=== PATIENT | female | born 1970 | race Caucasian/White ===

== ENCOUNTER → 2017-08-07 13:33 | Outpatient (CLI) | payer MEDICAID, SELFPAY ==
--- NOTE | 2017-08-07 13:36 | US_ITS ---
US transvaginal HISTORY: ITS.REASON: history of uterine fibroid , heavy bleeding ORDERING PHYSICIAN: Obey Burt MD PATIENT AGE: 47 years FINDINGS: The uterus is 9.3 x 6 x 8 cm with a combined endometrial thickness of 12 mm. Nabothian cyst noted. There are 3 areas of heterogeneous echogenicity within the uterus consistent with fibroids one in the fundus of the uterus at 3.4 x 2.9 cm, one in the central aspect of the uterus at 2.8 x 2.4 cm, and one posterior 2.6 x 1.7 cm. Left ovary is 2.7 x 2 cm and contains a 9 mm cyst. There is a large benign-appearing right ovarian cyst which measures 6.7 x 4.4 cm. No cul-de-sac fluid. IMPRESSION: 1. Enlarged uterus with fibroid involvement. 2. Thickened endometrium at 12 mm. Endometrium is somewhat difficult to define secondary to the fibroids 3. 6.7 cm right ovarian cyst
[2017-08-07 14:45] LABS: Basophils % 0.3 % (0.1-2.0); Eosinophils # 0.2 K/mm3 (0.0-0.4); Eosinophils % 2.4 % (0.1-12.0); Hematocrit 38.5 % (37.0-47.0); Hemoglobin 12.3 g/dL (12.2-16.2); Lymphocytes # 2.4 K/mm3 (0.7-4.5); Lymphocytes % 35.5 K/mm3 (10-50); Mean Corpuscular HGB Conc 31.9 g/dL (31.8-35.4); Mean Corpuscular Hemoglobin 28.3 pg (27.0-31.2); Mean Corpuscular Volume 88.5 fl (81-99); Mean Platelet Volume 7.1 fl (7.4-10.4); Monocytes # 0.2 K/mm3 (0.1-1.0); Monocytes % 3.5 % (1.7-9.3); Neutrophils # 3.9 K/mm3 (1.8-7.8); Neutrophils % 58.2 % (37.0-80.0); Platelet Count 285 K/mm3 (142-424); Red Blood Count 4.35 M/mm3 (4.20-5.40); Red Cell Distribution Width 12.9 % (11.5-17.5); White Blood Count 6.8 K/mm3 (4.8-10.8)
== END ==
PROVIDERS: Obstetrics & Gynecology; Family Provider Nurse Practitioner; PCP Nurse Practitioner; Visit Provider Nurse Practitioner Obstetrics & Gynecology
DX: N93.8 Other specified abnormal uterine and vaginal bleeding (principal); D25.0 Submucous leiomyoma of uterus; R10.2 Pelvic and perineal pain
CPT/HCPCS: 36415; 76830; 85025

== ENCOUNTER → 2017-09-05 15:40 | Outpatient (CLI) | payer MEDICAID, SELFPAY | PROVIDERS: Family Provider Nurse Practitioner; PCP Nurse Practitioner; Visit Provider Obstetrics & Gynecology ==

== ENCOUNTER → 2017-09-09 15:55 | Outpatient (CLI) | payer MEDICAID, SELFPAY ==
[2017-09-09 16:38] LABS: Hematocrit 37.5 % (37.0-47.0); Hemoglobin 12.8 g/dL (12.2-16.2)
[2017-09-09 16:51] LABS: Urine Pregnancy, HCG Qual. Negative (Negative)
== END ==
PROVIDERS: Visit Provider Obstetrics & Gynecology
DX: Z01.818 Encounter for other preprocedural examination (principal); N92.0 Excessive and frequent menstruation with regular cycle; N85.2 Hypertrophy of uterus; N94.6 Dysmenorrhea, unspecified; D25.9 Leiomyoma of uterus, unspecified; R93.8 Abnormal findings on diagnostic imaging of other specified body structures; N83.209 Unspecified ovarian cyst, unspecified side; N93.8 Other specified abnormal uterine and vaginal bleeding; Z98.51 Tubal ligation status; Z98.891 History of uterine scar from previous surgery
CPT/HCPCS: 36415; 81025; 85014; 85018

== ENCOUNTER → 2019-03-19 15:54 | Outpatient (CLI) | payer BC, SELFPAY ==
[2019-03-19 16:33] LABS: Hemoglobin A1C 5.7 % (0.0-7.0)
[2019-03-19 16:42] LABS: Alanine Aminotransferase 20 U/L (12-78); Albumin Level 4.1 gm/dL (3.4-5.0); Albumin/Globulin Ratio 1.2 (1.1-1.8); Alkaline Phosphatase 59 U/L (46-116); Anion Gap 12.9 mEq/L (5-15); Aspartate Amino Transferase 16 U/L (15-37); Bilirubin,Total 0.4 mg/dL (0.2-1.0); Blood Urea Nitrogen 16 mg/dL (7-18); Carbon Dioxide 27 mmol/L (21.0-32.0); Chloride 101 mmol/L (98-107); Chol/HDL Ratio 4.4 (1-3.5); Cholesterol 289 mg/dL (140-200); Creatinine,Serum 0.54 mg/dL (0.55-1.02); Estimated Glomerular Filt Rate 120 ml/min (>60); Free Thyroxine Index 0.6 ug/dL (5.93-13.13); GFR (African American) 146 ML/MIN (>60); Globulin 3.4 gm/dl (1.3-3.2); Glucose 87 mg/dL (74-106); HDL Cholesterol 66 mg/dL (29-89); LDL Cholesterol 214 mg/dL (0-130); Potassium 3.9 mmoL/L (3.5-5.1); Sodium 137 mmol/L (136-145); T4 (Thyroxine) 1.9 ug/dl (4.7-13.3); Thyroid Stimulating Hormone 1.06 uIU/ml (0.358-3.740); Total Protein,Serum 7.5 gm/dL (6.4-8.2); Triglycerides 44 mg/dL (30-200); Triiodothryronine (T3) Uptake 32 % (31-39); VLDL Cholesterol 9 mg/dL (0-40)
[2019-03-22 06:39] LABS: Vitamin B12 345 pg/mL (232-1245)
[2019-03-23 06:15] LABS: Folate 14.4 ng/mL (>3.0); Vitamin D 25 Hydroxy 31.9 ng/mL (30.0-100.0)
== END ==
PROVIDERS: Visit Provider Nurse Practitioner
DX: E78.5 Hyperlipidemia, unspecified (principal); I10 Essential (primary) hypertension; R63.5 Abnormal weight gain; R53.83 Other fatigue
CPT/HCPCS: 36415; 80053; 80061; 82607; 82652; 82746; 83036; 84436; 84443; 84479

== ENCOUNTER 2019-04-13 13:00 | Outpatient (RCR) | payer OTHER, SELFPAY | END 2019-04-13 13:05 | disposition home or self-care (01) | LOC: OT 13:00 | PROVIDERS: Visit Provider Plastic Surgery Surgery of the Hand | DX: M79.641 Pain in right hand (principal) | CPT/HCPCS: 97110; 97140; 97166 ==

== ENCOUNTER → 2019-05-18 09:41 | Outpatient (POV) | payer BC, SELFPAY | PROVIDERS: Visit Provider Otolaryngology | DX: Z00.00 Encounter for general adult medical examination without abnormal findings (principal) ==

== ENCOUNTER 2020-01-28 14:00 | Outpatient (RCR) | payer OTHER, SELFPAY ==
--- NOTE | 2019-12-08 14:10 | HMH.PTOPEV ---
PT Outpatient Evaluation Rehab PT Outpatient Evaluation Start: 12/08/19 13:04 Freq: Status: Active Protocol: Document 12/08/19 13:52 CATHY (Rec: 12/08/19 14:09 PHORMEETA [id number]) Electronically Signed By Abdifatah Martinez, PT 12/08/19 13:52 Outpatient Therapy Subjective History Subjective History Pt is 49 yowf who presents with c/o pain all over my back and into my legs and its constant. x 3-4 wks after injury at work. 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 She reports she had a CT scan, but does not know the results of this study . She reports having difficulty with any activity, and even sitting or laying. She presents this date with exaggerated response to all palption and all testing performed. Chief Complaint Pain Symptom Type Ache,Throb,Sharp,Stabbing, Burning,Numbness,Tingling, Shooting Symptoms Relieved By Nothing Symptoms Aggravated By Prone,Supine,Sitting,Standing, Bending/Stooping,Physical Activity,Twisting,Walking, Lifting Prior Functional Limitations None Current Functional Limitations Reaching,Lifting,Housework, Dressing,Driving,Sleeping, Standing,Sitting,Squatting, Recreation Activity,Walking, Stairs,Bending/Stooping Symptom Description Constant and Continuous Level of pain today (0-10) 8 Pain scale - at its worst (0-10) 10 Lumbopelvic Eval Posture Thoracic Spine Posture Standing Position Neutral Lumbar Spine Posture Standing Position Neutral Assistive device Assistive Devices None / NA Gait Observation General Gait Pattern Observation No Deviations/Normal Palapation tenderness bilateral thoracic spinal tenderness Yes: 4/4 lumbar spinal tenderness Yes: 4/4 paraspinal tenderness Yes: 4/4 buttock tenderness Yes: 4/4 Lumbar/Sacral Palpation Findings Tenderness Lumbar/Sacral Palpation Overall Comment exaggerated response
--- NOTE | 2020-01-13 15:06 | HMH.RHREAS ---
Rehab Reassessment Rehab OP Re-assessment Start: 01/13/20 15:01 Freq: Status: Active Protocol: Document 01/13/20 15:02 CATHY (Rec: 01/13/20 15:06 CATHY [id number]) Electronically Signed By Abdifatah Martinez, PT 01/13/20 15:02 Rehab Re-assessment Subjective Subjective Pt reports 9/10 pain the this time after treatment session with no relief of symptoms at all per her report. Objective Objective Notes Lumbar AROM (in deg): Flex= 0- 40, Ext= 0-10, R SB= 0-10, L SB= 0-5. Assessment Progress Assessment No Progress Assessment Notes Pt has less lumbar AROM this date than she had on initial eval and continues to c/o pain acorss her entire lower back region without changes despite all attempts to relieve by therapy. Patient goals met none Goals Not Met ST,2,3,4,5 LT,2,3, 4,5,6 Revised Goals none Plan Plan Continue per initial POC. PATIENT WOULD BENEFIT FROM REFERRAL TO PAIN MANAGEMENT. Frequency of Therapy 2 x/wk Duration of therapy 8 wks Time and Billing Re-Eval Time 15 Re-Eval Billing Units 1 PHYSICIAN CERTIFICATION: I certify the specified therapy services for Radha Gabriel are required, authorized, and reviewed every 30 days.
== END 2020-01-28 15:00 | disposition home or self-care (01) ==
LOC: PT 14:00
PROVIDERS: Visit Provider Nurse Practitioner Family
DX: S39.012D Strain of muscle, fascia and tendon of lower back, subsequent encounter; S39.92XD Unspecified injury of lower back, subsequent encounter
CPT/HCPCS: 97010; 97014; 97033; 97035; 97110; 97140; 97163; 97164; G0283

== ENCOUNTER → 2020-02-17 14:17 | Outpatient (CLI) | payer OTHER, SELFPAY ==
--- NOTE | 2020-02-17 14:20 | MR_ITS ---
PROCEDURE: MR LUMBAR SPINE WO CON CLINICAL INDICATION: LOW BACK PAIN Low back pain following injury COMPARISON: No exams were available for comparison TECHNIQUE: Standard multiplanar multiecho sequences are performed without contrast. 3-D MIP and myelographic images are also rendered and reviewed FINDINGS: There is normal alignment. The spinal cord ends at the L1-L2 level. There is increased T1 and T2 signal in within the L1 vertebral body consistent with a lipid rich hemangioma or lipoma. L1-L2 and L2-L3 have an unremarkable appearance. L3-L4: Minimal concentric bulging disc along with mild facet and ligamentum hypertrophy with mild bilateral lateral recess and foraminal narrowing. L4-5: Mild bulging disc along with facet and ligamentum hypertrophy with bilateral lateral recess narrowing mild right llru-fa-rxmgwauy foraminal narrowing bilaterally. There is borderline narrowing of the canal at this level. L5-S1: Mild facet and ligamentum hypertrophic changes. No extruded herniated disc is evident. No acute fracture or malalignment. IMPRESSION: 1. L3-L4: Minimal concentric bulging disc along with mild facet and ligamentum hypertrophy with mild bilateral lateral recess and foraminal narrowing. 2. L4-5: Mild bulging disc along with facet and ligamentum hypertrophy with bilateral lateral recess narrowing mild right vahb-ef-gvldflxw foraminal narrowing bilaterally. There is borderline narrowing of the canal at this level. 3. L5-S1: Mild facet and ligamentum hypertrophic changes. 4. No extruded herniated disc or fracture apparent Dictated by: Marco Antonio Aguilar MD 02/19/2020 12:09 Marco Antonio Aguilar MD in [place] 02/19/2020 12:09
== END ==
PROVIDERS: PCP Nurse Practitioner Family; Visit Provider Nurse Practitioner Family
DX: S39.92XD Unspecified injury of lower back, subsequent encounter (principal); M54.5 Low back pain
CPT/HCPCS: 72148; 76376

== ENCOUNTER → 2020-03-20 10:31 | Outpatient (POV) | payer BC, SELFPAY ==
[2020-03-20 10:46] VITALS: BP 145/98; PULSE 96; RESP 18; TEMP 36.6; O2SAT 99; BMI 26.9
--- NOTE | 2020-03-20 12:32 | HMH.PMCON ---
Assessment and Plan (1) Degenerative disc disease Status: Chronic Qualifiers: Spinal region: lumbar Qualified Code(s): M51.36 - Other intervertebral disc degeneration, lumbar region Category: Medical (2) Lumbar radiculopathy Status: Chronic Category: Medical Code(s): M54.16 - Radiculopathy, lumbar region - Assessment and plan all Dx Assessment and Plan for all problems:: We will schedule the patient for an L4-L5 lumbar epidural steroid injection. I do believe given her symptomology that this will be beneficial with her. I answered all of her questions. I discussed the plan of treatment with her. Patient not on any anticoagulation therapy. I will follow-up with her after her injection reassess her symptoms at that time she has been instructed to call the office if she has any issues prior to next appointment. Dr. Charles has reviewed this note and agrees with this plan of care. This note was dictated using voice recognition software and may contain errors or omissions HPI - Data of Consult Consult date: 03/20/20 Requesting Physician: Mariya Kaur APRN Primary Care Provider: Leyla Vasquez APRN - Consult Narrative Reason for consult: Back pain, leg pain History of present illness: Ms. Gabriel is a 49 year old female who presents today with a complaint of low back pain. 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 She had low back pain with numbness and radiation of her pain. Patient at that time had a CT scan showing bulging disks and degeneration in her lower back. Patient since had an MRI that also shows these findings. Patient has pain in her low back radiating down bilateral lower extremities to her feet. All activity makes it worse with nothing decreases her pain. She is tried and failed medications including Tylenol, steroids, other anti-inflammatories. She rates her pain a 5 out of 10 today. She has difficulty with activities of daily living. Patient has continued physical therapy with no relief at this time. Patient is interested in injective therapy. CC: Mariya Kaur APRN [facility] History I have reviewed the patient's past medical history: Yes Medical History: Reports:: Hyperlipidemia, Hypertension Denies:: Anxiety, Cancer, Depression, Diabetes Mellitus Type 1, Diabetes Mellitus Type 2, Internal Pacemaker, MRSA, Seizures *Have you ever received a pneumonia vaccine?: Yes *Have you received a flu vaccine this season?: Yes Other Medical History: Denies: Blood Transfusion Reaction Other Surgeries: Yes: Appendectomy, BSO (RSO ), Cholecystectomy, Colonoscopy, , Dilation and Curettage, Tubal Ligation, Other. No: Pacemaker Amputation: No Fractures: No - *Social History Smoking Status: Never smoker Alcohol Intake: never Substance Use Type: denies use *Occupational Status:: other Housing: house Household Members: other *Travel in the last 8 weeks: None - Psychiatric History Pschychiatric History:: Denies:: Anxiety, Depression Family Hx:: Unable to obtain Review of Systems - Review of Systems ROS General: no recent weight change, no fever, no sleep disturbances Respiratory: no cough, no shortness of air, no recurring pulmonary infections Cardiovascular/Peripheral Vascular: No chest pain, No palpitations, no edema, no shortness of breath. Gastrointestinal: no new onset incontinence, normal bowel movements reported Genitourinary: no new onset incontinence Musculoskeletal: Back pain, leg pain Psychiatric: normal mood/ affect Neurological: [denies new onset weakness in extremities], [denies new onset balance issues] Meds Home Medications Medication Instructions Recorded Confirmed Type gemfibrozil 600 mg tablet 600 mg PO BID 30 Days #60 07/14/17 09/10/17 History minocycline 100 mg capsule 100 mg PO DAILY 30 Days #30 07/14/17 History spironolactone 25 25 mg PO DAILY 30 Days #30
== END ==
PROVIDERS: PCP Nurse Practitioner Family; Visit Provider Clinical Nurse Specialist Family Health
DX: M51.16 Intervertebral disc disorders with radiculopathy, lumbar region (principal)
CPT/HCPCS: 99202

== ENCOUNTER 2020-05-22 18:08 | Emergency (ER) | payer BC, SELFPAY ==
[2020-05-22 18:20] VITALS: BP 149/95; PULSE 93; RESP 18; TEMP 36.7; O2SAT 100; BMI 24.5
--- NOTE | 2020-05-22 18:29 | HMH.EDUTC ---
[facility] [place] Disposition Clinical Impression: Bronchitis, Viral syndrome Disposition: Home, Self-Care Condition on Discharge: Good Instructions: DI for Acute Bronchitis Additional Instructions: Drink plenty of fluids. Take tylenol for pain or fever. Return if you begin to have difficulty breathing. Follow up with your regular doctor. GO TO THE ER FOR ANY WORSENING SYMPTOMS Prescriptions: Benzonatate [Tessalon Perle 100mg Cap] 100 mg PO TIDP PRN #30 cap PRN Reason: Cough Transmission Status: Received by [facility] Azithromycin [Z-Anthony 250mg Tab*] 250 mg PO UD DOSE PK #6 tab Transmission Status: Received by [facility] Referrals: Marilee Elder APRN [Primary Care Provider] - Forms: Work/School Release Time of Disposition: 19:08 Medical Decision Making - Medical Records Medical records reviewed: No: I reviewed the patient's medical records. - Herve Inquiry Pt receiving controlled substance: No Vital Signs: 05/22/20 18:20 05/22/20 19:12 Temperature 98.1 F 98.1 F Temperature Source Oral Pulse Rate 93 H Pulse Rate [Right Brachial] 93 H Respiratory Rate 18 18 Blood Pressure 149/95 H Blood Pressure [Right Arm] 149/95 H Blood Pressure Mean [Right Arm] 113 Blood Pressure Source [Right Arm] Automatic Cuff Blood Pressure Position [Right Arm] Sitting 02 Sat by Pulse Oximetry 100 Oxygen Delivery Method Room Air - Lab Data Lab Results 05/22/20 18:39: Influenza Type A Ag Negative, Influenza Type B Ag Negative 05/22/20 18:55: Urine Color Yellow, Urine Appearance Clear, Urine pH 6.0, Ur Specific [place] 1.025, Urine Protein Negative, Urine Glucose (UA) Negative, Urine Ketones Negative, Urine Blood 3+, Urine Nitrate Negative, Urine Bilirubin Negative, Urine Urobilinogen 0.2, Ur Leukocyte Esterase Negative Orders (Tests/Meds): ORDERS Category Date Time Status Urine Culture Routine Micro 05/22/20 18:55 Received [facility] [place] HPI - General Stated complaint: fever,ears,cough,tighness in chest Time Seen by Provider: 05/22/20 18:25 - History of Present Illness Provider Complaint: She states that she had covid-19 about 3 weeks ago. She got better originally, but then over the past 1 week she has began coughing and feeling bad again. - Related Data Home Medications Medication Instructions Recorded Confirmed gemfibrozil 600 mg tablet 600 mg PO BID 30 Days #60 07/14/17 09/10/17 minocycline 100 mg capsule 100 mg PO DAILY 30 Days #30 07/14/17 spironolactone 25 25 mg PO DAILY 30 Days #30 07/14/17 09/10/17 mg-hydrochlorothiazide 25 mg tablet Phentermine HCl [Adipex-P] 37.5 mg PO DAILY 09/09/17 09/10/17 oxycodone-acetaminophen 5 mg-325 PO 3 Days #30 10/03/17 mg tablet Previous Rx's Medication Instructions Recorded medroxyprogesterone 10 mg tablet 10 mg PO BID #30 tab 09/03/17 ondansetron HCl 4 mg tablet 4 mg PO Q6H PRN #20 tab 09/12/17 Azithromycin [Z-Anthony 250mg Tab*] 250 mg PO UD DOSE PK #6 tab 05/22/20 Benzonatate [Tessalon Perle 100mg 100 mg PO TIDP PRN #30 cap 05/22/20 Cap] Allergies Allergy/AdvReac Type Severity Reaction Status Date / Time ciprofloxacin Allergy Severe Hives Verified 10/03/17 13:50 cefdinir [From OMNICEF] Allergy Mild Verified 10/03/17 13:50 phenazopyridine Allergy Mild Verified 10/03/17 13:50 [From PYRIDIUM] Sulfa (Sulfonamide Allergy Mild Verified 10/03/17 13:50 Antibiotics) [SULFA (SULFONAMIDE ANTIBIOTICS)] Penicillins [PENICILLINS] Allergy Unknown Verified 10/03/17 13:50 [facility] History - Hepatitis A Screen Attestation statement:: This patient has been screened for Hepatitis A risk factors. I have reviewed the patient's past medical history: Yes Medical History: Reports:: Hyperlipidemia, Hypertension Denies:: Anxiety, Cancer, Depression, Diabetes Mellitus Type 1, Diabetes Mellitus Type 2, Internal Pacemaker, MRSA, Seizures Other Medical History: Denies: Blood Transfusion Reaction Comment: Pt re
--- NOTE | 2020-05-22 18:39 | XR_ITS ---
PROCEDURE: XR CHEST 2V CLINICAL HISTORY: COUGH COMPARISON: No exams were available for comparison FINDINGS: The cardiomediastinal silhouette and pulmonary vascularity are within normal limits. The lungs are clear without infiltrates, suspicious nodules, or pleural effusions. No acute bony abnormalities. IMPRESSION: No acute findings. Dictated by: Marco Antonio Aguilar MD 05/22/2020 19:09 Marco Antonio Aguilar MD in [place] 05/22/2020 19:09
[2020-05-22 18:45] LABS: UTC Influenza A Antigen Negative (Negative); UTC Influenza B Antigen Negative (Negative)
[2020-05-22 19:07] LABS: Apearance,Urine Clear (Clear); Color,Urine Yellow (Yellow)
[2020-05-22 19:08] LABS: Blood, Urine 3+ (Negative); Glucose,Urine (UA) Negative (Negative); Ketones,Urine Negative (Negative); Protein,Urine Negative (Negative); Specific Gravity, Urine 1.025 (1.005-1.030)
[2020-05-22 19:09] LABS: Bilirubin,Urine Negative (Negative); Urobilinogen,Urine 0.2 EU/dl (0.2)
[2020-05-22 19:10] LABS: UTC Leukocyte Esterase,Urine Negative (Negative); UTC Nitrate,Urine Negative (Negative)
[2020-05-22 19:12] VITALS: BP 149/95; PULSE 93; RESP 18; TEMP 36.7; O2SAT 100
== END 2020-05-22 19:26 | disposition home or self-care (01) ==
PROVIDERS: Emergency Provider Nurse Practitioner Family; PCP Nurse Practitioner
DX: J20.9 Acute bronchitis, unspecified (principal); B34.9 Viral infection, unspecified; Z86.16 Personal history of COVID-19; I10 Essential (primary) hypertension; E78.5 Hyperlipidemia, unspecified; Z79.899 Other long term (current) drug therapy; Z88.0 Allergy status to penicillin; Z88.2 Allergy status to sulfonamides
CPT/HCPCS: 71046; 81003; 87086; 87804; 99202; G0463

== ENCOUNTER → 2020-10-26 11:08 | Outpatient (CLI) | payer BC, SELFPAY | PROVIDERS: Visit Provider Family Medicine | DX: R19.5 Other fecal abnormalities (principal) | CPT/HCPCS: 87045 ==

== ENCOUNTER → 2020-11-06 15:30 | Outpatient (CLI) | payer BC, SELFPAY ==
[2020-11-06 15:33] LABS: Adenovirus F 40/41, stool Not Detected (NotDetected); Astrovirus Not Detected (NotDetected); Campylobacter Not Detected (NotDetected); Clostridium Difficile A/B, PCR Not Detected (NotDetected); Cryptosporidium Not Detected (NotDetected); Cyclospora Cayetanesis Not Detected (NotDetected); Entamoeba histolytica Not Detected (NotDetected); Enteroaggregative E coli Not Detected (NotDetected); Enteropathogenic E coli Not Detected (NotDetected); Enterotoxigenic E coli Not Detected (NotDetected); Giardia lamblia Not Detected (NotDetected); Norovirus Not Detected (NotDetected); Plesimonas Shigalloides, PCR Not Detected (NotDetected); Rotavirus A Not Detected (NotDetected); Salmonella, PCR Not Detected (NotDetected); Sapovirus Not Detected (NotDetected); Shiga-like toxin E coli Not Detected (NotDetected); Shigella Enterovasive E coli Not Detected (NotDetected); Vibrio Cholerae Not Detected (NotDetected); Vibrio, PCR Not Detected (NotDetected); Yersinia Entercolitica, PCR Not Detected (NotDetected)
== END ==
PROVIDERS: Visit Provider Family Medicine
DX: A09 Infectious gastroenteritis and colitis, unspecified (principal)
CPT/HCPCS: 87507

== ENCOUNTER 2021-08-26 15:25 | Emergency (ER) | payer BC, SELFPAY ==
[2021-08-26 15:35] VITALS: BP 129/89; PULSE 103; RESP 18; TEMP 36.9; O2SAT 99; BMI 22.3
--- NOTE | 2021-08-26 15:46 | HMH.EDUTC ---
[facility] [place] Disposition Clinical Impression: Fluid level behind tympanic membrane of both ears Disposition: Home, Self-Care Condition on Discharge: Good Instructions: DI for Ear Pain-Adult Additional Instructions: follow up with pcp return or be seen in ed if no improvement or worsen Prescriptions: methylPREDNISolone [Medrol 4mg tab] 4 mg PO DIRECTED #21 tab Prescription Printed Referrals: Pio Cohen MD [Primary Care Provider] - Time of Disposition: 16:07 Medical Decision Making - Herve Inquiry Pt receiving controlled substance: No Vital Signs: 08/26/21 15:35 Temperature 98.4 F Temperature Source Oral Pulse Rate [Left Brachial] 103 H Respiratory Rate 18 Blood Pressure [Left Arm] 129/89 Blood Pressure Mean [Left Arm] 102 Blood Pressure Source [Left Arm] Automatic Cuff Blood Pressure Position [Left Arm] Sitting 02 Sat by Pulse Oximetry 99 Oxygen Delivery Method Room Air Medical Decision Narrative: advised pt to go be checked in ed and have labs she declined [facility] [place] HPI - General Chief complaint: Urgent Treatment Center Stated complaint: light headed dizzy, ear pain Time Seen by Provider: 08/26/21 15:46 Mode of Arrival: Ambulatory Source of Information: Patient Limitations: No Limitations Description of Symptoms (Recalled from Triage Doc. by RN): PATIENT STATES SHE FEEL LIKE HER EARS ARE FULL AND SHE C/O DIZZY/LIGHT-HEADED EPISODE ON FRIDAY HEENT Symptoms (Recalled from RN notes): Yes Resp Symptoms (Recalled from RN notes): No Skin Symptoms (Recalled from RN notes): No MS Symptoms (Recalled from RN notes): No Functional Status (Recalled from RN notes): WNL - History of Present Illness Provider Complaint: 51 yr old female presents for ears feeling full and dizziness since friday. pt states this happens freq. pt does not want testing or to go to ed - Related Data Home Medications Medication Instructions Recorded Confirmed gemfibrozil 600 mg tablet 600 mg PO BID 30 Days #60 07/14/17 04/19/21 spironolactone 25 25 mg PO DAILY 30 Days #30 07/14/17 04/19/21 mg-hydrochlorothiazide 25 mg tablet Previous Rx's Medication Instructions Recorded estradiol 1 mg tablet 1 mg PO DAILY #30 tab 04/19/21 medroxyprogesterone 10 mg tablet 10 mg PO DAILY 30 Days #30 tab 04/19/21 methylPREDNISolone [Medrol 4mg 4 mg PO DIRECTED #21 tab 08/26/21 tab] Allergies Allergy/AdvReac Type Severity Reaction Status Date / Time ciprofloxacin Allergy Severe Hives Verified 04/19/21 15:43 cefdinir [From OMNICEF] Allergy Mild Verified 04/19/21 15:43 phenazopyridine Allergy Mild Verified 04/19/21 15:43 [From PYRIDIUM] Sulfa (Sulfonamide Allergy Mild Verified 04/19/21 15:43 Antibiotics) [SULFA (SULFONAMIDE ANTIBIOTICS)] Penicillins [PENICILLINS] Allergy Unknown Verified 04/19/21 15:43 - Worker's Comp Is this a Worker's Comp case?: No [facility] History - Hepatitis A Screen Attestation statement:: This patient has been screened for Hepatitis A risk factors. I have reviewed the patient's past medical history: Yes Medical History: Reports:: Hyperlipidemia, Hypertension Denies:: Anxiety, Cancer, Depression, Diabetes Mellitus Type 1, Diabetes Mellitus Type 2, Internal Pacemaker, MRSA, Seizures Other Medical History: Denies: Blood Transfusion Reaction Comment: Pt relates she has irregular menses and is going to have an ablation next week. Other Surgeries: Yes: Appendectomy, BSO (RSO ), Cholecystectomy, Colonoscopy, , Dilation and Curettage, Tubal Ligation, Other. No: Pacemaker Amputation: No Fractures: No - Social History Smoking Status: Never smoker Alcohol Intake: never Substance Use Type: denies use Occupational Status: other Housing: house Household Members: other - Psychiatric History Pschychiatric History:: Denies:: Anxiety, Depression Family Hx:: Unable to obtain ROS Obtained: Yes Systems reviewed as appropriate & no additional complaints - Constitut
[2021-08-26 16:10] VITALS: BP 129/89; PULSE 103; RESP 18; TEMP 36.9; O2SAT 99
== END 2021-08-26 16:15 | disposition home or self-care (01) ==
PROVIDERS: Emergency Provider Nurse Practitioner Family; PCP Family Medicine
DX: H65.93 Unspecified nonsuppurative otitis media, bilateral (principal); R42 Dizziness and giddiness; I10 Essential (primary) hypertension; Z88.0 Allergy status to penicillin; Z88.2 Allergy status to sulfonamides
CPT/HCPCS: 99212; G0463

== ENCOUNTER 2022-01-04 13:34 | Emergency (ER) | payer OTHER, BC, SELFPAY ==
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
[2022-01-04 15:06] VITALS: BP 141/115; PULSE 103; RESP 19; TEMP 37; O2SAT 100; BMI 24.5
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
[2022-01-04 16:56] VITALS: BP 120/80; PULSE 86; RESP 19; TEMP 37
== END 2022-01-04 16:59 | disposition home or self-care (01) ==
PROVIDERS: Emergency Provider Physician Assistant; PCP Family Medicine
DX: M25.80 Other specified joint disorders, unspecified joint; M62.838 Other muscle spasm; S13.4XXA Sprain of ligaments of cervical spine, initial encounter; R93.89 Abnormal findings on diagnostic imaging of other specified body structures; V43.92XA Unspecified car occupant injured in collision with other type car in traffic accident, initial encounter; Z88.0 Allergy status to penicillin; Z88.1 Allergy status to other antibiotic agents; Z88.2 Allergy status to sulfonamides
CPT/HCPCS: 72040; 99212; G0463

== ENCOUNTER → 2022-01-31 12:49 | Outpatient (CLI) | payer OTHER, BC, SELFPAY ==
--- NOTE | 2022-01-31 13:07 | CT_ITS ---
FINAL REPORT TECHNIQUE: Thin section axial CT images were obtained through the neck after intravenous contrast administration. Coronal and sagittal reformats were also obtained. This study was performed with techniques to keep radiation doses as low as reasonably achievable (ALARA). Individualized dose reduction techniques using automated exposure control or adjustment of mA and/or kV according to the patient''s size were employed. CLINICAL HISTORY: ABNORMAL XRAY OF C SPINE COMPARISON: Cervical spine radiographs dated 01/04/2022 and 07/22/2016 FINDINGS: The nasopharynx, oropharynx, hypopharynx and larynx are unremarkable. There are small neck nodes. There is no adenopathy. There is a calcified nodule in the left thyroid lobe measuring 17 mm. This appears stable as compared to radiographs dated 07/22/2016. The visualized sinuses are clear. There is no acute osseous abnormality. IMPRESSION: No acute process. Stable, 17 mm calcified nodule in the left thyroid lobe. Reviewed, Interpreted and Dictated by Adrien Poole III, MD Transcribed by Gwen Treadwell Authenticated and [facility]
[2022-01-31 13:17] LABS: Blood Urea Nitrogen 16 mg/dl (7-17); Estimated Glomerular Filt Rate 76 ml/min (>60); GFR (African American) 92 ML/MIN (>60)
== END ==
PROVIDERS: PCP Family Medicine; Visit Provider Family Medicine
DX: R93.7 Abnormal findings on diagnostic imaging of other parts of musculoskeletal system (principal)
CPT/HCPCS: 36415; 70491; 82565; 84520; Q9967

== ENCOUNTER 2022-03-08 15:00 | Outpatient (RCR) | payer OTHER, BC, SELFPAY | END 2022-03-08 15:05 | disposition home or self-care (01) | LOC: PT 15:00 | PROVIDERS: Visit Provider Physician Assistant | DX: M54.2 Cervicalgia (principal) | CPT/HCPCS: 20561; 97010; 97014; 97110; 97163; G0283 ==

== ENCOUNTER 2022-04-26 15:00 | Outpatient (RCR) | payer BC, OTHER, SELFPAY ==
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
--- NOTE | 2022-04-11 16:21 | HMH.RHREAS ---
Rehab Reassessment Rehab OP Re-assessment Start: 04/11/22 15:32 Freq: Status: Active Protocol: Document 04/11/22 15:32 RMNISHA (Rec: 04/11/22 16:21 RMARSHALL [id number]) E-signed By Luis uYan OT Rehab Re-assessment Subjective Subjective I don't see a real big difference. Objective Objective Notes Pt continues to be seen for left shoulder deficits. Pt engages in AROM, AAROM, and strengthening exercises at left shoulder. Pt receives PROM manual stretching to left shoulder in all planes. Modalities are provided in order to decrease pain/ inflammation. Assessment Progress Assessment Slower Than Expected Assessment Notes Pt has not attended a therapy session for 34 days. Pt reports she was not able to due to other health concerns; a mass was found in her c- spine. Pt continues to complain of the same pain in left shoulder, specifically in abduction. Pt's AROM and strength remain significantly limited. She recently saw her PCP who informed her to continue with therapy. At this time, no progress has been made. Her pain today at rest is 5/10. She still complains of her worst pain reaching a 9/10 during certain movements. Current AROM Flex: 110 degrees; 3- Abd: 65 degrees; 3- ER: 50 degrees; 3- IR: 35 degrees; 3- Patient goals met Pt has not met any goals at this time Goals Not Met See below Revised Goals ST-5 LT-5 Plan Plan Therapist will continue with OT plan of care at this time. However, pt would benefit from an MRI for further imaging due to continued
== END 2022-04-26 15:05 | disposition home or self-care (01) ==
LOC: OT 15:00
PROVIDERS: Visit Provider Physician Assistant
DX: M25.512 Pain in left shoulder (principal)
CPT/HCPCS: 97010; 97014; 97110; 97140; 97164; 97166; G0283

== ENCOUNTER → 2022-05-01 15:34 | Outpatient (CLI) | payer OTHER, BC, SELFPAY ==
--- NOTE | 2022-05-01 15:39 | XR_ITS ---
FINAL REPORT CLINICAL HISTORY: shoulder pain FINDINGS: LEFT SHOULDER 3 views of the left shoulder were obtained. There is no acute fracture or dislocation. The joint spaces are intact. There is no soft tissue abnormality. IMPRESSION: No acute bony abnormality. Reviewed, Interpreted and Dictated by Celestino Maxwell MD Transcribed by Liseth Higgins Authenticated and [facility]
== END ==
PROVIDERS: PCP Family Medicine; Visit Provider Physician Assistant Surgical
DX: M25.512 Pain in left shoulder (principal)
CPT/HCPCS: 73030

== ENCOUNTER → 2022-05-09 15:45 | Outpatient (CLI) | payer BC, SELFPAY ==
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
== END ==
PROVIDERS: PCP Physician Assistant Surgical; Visit Provider Physician Assistant Surgical
DX: M75.102 Unspecified rotator cuff tear or rupture of left shoulder, not specified as traumatic (principal)
CPT/HCPCS: 73221

== ENCOUNTER → 2022-06-05 09:53 | Outpatient (CLI) | payer OTHER, BC, SELFPAY ==
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
--- NOTE | 2022-06-05 09:54 | IR_ITS ---
FINAL REPORT CLINICAL HISTORY: shoulder injury 14 seconds fluoro time FINDINGS: Arthrogram Left shoulder injection for MRI arthrogram HISTORY: Left shoulder pain. PROCEDURE: After informed consent was obtained, a time-out was performed. Utilizing local anesthesia and sterile technique, with direct fluoroscopic guidance, access to the joint was obtained . A small amount of contrast was injected to confirm needle tip location. Additional gadolinium contrast was injected. IMPRESSION: Status post injection for MRI arthrogram without immediate complication. Please see MRI report. FLUOROSCOPY TIME: 14 seconds Films reviewed , interpreted and dictated by Dr. Geronimo. Transcribed by Papi Salgado PA-C. Reviewed, Interpreted and Dictated by Bridger Geronimo MD Transcribed by MAYUR Dhillon Authenticated and . [facility]
== END ==
PROVIDERS: PCP Physician Assistant Surgical; Visit Provider Physician Assistant Surgical
DX: M75.102 Unspecified rotator cuff tear or rupture of left shoulder, not specified as traumatic (principal)
CPT/HCPCS: 73040; 73222; Q9967

== ENCOUNTER → 2022-06-28 15:01 | Outpatient (CLI) | payer OTHER, BC, SELFPAY ==
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
== END ==
PROVIDERS: PCP Family Medicine; Visit Provider Orthopaedic Surgery
DX: M54.2 Cervicalgia (principal); S49.92XA Unspecified injury of left shoulder and upper arm, initial encounter
CPT/HCPCS: 72141; 76376

== ENCOUNTER 2024-10-08 11:40 | Outpatient (CLI) | payer OTHER, SELFPAY ==
--- OUTSIDE RECORDS SUMMARY | 2024-08-13 08:54 | XMS_ITS | Encounter Summary ---
Author Organization [facility] Address [address] [place] [address] Care Team Providers Care Spool Salvager Name Role Phone Gabe Cohen MD Primary Care Provider Reason for Visit * Consultation (Routine) - Authorized Specialty Diagnoses / Procedures Referred By Tanika lao Referred To Contact Physical Therapy Diagnoses Complex regional pain syndrome I Left arm weakness Herb Stauffer MD [address] [place] [address] Phone: tel: fax: [facility] [address] [place] [address] Phone: tel: fax: Referral ID Status Reason Start Date Expiration Date Visits Requested Visits Authorized [id number] Authorized Consult and Treat 11/11/2023 12/26/2024 1 39 Encounter Details Date Type Department Care Team (Latest Contact Info) Description 08/13/2024 8:54 AM EDT - 08/13/2024 11:59 PM EDT Hospital Encounter [facility] [address] [place] [address] Isaura Rae Complex regional pain syndrome type 1 of left upper extremity (Primary Dx) Discharge Disposition: Still a Patient Social History Tobacco Use Types Packs/Day Years Used Date Smoking Tobacco: Never Smokeless Tobacco: Never Comments Unknown Sex and Gender Information Value Date Recorded Sex Assigned at Female 04/01/2024 1:10 PM EST Legal Sex Female 7:39 PM EDT Gender Identity Female 04/01/2024 1:10 PM EST Sexual Orientation Straight 04/01/2024 1: 10 PM EST documented as of this encounter Medications at Time of Discharge amitriptyline (Elavil) 25 MG tabletIndications :Complex regional pain syndrome type 1 of left upper extremity Take 1 tablet (25 mg) by mouth every night. 30 tablet 05/06/2023 gemfibrozil (Lopid) 600 MG tablet 02/12/2023 gemfibrozil (Lopid) 600 MG tablet Take 1 tablet (600 mg) by mouth. 01/03/2017 spironolactone-hy droCHLOROthiazide (Aldactazide) 25-25 MG tablet 02/12/2023 spironolactone-hy droCHLOROthiazide (Aldactazide) 25-25 MG tablet Take 1 tablet (25 mg) by mouth 1 (one) time each day. documented as of this encounter Miscellaneous Notes * Progress Notes - Isaura Rae - 08/13/2024 9:00 AM EDT Physical Therapy PT Daily Treatment Note DATE: 08/13/24 NAME: Radha Gabriel Date of : 1970 Therapist: Isaura Rae Subjective Patient reporting she feels she is adjusting to her medicine, is feeling less drowsy. Sees Doniat again in 2 weeks time. Treatment/Objective Assessment: Activity Reps/Timing Comments Smooth Pursuits in horizontal and diagonal planes. Seated edge of mat. Providing auditory stimulus while attempting to maintain fixation with both still and moving target. No complaints of eye symptoms this date but patient was easily frustrated and found it difficult to sustain attention on both tasks. Frequently would look down and to right to focus on auditory stimulus and then return to visual fixation after. Color Discrimination with eyes focusing to left or right while holding head still. 100% accuracy but slow speed and patient reporting sensation of frustration due to eyes moving more slowly than she wants when looking to left. Discriminatory Sensation challenge task using various objects of different size and texture in sitting. Needed assist to provide verbal description but improved with encouragement and practice. Noticeable difference in perception of objects between neck and right hand observed by patient. Patient tolerated well and found sensation on her neck relaxing. Tactile stimulation paired with auditory stimulus and visual imagery, tactile stimulation progressively moved to left side of neck and shoulder, as well as left thumb. Focused on directing attention away from tactile stimulus and then returning attention to stimulus and trying to locate stimulus position on neck or left thumb today. Utilizing feather and sponge for tactile stimulus to left side of face and left hand this date. Patient still very resistant to providing stimulation herself, prefers for therapist to do it. Reports feather feels very sharp, like needles. Although sponge feels rough, does not describe as painful, prefers this type of stimulation. Created tingling type sensation after stimulus removed, patient with difficulty providing location specifically but was better able to localize on hand today than previously with neck stimulus placement. High Contrast Background exposure Breath Work Training: Trialed both Anuloma Viloma in both directions, left nostril only breathing, and Ujjayi breath as well as extended exhalation through mouth with visual biofeedback of moving feather. Patient with best HRV noted during breath work, reporting some lightheadedness during training. Patient responded best to anuloma-viloma with inhale through left nostril, exhale through right. Struggle to exhale through left nostril despite clear airway with breathing pattern reversed and withsingle nostril breathing. Did well with Ujayii but struggled to exhale enough air to make a strong sound. NeuroCom Weight shifting with External Feedback: level 2 Center 3 Left Left Forward/Backward Midline Left/Right Pinwheel Center 3 Forward on Rocker Board Center 3 Forward on Foam Pinwheel on Foam Center Hold on Foam with Saccades and gaze hold at end range using post its on wall x 3 minutes with bedside table at side with pillow for attempted support under left elbow. PT providing intermittent tactile stim to back left arm, patient was unaware but did present with less left weight shift when stimulation was being provided than when it was note. Wii activities for weight shifting: Soccer ball heading Ball tilting Ski [place] Ski Jump Tight Rope Walk Bowling PT providing SBA and support with cues for spatial orientation. Virtual Reality Head Set Games: Lean Into the IAT-Auto Beach-critter find Candy[place]-critter find Robot Find with binaural sound Seated initially with games selected to increase left/right differentiation and head and trunk movement. Progressed to standing and increased game difficulty as tolerated. Patient wearing headset with far less avoidance of tactile and pressure stimulation to left sideof face and head today. Much improved left head rotation and side bending without pain this date. Noted increased difficulty with locating sounds in left ear/left side. Education Today's Treatment Needs Communication Device: No Patient Understanding of Basic Information: Understands, able to self manage Barriers to Learning: None Readiness to Learn: Accepting Did Patient/Family Demonstrate Learning: Pt/Family verbalizes understanding, Pt/Family demonstratesunderstanding Who Was Educated: Patient, Family Rehab Potential: Good Education Given: Verbal, Demonstrated [place] ADaPT protocol Physical Therapy Home Exercise Program Cardio: Perform 4-6 times a week (minimum 3 days per week) Don't skip for more than 2 days in a row Include 3-5min warm up/cool down at RPE 1/10 Supine Target HR: 101-106 Once able to maintain HR target for 20 consecutive minutes greater than or equal to 3 days per week- INCREASE HR zone by 5bpm Once you progress more than 15bpm let PT know (116-126) Start with supine wall/heel slides Strength: Preform 2 times a week Legs need to be at or above head Heartrate must be less than target HR (106) Pick 3-5 exercises to complete to start See HEP sheet given Access Code: [email or web address] URL: [email or web address] Date: 07/17/2023 Prepared by: Shayna Flores Program Notes Keep HR below target HR Exercises - Supine Bridge - 1 x daily - 2 x weekly - 2 sets - 10 reps - Clamshell - 1 x daily - 2 x weekly - 2 sets - 10 reps - Supine SLR - 1 x daily - 2 x weekly - 2 sets - 10 reps - Supine March - 1 x daily - 2 x weekly - 2 sets - 10 reps - Supine Heel Slide - 1 x daily - 2 x weekly - 2 sets - 10 reps - Prone Hip Extension - 1 x daily - 2 x weekly - 2 sets - 10 reps - Prone Knee Flexion - 1 x daily - 2 x weekly - 2 sets - 10 reps - Bent Knee Fallouts - 1 x daily - 2 x weekly - 2 sets - 10 reps - Supine Chin Tuck - 1 x daily - 2 x weekly - 2 sets - 10 reps - Swimmer - 1 x daily - 2 x weekly - 2 sets - 10 reps - Clamshell with Resistance - 1 x daily - 2 x weekly - 2 sets - 10 reps - Supine March with Resistance Band - 1 x daily - 2 x weekly - 2 sets - 10 reps - Prone Alternating Arm and Leg Lifts - 1 x daily - 2 x weekly - 2 sets - 10 reps - Prone Scapular Retraction Arms at Side - 1 x daily - 2 x weekly - 2 sets - 10 reps - Prone W Scapular Retraction - 1 x daily - 2 x weekly - 2 sets - 10 reps - Bug - 1 x daily - 2 x weekly - 2 sets - 10 reps - Supine Chest Flys - 1 x daily - 2 x weekly - 2 sets - 10 reps - Supine Hamstring Moldovan Ball Curls/Dynamic Mobilization - 1 x daily - 2 x weekly - 2 sets - 10 reps - Bridge with Heels on Moldovan Ball - 1 x daily - 2 x weekly - 2 sets - 10 reps Assessment Patient responding well to video game system for improving weight shift, body awareness, and left/right differentiation. No increase in pain during session. Patient completed Mod CTSIB assessment showing decreased use of body proprioception cues for balance and hypersensitivity to despite good processing/integration of vestibular cues. Based on response to LUE tactile stim to left tricep during weight shifting exercises, while not consciously aware of the stimulation, patient demonstrated decreased confidence shifting to left side while stimulation was present. Whether this signifies avoidance of stimulation unconsciously or a shifting to use of vestibular cues (patient also shifted to right of center on Mod CTSIB in conditions that up regulate use of vestibular system) is unknown. Patient demonstrating hypersensitivity to visual and vestibularstimulation along with tactile stimulation to left side body that severely impacts her function at household and community levels. Poor use of proprioceptive cues in all conditions including balance assessment. PT recommending continued skilled physical therapy at this time to improve her mobility,daily functional activities, and participation in work and life roles of meaning. PT Assessment Prognosis: Good Goals Short Term Goals (4 weeks) Patient will be educated on and given the workbook for CRPS. Goal Met - 8/2 2. Patient will be educated on and given the workbook for FMD. Goal Met 3. Patient will complete the Active Stand Test. Goal Met - 8/9 4. Patient will complete the Patient Specific Functional Scale. Goal Met - 8/2 5. Patient will complete the sensory grid examination of her cervical spine. Goal Met - 6 Rigger Helper Goals (12 weeks) Pt will be able to improve tolerance to Forest Concussion Bike Test by 4 stages to demonstrate improved activity tolerance Progressing Pt will demonstrate ability to perform cervical 9 grid sensory testing correctness at 8/10 Progressing Pt will be able to tolerate 20min of supine CV exercise with HR at target zone and with dizziness increasing less than 3 points. Progressing 4. Pt will report decreased dizziness and demonstrate decreased impact of dizziness on function through improved DHI score by 10 points or greater. Progressing 5. Pt will be able to complete VOMS testing in one appointment with dizziness and left side pain increasing by no more than 3 points. Progressing Plan Plan Continue With Current Plan of Care: Continue With Current Plan of Care Written by Isaura Rae on 08/13/24 at 8:58 AM documented in this encounter Plan of Treatment Upcoming Encounters Date Type Department Care Team (Late st Contact Info) Description 10/15/2024 9:00 AM EDT Appointment [facility] [address] [place] [address] Isaura Rae 10/22/2024 9:00 AM EDT Appointment [facility] [address] [place] [address] Isaura Rae 10/22/2024 9:45 AM EDT Appointment [facility] [address] [place] [address] Agueda Mccray 11/05/2024 9:00 AM EDT Appointment [facility] [address] [place] [address] Isaura Rae 11/05/2024 9:45 AM EDT Appointment [facility] [address] [place] [address] Agueda Mccray 11/12/2024 9:00 AM EDT Appointment [facility] [address] [place] [address] Isaura Rae 11/12/2024 9:45 AM EDT Appointment [facility] [address] [place] [address] Agueda Mccray A 11/19/2024 9:00 AM EDT Appointment [facility] [address] [place] [address] Isaura Rae 11/19/2024 9:45 AM EDT Appointment [facility] [address] [place] [address] Agueda Mccray A 11/26/2024 9:00 AM EDT Appointment [facility] [address] [place] [address] Isaura Rae 11/26/2024 9:45 AM EDT Appointment [facility] [address] [place] [address] Agueda Mccray A 12/03/2024 9:00 AM EDT Appointment [facility] [address] [place] [address] Isaura Rae 12/03/2024 9:45 AM EDT Appointment [facility] [address] [place] [address] Agueda Mccray A 12/10/2024 9:00 AM EDT Appointment [facility] [address] [place] [address] Isaura Rae 12/10/2024 9:45 AM EDT Appointment [facility] [address] [place] [address] Agueda Mccray A 12/17/2024 9:00 AM EDT Appointment [facility] [address] [place] [address] Isaura Rae 12/17/2024 9:45 AM EDT Appointment [facility] [address] [place] [address] Agueda Mccray A 12/24/2024 9:00 AM EDT Appointment [facility] [address] [place] [address] Isaura Rae 12/24/2024 9:45 AM EDT Appointment [facility] [address] [place] [address] Agueda Mccray A 12/31/2024 9:00 AM EDT Appointment [facility] [address] [place] [address] Isaura Rae 12/31/2024 9:45 AM EDT Appointment [facility] [address] [place] [address] Agueda Mccray A 01/07/2025 9:00 AM EDT Appointment [facility] [address] [place] [address] Isaura Rae 01/07/2025 9:45 AM EDT Appointment [facility] [address] [place] [address] Agueda Mccray 01/14/2025 9:00 AM EDT Appointment [facility] [address] [place] [address] Isaura Rae 01/14/2025 9:45 AM EDT Appointment [facility] [address] [place] [address] Agueda Mccray 01/21/2025 9:00 AM EDT Appointment [facility] [address] [place] [address] Isaura Rae 01/21/2025 9:45 AM EDT Appointment [facility] [address] [place] [address] Agueda Mccray documented as of this encounter Visit Diagnoses Diagnosis Complex regional pain syndrome type 1 of left upper extremity- Primary Complex regional pain syndrome type 1 of left upper extremity- Primary Complex regional pain syndrome type 1 of left upper extremity- Primary documented in this encounter Additional Health Concerns Assessment Noted Time A fall risk assessment has been complete d for the patient 06/04/2024 1:08 PM EST A Body Mass Index follow-up plan has been documented for the patient 06/04/2024 3:17 PM EST documented as of this encounter Care Teams Spool Salvager Relationship Specialty Start Date End Date Gabe Cohen MD [address] [place] [address] #1 [address]1 RAZ Ann [address] PCP - General 09/08/20 documented as of this encounter
--- OUTSIDE RECORDS SUMMARY | 2024-08-13 08:54 | XMS_ITS | Encounter Summary ---
Author Organization [facility] Address [address] [place] [address] Care Team Providers Care Electrician Control Equipment Name Role Phone Gabe Cohen MD Primary Care Provider [phone] Reason for Visit * Consultation (Routine) - Authorized Specialty Diagnoses / Procedures Referred By Tanika lao Referred To Contact Occupational Therapy Diagnoses Complex regional pain syndrome I Left arm weakness Herb Stauffer MD [address] [place] [address] Phone: tel: fax: [facility] [address] [place] [address] Phone: tel: fax: Referral ID Status Reason Start Date Expiration Date Visits Requested Visits Authorized [id number] Authorized Consult and Treat 11/11/2023 12/26/2024 1 44 Encounter Details Date Type Department Care Team (Latest Contact Info) Description 08/13/2024 8:54 AM EDT - 08/13/2024 11:59 PM EDT Hospital Encounter [facility] [address] [place] [address] Agueda Mccray Complex regional pain syndrome type 1 of [...] encounter Miscellaneous Notes * Progress Notes - Agueda Mccray - 08/13/2024 9:45 AM EDT Occupational Therapy OT Treatment Note DATE: 08/13/24 NAME: Radha Gabriel Date of : 1970 Therapist: Agueda Mccray General Chief Complaint: CRPS, L arm weakness Time In: 0945 Time Out: 1030 Chart Reviewed: Yes Family/Caregiver Present: No Patient's Preferred Language for Communication: Macedonian Electrician Control Equipment: No Subjective Pt reports she has been engaging in hand exercises incorporating the mirror at times. She also reports no longer having flu-like symptoms which was side effect from new medication and other symptoms has subsided some, but there are still some side effects. Pain 12/05 pain, L jaw, L arm, L shoulder, L leg Treatment/Education (45 minutes neuromuscular reeducation) To promote self-awareness and emotional regulation, which can impact their pain perception and symptom management in the context of FND and CRPS. PT: happy majority of time when playing games, but also reports instance where she felt like she was close to panic attack, also reporting mental fatigue. Then after OT: drained, calm GMI recognize fransisco - Graded motor imagery task R/L discrimination: Left 45% with reaction time of 3.26 seconds, Right 80%, with a reaction time of 2.23 seconds, with 40 images. - pt reports no change in symptoms 3. Full muscle relaxation completed with eyes open following video -reports decreased pain to 7/10 after completion. - soundscapes also used in background to drown out clinic noise. 4. GMI recognize fransisco - completed after 20 minute full muscle relaxation sequence Graded motor imagery task R/L discrimination: Left 50% with reaction time of 3.83 seconds, Right 75%, with a reaction time of 2.78 seconds, with 40 images. - pt reports no change in symptoms - pt didreturn to 8/10 Assessment Pt responding well to progressive muscle relaxation with reports of decreased pain from 8 to 7, pt did also demonstrate improved score for L discrimination however pain did return to 8/10 with task completion. Pt responding well to intervention this date, however due to significant impairments and lack of knowledge/understanding regarding medical condition, pt will benefit from further treatment. Goals Patient/Family Goals Goal Comments Goal #1 To regain use of arm, decrease pain, improve quality of life Goal #2 Goal #3 Short Term Goal Goal Status Date Met Comments Goal #1 Pt will accept education regarding home program, including desensitization strategies, uponweek 3. Goal Met Goal #2 Pt will participate in further testing such as ROM and sensation testing, as tolerated. Progressing 12/25 unable to tolerate majority of assessments at this time. 04/02 continue to be unable to tolerate d/t CRPS Goal #3 Pt will accept education and recommendations regarding adaptive techniques and adaptive equipment as needed. Progressing 04/02 pt continues to accept recommendations based on pt's physical limitations as well as severity of pain and overall decreased activity tolerance. Goal #4 Initial Goal #5 Initial Goal #6 Initial Custodial Goal Goal Status Date Met Comments Goal #1 Pt will be independent with progressive home exercise program upon discharge. Progressing Goal #2 Pt will report improved ability to navigate stressful or triggering situations, implementing coping strategies as needed with reports of no increase in symptoms, upon discharge. Progressing 02/26 pt reports improvements but continues to have significant issues Goal #3 Pt will be independent with sensory modulation program and completing consistently, upon discharge. Progressing 02/26 pt completing current and new portions that have been added to program with consistency, continue to add and adjust based on pt's needs 1/3 continue to add and adjust program based on pt's needs. Goal #4 Pt will verbalize improved ability to engage LUE in IADL tasks such as simple meal prep, with minimal symptoms changes, upon discharge. Progressing 12/ pt continues to be unable to tolerate majority of IADLs without some level of assistance 1/3 unable to engage in LUE at this time. Goal #5 Pt will verbalize decreased overall pain to less than 5/10, while engaging in preferred activity such as painting, upon discharge. Progressing 12/ pt's pain continue to impact ability to engage in preferred occupations 1/3 pain continues to be consistently in 7-8/10 pain Goal #6 Pt will be independent with lateral graded motor imagery home program, completing consistently using 40 images with a 5 second delay 5-6x a day, to prepare patient for functional use of LUE, upon discharge. Progressing 12/ continue to progress using GMI fransisco per OT instruction 1/3 Left 55%, Right 85% with 40 images, and a reaction time of approximately 3 seconds for both limbs Goal #7 The patient will implement and maintain a consistent sleep hygiene routine, including strategies such as establishing a regular sleep schedule, creating a quiet and calming sleep environment,and limiting stimulating activities before bedtime, in order to improve overall sleep quality and du ration, as measured by an increase in self-reported restful sleep and a reduction in sleep disturbances. Progressing 3/ pt continues to trial various techniques recommended by OT with fair to poor success, continue to address in therapy Goal #8 Initial ADL Goals IND SAAVEDRA Sup/Touch A Part/Mod A Sub/Max A DEP Comment Eating [] [] [] [] [] [] Oral Hygiene [] [] [] [] [] [] Toileting Hygiene [] [] [] [] [] [] ToiletTransfer [] [] [] [] [] [] UBD [x] [] [] [] [] [] LBD [x] [] [] [] [] [] Shower/Bathe self [x] [] [] [] [] [] Wash/dry hands [] [] [] [] [] [] Wash/dry face [] [] [] [] [] [] Comb/brush hair [] [] [] [] [] [] Tub/Shower transfer [] [] [] [] [] [] Plan Continue with plan of care Written by Agueda Mccray on 08/13/24 at 9:50 AM documented in this encounter Plan of Treatment Upcoming Encounters Date Type Department Care Team (Late st Contact Info) Description 10/15/2024 9:00 AM EDT Appointment [facility] [address] [place] [address] Isaura Rae 10/22/2024 9:00 AM EDT Appointment [facility] [address] [place] [address] Isaura aRe 10/22/2024 9:45 AM EDT Appointment [facility] [address] [place] [address] Agueda Mccray 11/05/2024 9:00 AM EDT Appointment [facility] [address] [place] [address] Isaura Rae 11/05/2024 9:45 AM EDT Appointment [facility] [address] [place] [address] Agueda Mccray 11/12/2024 9:00 AM EDT Appointment [facility] [address] [place] [address] Isaura Rae 11/12/2024 9:45 AM EDT Appointment [facility] [address] [place] [address] Agueda Mccray 11/19/2024 9:00 AM EDT Appointment [facility] [address] [place] [address] Isaura Rae 11/19/2024 9:45 AM EDT Appointment [facility] [address] [place] [address] Agueda Mccray 11/26/2024 9:00 AM EDT Appointment [facility] [address] [place] [address] Isaura Rae 11/26/2024 9:45 AM EDT Appointment [facility] [address] [place] [address] Agueda Mccray A 12/03/2024 9:00 AM EDT Appointment [facility] [address] [place] [address] Isaura Rae 12/03/2024 9:45 AM EDT Appointment [facility] [address] [place] [address] Agueda Mccray A 12/10/2024 9:00 AM EDT Appointment [facility] [address] [place] [address] Isaura Rae 12/10/2024 9:45 AM EDT Appointment [facility] [address] [place] [address] Agueda Mcrcay A 12/17/2024 9:00 AM EDT Appointment [facility] [address] [place] [address] Isaura Rae 12/17/2024 9:45 AM EDT Appointment [facility] [address] [place] [address] Agueda Mccray 12/24/2024 9:00 AM EDT Appointment [facility] [address] [place] [address] Isaura Rae 12/24/2024 9:45 AM EDT Appointment [facility] [address] [place] [address] Agueda Mccray A 12/31/2024 9:00 AM EDT Appointment [facility] [address] [place] [address] Isaura Rae 12/31/2024 9:45 AM EDT Appointment [facility] [address] [place] [address] Agueda Mccray 01/07/2025 9:00 AM EDT Appointment [facility] [address] [place] [address] Isaura Rae 01/07/2025 9:45 AM EDT Appointment [facility] [address] [place] [address] Agueda Mccray 01/14/2025 9:00 AM EDT Appointment [facility] [address] [place] [address] Isaura Rae 01/14/2025 9:45 AM EDT Appointment [facility] [address] [place] [address] Agueda Mccray 01/21/2025 9:00 AM EDT Appointment [facility] [address] [place] [address] Isaura Rae 01/21/2025 9:45 AM EDT Appointment [facility] [address] [place] [address] Agueda Mccray documented as of this encounter [...] documented as of this encounter Care Teams Electrician Control Equipment Relationship Specialty Start Date End Date Gabe Cohen MD [address] [place] [address] [address] [place] [address] PCP - General 09/08/20 documented as of this encounter
--- OUTSIDE RECORDS SUMMARY | 2024-08-20 08:59 | XMS_ITS | Encounter Summary ---
Author Organization [facility] Address [address] [place] [address] Care Team Providers Care Mold Washer Name Role Phone Gabe Cohen MD Primary Care Provider [phone] Reason for Visit * Consultation (Routine) - Authorized Specialty Diagnoses / Procedures Referred By Tanika lao Referred To Contact Physical Therapy Diagnoses Complex regional pain syndrome I Left arm weakness Herb Stauffer MD [address] [place] [address] Phone: tel: fax: [facility] [address] [place] [address] Phone: tel: fax: Referral ID Status Reason Start Date Expiration Date Visits Requested Visits Authorized [id number] Authorized Consult and Treat 11/11/2023 12/26/2024 1 39 Encounter Details Date Type Department Care Team (Latest Contact Info) Description 08/20/2024 8:59 AM EDT - 08/20/2024 11:59 PM EDT Hospital Encounter [facility] [address] [place] [address] Isaura Rae Complex regional pain [...] * Progress Notes - Isaura Rae - 08/20/2024 9:00 AM EDT Physical Therapy PT Daily Treatment Note DATE: 08/20/24 NAME: Radha Gabriel Date of : 1970 Therapist: Isaura Rae Subjective Missed a day and a half on my medicine, noticed that I felt foggier and my pain was worse, I got a refill and I started it back today. I think maybe it's helping more than I realized. Treatment/Objective Assessment: Activity Reps/Timing Comments Smooth Pursuits [...] shifting: Soccer ball heading Ball tilting Ski Jump Ski Slalom Completed tasks as written with emphasis on left and right weight shifting with trunk muscle activation. PT providing SBA and support with cues for spatial orientation. Virtual Reality Head Set Games: Lean Into the Music [place]-critter find [place]-critter find Robot Find with binaural sound Completed as written, progressed from sitting supported in chair, tostanding, to sitting on wobble board while playing. Patient wearing headset with far less avoidanceof tactile and pressure stimulation to left side of face and head today. Much improved left head rot ation and side bending without pain this date. Noted increased difficulty with locating sounds in left ear/left side. Education Today's Treatment Needs Communication Device: No Patient Understanding of Basic Information: Understands, able to self manage Barriers to Learning: None Readiness to Learn: Accepting Did Patient/Family Demonstrate Learning: Pt/Family verbalizes understanding, Pt/Family demonstratesunderstanding Who Was Educated: Patient, Family Rehab Potential: Good Education Given: Verbal, Demonstrated [place] ADaPT protocol Physical Therapy Home Exercise Program [...] start See HEP sheet given Access Code: [email or web address] URL: [email or web address] Date: 07/17/2023 Prepared by: Shayna Flores Program [...] sets - 10 reps - Supine Hamstring Nigerian Ball Curls/Dynamic Mobilization - 1 x daily - 2 x weekly - 2 sets - 10 reps - Bridge with Heels on Nigerian Ball - 1 x daily - 2 [...] of her cervical spine. Goal Met - 9/6 Intermediate Goals (12 weeks) Pt will be able to improve tolerance to [place] Concussion Bike Test by 4 stages to [...] of Care Written by Isaura Rae on 08/20/24 at 9:06 AM documented in this encounter Plan of Treatment Upcoming Encounters Date Type Department Care Team (Late st Contact Info) Description 10/15/2024 9:00 AM EDT Appointment [facility] [address] [place] [address] Isaura Rae 10/22/2024 9:00 AM EDT Appointment [facility] [address] [place] [address] Isaura Rae 10/22/2024 9:45 AM EDT Appointment [facility] [address] [place] [address] Agueda Mccray 11/05/2024 9:00 AM EDT Appointment [facility] [address] [place] [address] Isaura Rae 11/05/2024 9:45 AM EDT Appointment [facility] [address] [place] [address] Agueda Mccray 11/12/2024 9:00 AM EDT Appointment [facility] [address] [place] [address] Isaura Rae 11/12/2024 9:45 AM EDT Appointment [facility] [address] [place] [address] Agueda Mccray A 11/19/2024 9:00 AM EDT Appointment [facility] [address] [place] [address] Isaura Rae 11/19/2024 9:45 AM EDT Appointment [facility] [address] [place] [address] Agueda Mccray A 11/26/2024 9:00 AM EDT Appointment [facility] [address] [place] [address] Isaura Rae 11/26/2024 9:45 AM EDT Appointment [facility] [address] [place] [address] Agueda Mccray A 12/03/2024 9:00 AM EDT Appointment [facility] [address] [place] [address] Isaura Rae 12/03/2024 9:45 AM EDT Appointment [facility] [address] [place] [address] Agueda Mccray A 12/10/2024 9:00 AM EDT Appointment [facility] [address] [place] [address] Isaura Rae 12/10/2024 9:45 AM EDT Appointment [facility] [address] [place] [address] Agueda Mccray A 12/17/2024 9:00 AM EDT Appointment [facility] [address] [place] [address] Isaura Rae 12/17/2024 9:45 AM EDT Appointment [facility] [address] [place] [address] Agueda Mccray 12/24/2024 9:00 AM EDT Appointment [facility] [address] [place] [address] Isaura Rae 12/24/2024 9:45 AM EDT Appointment [facility] [address] [place] [address] Agueda Mccray A 12/31/2024 9:00 AM EDT Appointment [facility] [address] [place] [address] Isaura Rae 12/31/2024 9:45 AM EDT Appointment [facility] [address] [place] [address] Agueda Mccray 01/07/2025 9:00 AM EDT Appointment [facility] [address] [place] [address] Isaura Rae 01/07/2025 9:45 AM EDT Appointment [facility] [address] [place] [address] Agueda Mccray 01/14/2025 9:00 AM EDT Appointment [facility] [address] [place] [address] Isaura Rae 01/14/2025 9:45 AM EDT Appointment [facility] [address] [place] [address] Agueda Mccray 01/21/2025 9:00 AM EDT Appointment [facility] [address] [place] [address] Isaura Rae 01/21/2025 9:45 AM EDT Appointment [facility] [address] [place] [address] Agueda Mccray documented as of this encounter [...] documented as of this encounter Care Teams Mold Washer Relationship Specialty Start Date End Date Gabe Cohen MD [address] [place] [address] [address]1 [address]1 [place] [address] PCP - General 09/08/20 documented as of this encounter
--- OUTSIDE RECORDS SUMMARY | 2024-08-27 08:59 | XMS_ITS | Encounter Summary ---
Author Organization [facility] Address [address] [place] [address] Care Team Providers Care Motorcycle Fabricator Name Role Phone Gabe Cohen MD Primary Care Provider [phone] Reason for Visit * Consultation (Routine) - Authorized Specialty Diagnoses / Procedures Referred By Tanika lao Referred To Contact Physical Therapy Diagnoses Complex regional pain syndrome I Left arm weakness Herb Stauffer MD [address] [place] [address] Phone: tel: fax: [facility] [address] [place] [address] Phone: tel: fax: Referral ID Status Reason Start Date Expiration Date Visits Requested Visits Authorized [id number] Authorized Consult and Treat 11/11/2023 12/26/2024 1 39 Encounter Details Date Type Department Care Team (Latest Contact Info) Description 08/27/2024 8:59 AM EDT - 08/27/2024 11:59 PM EDT Hospital Encounter [facility] [address] [place] [address] Isaura Rae Complex regional pain [...] * Progress Notes - Isaura Rae - 08/27/2024 9:00 AM EDT Physical Therapy PT Daily Treatment Note DATE: 08/27/24 NAME: Radha Gabriel Date of : 1970 Therapist: Isaura Rae Subjective Patient reporting she is still adjusting to her meds but notices that mostly she is aware that is just feels everything more (both for good and bad) and has a lot of energy. Pain can get very high attimes, describes it as full body aches like when she is sick but this goes away with time and rest.Notices that she is able to do more and feels better when she is distracted. Treatment/Objective Assessment: Activity Reps/Timing Comments Smooth Pursuits [...] Head Set Games: Lean Into the Music [employer] [place]-critter find [place]-critter find Robot Find with binaural sound Completed as written while riding a bike at self selected pace on level 1 today. Completed total of 30 minutes of pedaling with intermittent breaks lasting 1-2 minutes at most. Patient wearing headset with far less avoidance of tactile and pressure stimulation to leftside of face and head today. Much improved [...] Rehab Potential: Good Education Given: Verbal, Demonstrated [place] ADaPT protocol Physical Therapy Home Exercise Program [...] start See HEP sheet given Access Code: [email or web address] URL: [email or web address] Date: 07/17/2023 Prepared by: Shayna Flores Program [...] sets - 10 reps - Supine Hamstring Turkish Ball Curls/Dynamic Mobilization - 1 x daily - 2 x weekly - 2 sets - 10 reps - Bridge with Heels on Turkish Ball - 1 x daily - 2 x weekly - 2 sets - 10 reps Assessment Patient responding well to video game system for improving weight shift, body awareness, and left/right differentiation. No increase in pain during session and noted some active movement in left arm today to point toward spot on her shirt, patient unaware she was using her left arm. Re-assessment due next session. Patient completed Mod CTSIB assessment showing [...] her cervical spine. Goal Met - 9/6 Finishing Area Operator Goals (12 weeks) Pt will be able to improve tolerance to [place] Bike Test by 4 stages to demonstrate [...] of Care Written by Isaura Rae on 08/27/24 at 9:14 AM documented in this encounter Plan of Treatment Upcoming Encounters Date Type Department Care Team (Late st Contact Info) Description 10/15/2024 9:00 AM EDT Appointment [facility] [address] [place] [address] Isaura Rae 10/22/2024 9:00 AM EDT Appointment [facility] [address] [place] [address] Isaura Rae 10/22/2024 9:45 AM EDT Appointment [facility] [address] [place] [address] Agueda Mccray 11/05/2024 9:00 AM EDT Appointment [facility] [address] [place] [address] Isaura Rae 11/05/2024 9:45 AM EDT Appointment [facility] [address] [place] [address] Agueda Mccray A 11/12/2024 9:00 AM EDT Appointment [facility] [address] [place] [address] Isaura Rae 11/12/2024 9:45 AM EDT Appointment [facility] [address] [place] [address] Agueda Mccray A 11/19/2024 9:00 AM EDT Appointment [facility] [address] [place] [address] Isaura Rae 11/19/2024 9:45 AM EDT Appointment [facility] [address] [place] [address] Agueda Mccray A 11/26/2024 9:00 AM EDT Appointment [facility] [address] [place] [address] Isaura Rae 11/26/2024 9:45 AM EDT Appointment [facility] [address] [place] [address] Agueda Mccray A 12/03/2024 9:00 AM EDT Appointment [facility] [address] [place] [address] Isaura Rae 12/03/2024 9:45 AM EDT Appointment [facility] [address] [place] [address] Agueda Mccray A 12/10/2024 9:00 AM EDT Appointment [facility] [address] [place] [address] Isaura Rae 12/10/2024 9:45 AM EDT Appointment [facility] [address] [place] [address] Agueda Mccray A 12/17/2024 9:00 AM EDT Appointment [facility] [address] [place] [address] Isaura Rae 12/17/2024 9:45 AM EDT Appointment [facility] [address] [place] [address] Agueda Mccray A 12/24/2024 9:00 AM EDT Appointment [facility] [address] [place] [address] Isaura Rae 12/24/2024 9:45 AM EDT Appointment [facility] [address] [place] [address] gAueda Mccray A 12/31/2024 9:00 AM EDT Appointment [facility] [address] [place] [address] Isaura Rae 12/31/2024 9:45 AM EDT Appointment [facility] [address] [place] [address] Agueda Mccray A 01/07/2025 9:00 AM EDT Appointment [facility] [address] [place] [address] Isaura Rae 01/07/2025 9:45 AM EDT Appointment [facility] [address] [place] [address] Agueda Mccray A 01/14/2025 9:00 AM EDT Appointment [facility] [address] [place] [address] Isaura Rae 01/14/2025 9:45 AM EDT Appointment [facility] [address] [place] [address] Agueda Mccray A 01/21/2025 9:00 AM EDT Appointment [facility] [address] [place] [address] Isaura Rae 01/21/2025 9:45 AM EDT Appointment [facility] [address] [place] [address] Agueda Mccray documented as of this encounter [...] documented as of this encounter Care Teams Motorcycle Fabricator Relationship Specialty Start Date End Date Gabe Cohen MD [address] [place] [address] [address]1 [address] [place] [address] PCP - General 09/08/20 documented as of this encounter
--- OUTSIDE RECORDS SUMMARY | 2024-08-27 08:59 | XMS_ITS | Encounter Summary ---
Author Organization [facility] Address [address] [place] [address] Care Team Providers Care Block Inspector Name Role Phone Gabe Cohen MD Primary Care Provider [phone] Reason for Visit * Consultation (Routine) - Authorized Specialty Diagnoses / Procedures Referred By Tanika lao Referred To Contact Occupational Therapy Diagnoses Complex regional pain syndrome I Left arm weakness Herb Stauffer MD [address] [place] [address] Phone: tel: fax: [facility] [address] [place] [address] Phone: tel: fax: Referral ID Status Reason Start Date Expiration Date Visits Requested Visits Authorized [id number] Authorized Consult and Treat 11/11/2023 12/26/2024 1 44 Encounter Details Date Type Department Care Team (Latest Contact Info) Description 08/27/2024 8:59 AM EDT - 08/27/2024 11:59 PM EDT Hospital Encounter [facility] [address] [place] [address] Agueda Mccray Complex regional pain [...] * Progress Notes - Agueda Mccray - 08/27/2024 9:45 AM EDT Occupational Therapy OT Treatment Note DATE: 08/27/24 NAME: Radha Gabriel Date of : 1970 Therapist: Agueda Mccray General Chief Complaint: CRPS, L arm weakness Time In: 0945 Time Out: 1030 Chart Reviewed: Yes Family/Caregiver Present: No Patient's Preferred Language for Communication: [place] Dub Room Engineer: No Subjective Pt stated she has had some bad days as of late. To start trial of Accelerated Resolution Therapy soon with her therapist. Pt reported medication continues to be monitored and slight adjustments have been made and PRN medication has been added for anxiety, but pt reports she has yet to trial. Pain 8/10 pain, L jaw, L arm, L shoulder, L leg Treatment/Education (60 minutes neuromuscular reeducation) Attempted cooling visualization but pt reported worsening of symptoms, task discontinued. Briefly discussed continued home GMI program and reported on the following: At home mirroring - If I look into the mirror sometimes will become dizzy and will take rest breaks. Coloring, and cards - will space these tasks out and Reports completing 3 days a week 2x a day- but spreads out throughout day 3. Mirror therapy was used during the treatment session to address symptoms of CRPS. The patient initially reported after PT session, increased tingling, burning, and itching in the left arm. A mirror was used while the occupational therapist scratched the right arm, followed by application of a cool pack while continuing mirror feedback. The patient reported that the tingling subsided and the left arm was feeling a little better. A gentle hand massage was then performed, after which the patient noted a decrease in burning sensation and an overall reduction in pain from 8-9/10 to 7/10. Assessment Pt responding well to mirror therapy tx this date to decrease pain/discomfort. Homework: pay more attention to R hand and be mindful of keeping her hand more relaxed to ensure she is not in flexed position. Pt responding well to intervention this date, [...] Initial Goal #5 Initial Goal #6 Initial Wire Puller Goal Goal Status Date Met Comments Goal [...] functional use of LUE, upon discharge. Progressing / continue to progress using GMI fransisco per OT instruction / Left 55%, Right 85% with 40 images, [...] of care Written by Agueda Mccray on 08/27/24 at 9:57 AM documented in this encounter Plan of Treatment Upcoming Encounters Date Type Department Care Team (Late st Contact Info) Description 10/15/2024 9:00 AM EDT Appointment [facility] [address] [place] [address] Isaura Rae 10/22/2024 9:00 AM EDT Appointment [facility] [address] [place] [address] Isaura Rae 10/22/2024 9:45 AM EDT Appointment [facility] [address] [place] [address] Agueda Mccray 11/05/2024 9:00 AM EDT Appointment [facility] [address] [place] [address] Isaura Rae 11/05/2024 9:45 AM EDT Appointment [facility] [address] [place] [address] Agueda Mccray 11/12/2024 9:00 AM EDT Appointment [facility] [address] [place] [address] Isaura Rae 11/12/2024 9:45 AM EDT Appointment [facility] [address] [place] [address] Agueda Mccray 11/19/2024 9:00 AM EDT Appointment [facility] [address] [place] [address] Isaura Rae 11/19/2024 9:45 AM EDT Appointment [facility] [address] [place] [address] Agueda Mccray 11/26/2024 9:00 AM EDT Appointment [facility] [address] [place] [address] Isaura Rae 11/26/2024 9:45 AM EDT Appointment [facility] [address] [place] [address] Agueda Mccray A 12/03/2024 9:00 AM EDT Appointment [facility] [address] [place] [address] Isaura Rae 12/03/2024 9:45 AM EDT Appointment [facility] [address] [place] [address] Agueda Mccray A 12/10/2024 9:00 AM EDT Appointment [facility] [address] [place] [address] Isaura Rae 12/10/2024 9:45 AM EDT Appointment [facility] [address] [place] [address] Agueda Mccray 12/17/2024 9:00 AM EDT Appointment [facility] [address] [place] [address] Isaura Rae 12/17/2024 9:45 AM EDT Appointment [facility] [address] [place] [address] Agueda Mccray 12/24/2024 9:00 AM EDT Appointment [facility] [address] [place] [address] Isaura Rae 12/24/2024 9:45 AM EDT Appointment [facility] [address] [place] [address] Agueda Mccray A 12/31/2024 9:00 AM EDT Appointment [facility] [address] [place] [address] Isaura Rae 12/31/2024 9:45 AM EDT Appointment [facility] [address] [place] [address] Agueda Mccray 01/07/2025 9:00 AM EDT Appointment [facility] [address] [place] [address] Isaura Rae 01/07/2025 9:45 AM EDT Appointment [facility] [address] [place] [address] Agueda Mccray 01/14/2025 9:00 AM EDT Appointment [facility] [address] [place] [address] Isaura Rae 01/14/2025 9:45 AM EDT Appointment [facility] [address] [place] [address] Agueda Mccray 01/21/2025 9:00 AM EDT Appointment [facility] [address] [place] [address] Isaura Rae 01/21/2025 9:45 AM EDT Appointment [facility] [address] [place] [address] Agueda Mccray documented as of this encounter [...] documented as of this encounter Care Teams Block Inspector Relationship Specialty Start Date End Date Gabe Cohen MD [address] [place] [address] #1 #1 RAZ Ann [id number] PCP - General 09/08/20 documented as of this encounter
--- OUTSIDE RECORDS SUMMARY | 2024-09-03 09:00 | XMS_ITS | Encounter Summary ---
Author Organization [facility] Address [address] [place] [address] Care Team Providers Care Activity Aide Name Role Phone Gabe Cohen MD Primary Care Provider [phone] Reason for Visit * Consultation (Routine) - Authorized Specialty Diagnoses / Procedures Referred By Tanika lao Referred To Contact Physical Therapy Diagnoses Complex regional pain syndrome I Left arm weakness Herb Stauffer MD [address] [place] [address] Phone: tel: fax: [facility] [address] [place] [address] Phone: tel: fax: Referral ID Status Reason Start Date Expiration Date Visits Requested Visits Authorized [id number] Authorized Consult and Treat 11/11/2023 12/26/2024 1 39 Encounter Details Date Type Department Care Team (Latest Contact Info) Description 09/03/2024 9:00 AM EDT - 09/03/2024 9:02 AM EDT Hospital Encounter [facility] [address] [place] [address] Isaura Rae Complex regional pain [...] * Progress Notes - Isaura Rae - 09/03/2024 9:00 AM EDT Physical Therapy PT Daily Treatment Note DATE: 09/03/24 NAME: Radha Gabriel Date of : 1970 Therapist: Isaura Rae Subjective Trying my new anxiety medication that is for as needed on therapy days, it makes me feel really loopy. Had some nightmares last night, my pain is up more today. Treatment/Objective Assessment: Vestibular/Ocular-Motor Screening (VOMS) Vestibular/Ocular Motor Test Not Tested Headache 0-10 Dizziness 0-10 Nausea 0-10 Fogginess 0-10 Total Comments Baseline Symptoms N/A 0 5 2 7 14 Smooth Pursuits 0 5 2 7 14 Saccades-Horizontal 0 6 2 7 15 Saccades-Vertical 0 6 2 7 15 Convergence (near point) 0 6 1 7 14 Trial 1: 27.5 cm Trial 2: 26.8 cm Trial 3: 27.2 cm VOR-Horizontal 0 7 2 7 16 VOR-Vertical 0 6 2 7 15 Visual Motion Sensitivity Test 0 6 2 7 15 Total Number of Symptom CATEGORIES ABOVE BASELINE (max possible 7): 5/7 SYMPTOM SEVERITY SCORE (max possible 280): 118/280 Activity Reps/Timing Comments Smooth Pursuits in horizontal [...] weight shifting: Soccer ball heading Ball tilting Balance Bubble Completed tasks as written with emphasis on left and right weight shifting with trunk muscle activation. PT providing SBA and support with cues for spatial orientation. Virtual Reality Head Set Games: [employer] Beach-critter find [place]andy[place]-critter find Robot Find with binaural sound Patient wearing headset with far less avoidance of tactile and pressure stimulation to left side [...] Rehab Potential: Good Education Given: Verbal, Demonstrated [place] ADaPT protocol Physical Therapy Home Exercise Program [...] start See HEP sheet given Access Code: [email or web address] URL: [email or web address] Date: 07/17/2023 Prepared by: Shayna Flores Program [...] 2 sets - 10 reps - Supine June with Resistance Band - 1 x daily [...] sets - 10 reps - Supine Hamstring Pakistani Ball Curls/Dynamic Mobilization - 1 x daily - 2 x weekly - 2 sets - 10 reps - Bridge with Heels on Pakistani Ball - 1 x daily - 2 x weekly - 2 sets - 10 reps Assessment Patient responding well to video game system for improving weight shift, body awareness, and left/right differentiation. No increase in pain during session and noted some active movement in left arm last week to point toward spot on her shirt, patient unaware she was using her left arm. Patient metVOMS goal this date showing improvement in tolerance to visual movement. Patient completed Mod CTSIB assessment showing decreased [...] the Active Stand Test. Goal Met - 12/04 4. Patient will complete the Patient Specific Functional Scale. Goal Met - 8/ 5. Patient will complete the sensory grid examination of her cervical spine. Goal Met - 9/6 Longterm Goals (12 weeks) Pt will be able to improve tolerance to Rich Tiragiu Bike Test by 4 stages to demonstrate [...] increasing by no more than 3 points. MET 09/03/2024 Plan Plan Continue With Current Plan of Care: Continue With Current Plan of Care Written by Isaura Rae on 09/03/24 at 9:16 AM documented in this encounter Plan of Treatment Upcoming Encounters Date Type Department Care Team (Late st Contact Info) Description 10/15/2024 9:00 AM EDT Appointment [facility] [address] [place] [address] Isaura Rae 10/22/2024 9:00 AM EDT Appointment [facility] [address] [place] [address] Isaura Rae 10/22/2024 9:45 AM EDT Appointment [facility] [address] [place] [address] Agueda Mccray A 11/05/2024 9:00 AM EDT Appointment [facility] [address] [place] [address] Isaura Rae 11/05/2024 9:45 AM EDT Appointment [facility] [address] [place] [address] Agueda Mccray A 11/12/2024 9:00 AM EDT Appointment [facility] [address] [place] [address] Isaura Rae 11/12/2024 9:45 AM EDT Appointment [facility] [address] [place] [address] Agueda Mccray A 11/19/2024 9:00 AM EDT Appointment [facility] [address] [place] [address] Isaura Rae 11/19/2024 9:45 AM EDT Appointment [facility] [address] [place] [address] Agueda Mccray A 11/26/2024 9:00 AM EDT Appointment [facility] [address] [place] [address] Isaura Rae 11/26/2024 9:45 AM EDT Appointment [facility] [address] [place] [address] Agueda Mccray A 12/03/2024 9:00 AM EDT Appointment [facility] [address] [place] [address] Isaura Rae 12/03/2024 9:45 AM EDT Appointment [facility] [address] [place] [address] Agueda Mccray 12/10/2024 9:00 AM EDT Appointment [facility] [address] [place] [address] Isaura Rae 12/10/2024 9:45 AM EDT Appointment [facility] [address] [place] [address] Agueda Mccray A 12/17/2024 9:00 AM EDT Appointment [facility] [address] [place] [address] Isaura Rae 12/17/2024 9:45 AM EDT Appointment [facility] [address] [place] [address] Agueda Mccray A 12/24/2024 9:00 AM EDT Appointment [facility] [address] [place] [address] Isaura Rae 12/24/2024 9:45 AM EDT Appointment [facility] [address] [place] [address] Agueda Mccray A 12/31/2024 9:00 AM EDT Appointment [facility] [address] [place] [address] Isaura Rae 12/31/2024 9:45 AM EDT Appointment [facility] [address] [place] [address] Agueda Mccray A 01/07/2025 9:00 AM EDT Appointment [facility] [address] [place] [address] Isaura Rae 01/07/2025 9:45 AM EDT Appointment [facility] [address] [place] [address] Agueda Mccray A 01/14/2025 9:00 AM EDT Appointment [facility] [address] [place] [address] Isaura Rae 01/14/2025 9:45 AM EDT Appointment [facility] [address] [place] [address] Agueda Mccray 01/21/2025 9:00 AM EDT Appointment [facility] [address] [place] [address] Isaura Rae 01/21/2025 9:45 AM EDT Appointment [facility] [address] [place] [address] Agueda Mccray documented as of this encounter [...] documented as of this encounter Care Teams Activity Aide Relationship Specialty Start Date End Date Gabe Cohen MD [address] [place] [address] #1 #1 RAZ Ann [address] PCP - General 09/08/20 documented as of this encounter
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
--- OUTSIDE RECORDS SUMMARY | 2024-09-17 08:57 | XMS_ITS | Encounter Summary ---
Author Organization [facility] Address [address] [place] [address] Care Team Providers Care Pupil Personnel Worker Name Role Phone Gabe Cohen MD Primary Care Provider [phone] Reason for Visit * Consultation (Routine) - Authorized Specialty Diagnoses / Procedures Referred By Tanika lao Referred To Contact Physical Therapy Diagnoses Complex regional pain syndrome I Left arm weakness Herb Stauffer MD [address] [place] [address] Phone: tel: fax: [facility] [address] [place] [address] Phone: tel: fax: Referral ID Status Reason Start Date Expiration Date Visits Requested Visits Authorized [id number] Authorized Consult and Treat 11/11/2023 12/26/2024 1 39 Encounter Details Date Type Department Care Team (Latest Contact Info) Description 09/17/2024 8:57 AM EDT - 09/17/2024 11:59 PM EDT Hospital Encounter [facility] [address] [place] [address] Isaura Rae Complex regional pain [...] Reality Head Set Games: Lean Into the G-volution Beach-critter find Candy[place]-critter find Robot Find with [...] single leg balance with leg swings Nail Citizen Of [place] to right hand by PT and left [...] Rehab Potential: Good Education Given: Verbal, Demonstrated [place] ADaPT protocol Physical Therapy Home Exercise Program [...] start See HEP sheet given Access Code: [email or web address] URL: [email or web address] Date: 07/17/2023 Prepared by: Shayna Flores Program [...] sets - 10 reps - Supine Hamstring [place] Islander Ball Curls/Dynamic Mobilization - 1 x daily - 2 x weekly - 2 sets - 10 reps - Bridge with Heels on Cook Islander Ball - 1 x daily - 2 x weekly - 2 sets - 10 reps Assessment Patient was able to apply nail hungarian to left thumbnail today and demonstrated improved [...] Patient Specific Functional Scale. Goal Met - 11/27 5. Patient will complete the sensory grid examination of her cervical spine. Goal Met - 6 Linseed Oil Press Tender Goals (12 weeks) Pt will be able to improve tolerance to [place] Bike Test by 4 stages to demonstrate [...] EDT Appointment [facility] [address] [place] [address] Isaura Rae 10/22/2024 9:00 AM EDT Appointment [facility] [address] [place] [address] Isaura Rae 10/22/2024 9:45 AM EDT Appointment [facility] [address] [place] [address] Agueda Mccray 11/05/2024 9:00 AM EDT Appointment [facility] [address] [place] [address] Isaura Rae 11/05/2024 9:45 AM EDT Appoint[facility] [address] [place] [address] Agueda Mccray 11/12/2024 9:00 AM EDT Appointment [facility] [address] [place] [address] Isaura Rae 11/12/2024 9:45 AM EDT Appointment [facility] [address] [place] [address] Agueda Mccray 11/19/2024 9:00 AM EDT Appointment [facility] [address] [place] [address] Isaura Rae 11/19/2024 9:45 AM EDT Appointment [facility] [address] [place] [address] Agueda Mccray 11/26/2024 9:00 AM EDT Appointment [facility] [address] [place] [address] Isaura Rae 11/26/2024 9:45 AM EDT Appointment [facility] [address] [place] [address] Agueda Mccray 12/03/2024 9:00 AM EDT Appointment [facility] [address] [place] [address] Isaura Rae 12/03/2024 9:45 AM EDT Appointment [facility] [address] [place] [address] Agueda Mccray A 12/10/2024 9:00 AM EDT Appointment [facility] [address] [place] [address] Isaura Rae 12/10/2024 9:45 AM EDT Appointment [facility] [address] [place] [address] Agueda Mccray A 12/17/2024 9:00 AM EDT Appointment [facility] [address] [place] [address] Isaura Rae 12/17/2024 9:45 AM EDT Appointment [facility] [address] [place] [address] Agueda Mccray A 12/24/2024 9:00 AM EDT Appointment [facility] [address] [place] [address] Isaura Rae 12/24/2024 9:45 AM EDT Appointment [facility] [address] [place] [address] Agueda Mccray A 12/31/2024 9:00 AM EDT Appointment [facility] [address] [place] [address] Isaura Rae 12/31/2024 9:45 AM EDT Appointment [facility] [address] [place] [address] Agueda Mccray A 01/07/2025 9:00 AM EDT Appointment [facility] [address] [place] [address] Isaura Rae 01/07/2025 9:45 AM EDT Appointment [facility] [address] [place] [address] Agueda Mccray A 01/14/2025 9:00 AM EDT Appointment [facility] [address] [place] [address] Isaura Rae 01/14/2025 9:45 AM EDT Appointment [facility] [address] [place] [address] Agueda Mccray A 01/21/2025 9:00 AM EDT Appointment [facility] [address] [place] [address] Isaura Rae 01/21/2025 9:45 AM EDT Appointment [facility] [address] [place] [address] Agueda Mccray documented as of this encounter [...] documented as of this encounter Care Teams Pupil Personnel Worker Relationship Specialty Start Date End Date Gabe Cohen MD [address] [place] [address] #1 #1 RAZ Ann [address] PCP - General 09/08/20 documented as of this encounter
--- OUTSIDE RECORDS SUMMARY | 2024-09-17 08:57 | XMS_ITS | Encounter Summary ---
Author Organization [facility] Address [address] [place] [address] Care Team Providers Care 5Th Grade Teacher Name Role Phone Gabe Cohen MD Primary Care Provider [phone] Reason for Visit * Consultation (Routine) - Authorized Specialty Diagnoses / Procedures Referred By Tanika lao Referred To Contact Occupational Therapy Diagnoses Complex regional pain syndrome I Left arm weakness Herb Stauffer MD [address] [place] [address] Phone: tel: fax: [facility] [address] [place] [address] Phone: tel: fax: Referral ID Status Reason Start Date Expiration Date Visits Requested Visits Authorized [id number] Authorized Consult and Treat 11/11/2023 12/26/2024 1 44 Encounter Details Date Type Department Care Team (Latest Contact Info) Description 09/17/2024 8:57 AM EDT - 09/17/2024 11:59 PM EDT Hospital Encounter [facility] [address] [place] [address] Agueda Mccray Complex regional pain [...] Agueda Mccray - 09/17/2024 9:45 AM EDT [facility] OCCUPATIONAL THERAPY REASSESSMENT Today's [...] Present: No Patient's Preferred Language for Communication: Moroccan Sustainability Executive Director: No Clinical Background viviana Camilo 54 y.o. 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 She was sent to [facility] where she was diagnosed with CRPS. [...] to have a psychological evaluation by the [facility]. Patient reported [...] make the pain worse include: trying to steam shovel oiler their affected arm/hand. At present, patient reported that the pain prevents them from chief of pediatric urology, cooking, picking up heavy things, and doing [...] reports: Only using easy clothes. Pt reports: [place] how to adapt IADLs IND SAAVEDRA Sup/Touch [...] [] [] [] [] [] [] [] home care physical therapist [] [] [] [] [] [] [] [...] [] [] [] [] [] [] [] Christianity services [] [] [] [] [] [] [...] Unable to test Finger Opposition [] [x] Siebel Consultant and Pinch Strength: IE To be evaluated, [...] test the following at this time: LUE combination window installer, pinch, MMT, ROM, neuro screening, FMC, GMC. These items will be evaluated as appropriate and as pt is able to tolerate. CPRS as well as need to focus on other tx continue to impact ability to test. 08/09 continues with GMI program. Unable to test the following at this time: LUE combination window installer, pinch, MMT, ROM, neuro screening, FMC, GMC. [...] Initial Goal #5 Initial Goal #6 Initial Electronic Induction Hardener Goal Goal Status Date Met Comments Goal [...] [] Planned OT Treatments: [] Aquatic Therapy- 91564 []Group Therapy- 84748 []Prevocational Training-05804 []Wheelchair Management-58090 [] Pre-Prosthetic Training []Balance Training - 05742 [x]Home Management-34713 [x]Progressive Home Program []Work Hardening [x] Pt/Family Education [x]Basic Activity of Daily Living-31622 []Iontophoresis- 76279 [x]Safety education []Work Simplification [x] Fluidotherapy-69322 [x]Cog-Function Therapeutic Intervention-93257 []Orthotic/prosthetic MGMT Training- 95638 [x]Self-home mgmt/ADL-08696 []Work/school related tasks [x] E- stim unattended G0283 []Community Work Integration-29119 [x]Joint Protection [x]Sensory Integration- 61592 [x] Splinting/Casting [x] Manual Therapy 75150 []Contrast Bath- 03181 [x]Coordination- 07274 [x]Mobility Training-35887 [x]Therapeutic Activity-88001 [x] Discharge Planning [x] Edema Management [x]Neuromuscular Reeducation-39820 [x]Therapeutic Exercises-93586 [] Job Simulation [x] Thermal Modalities-90258 []Energy Conservation Training [x]Pain management [x]Ultrasound- phonophoresis-98781 [x] Equipment Evaluation/Training [x] Paraffin [x] E-stim attended- 52485 [] Parenting/Care of others []Visual and Perceptual [...] not hesitate to contact me at the [facility] at [facility] at for any questions or concerns. documented in this encounter Plan of Treatment Upcoming Encounters Date Type Department Care Team (Late st Contact Info) Description 10/15/2024 9:00 AM EDT Appointment [facility] [address] [place] [address] Isaura Rae 10/22/2024 9:00 AM EDT Appointment [facility] [address] [place] [address] Isaura Rae 10/22/2024 9:45 AM EDT Appointment [facility] [address] [place] [address] Agueda Mccray 11/05/2024 9:00 AM EDT Appointment [facility] [address] [place] [address] Isaura Rae 11/05/2024 9:45 AM EDT Appointment [facility] [address] [place] [address] Agueda Mccray 11/12/2024 9:00 AM EDT Appointment [facility] [address] [place] [address] Isaura Rae 11/12/2024 9:45 AM EDT Appointment [facility] [address] [place] [address] Agueda Mccray A 11/19/2024 9:00 AM EDT Appointment [facility] [address] [place] [address] Isaura Rae 11/19/2024 9:45 AM EDT Appointment [facility] [address] [place] [address] Agueda Mccray A 11/26/2024 9:00 AM EDT Appointment [facility] [address] [place] [address] Isaura Rae 11/26/2024 9:45 AM EDT Appointment [facility] [address] [place] [address] Agueda Mccray A 12/03/2024 9:00 AM EDT Appointment [facility] [address] [place] [address] Isaura Rae 12/03/2024 9:45 AM EDT Appointment [facility] [address] [place] [address] Agueda Mccray A 12/10/2024 9:00 AM EDT Appointment [facility] [address] [place] [address] Isaura Rae 12/10/2024 9:45 AM EDT Appointment [facility] [address] [place] [address] Amelie Mccrayekah A 12/17/2024 9:00 AM EDT Appointment [facility] [address] [place] [address] Isaura Rae 12/17/2024 9:45 AM EDT Appointment [facility] [address] [place] [address] Agueda Mccray A 12/24/2024 9:00 AM EDT Appointment [facility] [address] [place] [address] Isaura Rae 12/24/2024 9:45 AM EDT Appointment [facility] [address] [place] [address] Agueda Mccray A 12/31/2024 9:00 AM EDT Appointment [facility] [address] [place] [address] Isaura Rae 12/31/2024 9:45 AM EDT Appointment [facility] [address] [place] [address] Agueda Mccray A 01/07/2025 9:00 AM EDT Appointment [facility] [address] [place] [address] Isaura Rae 01/07/2025 9:45 AM EDT Appointment [facility] [address] [place] [address] Agueda Mccray A 01/14/2025 9:00 AM EDT Appointment [facility] [address] [place] [address] Isaura Rae 01/14/2025 9:45 AM EDT Appointment [facility] [address] [place] [address] Amelie Mccrayekah A 01/21/2025 9:00 AM EDT Appointment [facility] [address] [place] [address] Isaura Rae 01/21/2025 9:45 AM EDT Appointment [facility] [address] [place] [address] Agueda Mccray documented as of this encounter [...] documented as of this encounter Care Teams 5Th Grade Teacher Relationship Specialty Start Date End Date Gabe Cohen MD [address] [place] [address] #1 [address] [place] [address] PCP - General 09/08/20 documented as of this encounter
--- OUTSIDE RECORDS SUMMARY | 2024-09-24 08:58 | XMS_ITS | Encounter Summary ---
Author Organization [facility] Address [address] [place] [address] Care Team Providers Care Scheduling Manager Name Role Phone Gabe Cohen MD Primary Care Provider [phone] Reason for Visit * Consultation (Routine) - Authorized Specialty Diagnoses / Procedures Referred By Tanika lao Referred To Contact Occupational Therapy Diagnoses Complex regional pain syndrome I Left arm weakness Herb Stauffer MD [address] [place] [address] Phone: tel: fax: [facility] [address] [place] [address] Phone: tel: fax: Referral ID Status Reason Start Date Expiration Date Visits Requested Visits Authorized [id number] Authorized Consult and Treat 11/11/2023 12/26/2024 1 44 Encounter Details Date Type Department Care Team (Latest Contact Info) Description 09/24/2024 8:58 AM EDT - 09/24/2024 8:59 AM EDT Hospital Encounter [facility] [address] [place] [address] Agueda Mccray Complex regional pain [...] * Progress Notes - Agueda Mccray - 09/24/2024 9:45 AM EDT Occupational Therapy OT Treatment Note DATE: 09/24/24 NAME: Radha Gabriel Date of : 1970 Therapist: Agueda Mccray General Chief Complaint: CRPS, L arm weakness Time In: 0945 Time Out: 1030 Chart Reviewed: Yes Family/Caregiver Present: No Patient's Preferred Language for Communication: Faroese Janitor Caretaker: No Subjective Pt reports in process of weaning off medication due to side effects and intends to start new med this coming Friday. Pt also stated Pain 7/10 pain, L jaw, L arm, L shoulder, L leg Treatment/Education (45 minutes neuromuscular reeducation) Graded motor imagery task R/L discrimination: Left 60% with reaction time of 2.28 seconds, Right 75%, with a reaction time of 2.45 seconds, with 40 images. - no change in symptoms Memory medium difficulty - no change in symptoms Memory on hard - drained and exhausted Graded motor imagery task R/L discrimination: Left 55% with reaction time of 3.23 seconds, Right 65%, with a reaction time of 2.78 seconds, with 40 images. - no change in symptoms Initiated a trial of personal narrative intervention focused on recalling tasks previously performed using the left upper extremity. This approach is intended to encourage the patient to recognize and reintegrate the LUE as part of her body schema, supporting functional awareness and embodiment in the context of FND/CRPS. Pt reporting the following with visual focus on LUE -holding reigns, cartwheel, holding onto a steering wheel, cooking, holding food with both hands, swimming, and fixing hair. OT encouraged pt to continue personal narrative with LUE to improve functional awareness. Throughout the session, calming sensory input was provided by dimming the lights and playing soundsof ocean waves to promote relaxation and support engagement. Assessment Pt responding well to intervention this date, [...] Initial Goal #5 Initial Goal #6 Initial Hvac Maintenance Technician Goal Goal Status Date Met Comments Goal #1 Pt will be independent with progressive home exercise program upon discharge. Progressing Goal #2 Pt will report improved ability to navigate stressful or triggering situations, implementing coping strategies as needed with reports of no increase in symptoms, upon discharge. Progressing / pt reports improvements but continues to have [...] with minimal symptoms changes, upon discharge. Progressing 12/6 pt continues to be unable to tolerate [...] progress using GMI fransisco per OT instruction 1/ Left 55%, Right 85% with 40 images, [...] of care Written by Agueda Mccray on 09/24/24 at 12:50 PM documented in this encounter Plan of Treatment Upcoming Encounters Date Type Department Care Team (Late st Contact Info) Description 10/15/2024 9:00 AM EDT Appointment [facility] [address] [place] [address] Isaura Rae 10/22/2024 9:00 AM EDT Appointment [facility] [address] [place] [address] Isaura Rae 10/22/2024 9:45 AM EDT Appointment [facility] [address] [place] [address] Agueda Mccray 11/05/2024 9:00 AM EDT Appointment [facility] [address] [place] [address] Isaura Rae 11/05/2024 9:45 AM EDT Appointment [facility] [address] [place] [address] Agueda Mccray 11/12/2024 9:00 AM EDT Appointment [facility] [address] [place] [address] Isaura Rae 11/12/2024 9:45 AM EDT Appointment [facility] [address] [place] [address] Agueda Mccray 11/19/2024 9:00 AM EDT Appointment [facility] [address] [place] [address] Isaura Rae 11/19/2024 9:45 AM EDT Appointment [facility] [address] [place] [address] Agueda Mccray 11/26/2024 9:00 AM EDT Appointment [facility] [address] [place] [address] Isaura Rae 11/26/2024 9:45 AM EDT Appointment [facility] [address] [place] [address] Amelie Mccrayekah A 12/03/2024 9:00 AM EDT Appointment [facility] [address] [place] [address] Isaura Rae 12/03/2024 9:45 AM EDT Appointment [facility] [address] [place] [address] Agueda Mccray A 12/10/2024 9:00 AM EDT Appointment [facility] [address] [place] [address] Isaura Rae 12/10/2024 9:45 AM EDT Appointment [facility] [address] [place] [address] Agueda Mccray A 12/17/2024 9:00 AM EDT Appointment [facility] [address] [place] [address] Isaura Rae 12/17/2024 9:45 AM EDT Appointment [facility] [address] [place] [address] Agueda Mccray A 12/24/2024 9:00 AM EDT Appointment [facility] [address] [place] [address] Isaura Rae 12/24/2024 9:45 AM EDT Appointment [facility] [address] [place] [address] Agueda Mccray A 12/31/2024 9:00 AM EDT Appointment [facility] [address] [place] [address] Isaura Rae 12/31/2024 9:45 AM EDT Appointment [facility] [address] [place] [address] Agueda Mccray A 01/07/2025 9:00 AM EDT Appointment [facility] [address] [place] [address] Isaura Rae 01/07/2025 9:45 AM EDT Appointment [facility] [address] [place] [address] Agueda Mccray 01/14/2025 9:00 AM EDT Appointment [facility] [address] [place] [address] Isaura Rae 01/14/2025 9:45 AM EDT Appointment [facility] [address] [place] [address] Agueda Mccray 01/21/2025 9:00 AM EDT Appointment [facility] [address] [place] [address] Isaura Rae 01/21/2025 9:45 AM EDT Appointment [facility] [address] [place] [address] Agueda Mccray documented as of this encounter [...] documented as of this encounter Care Teams Scheduling Manager Relationship Specialty Start Date End Date Gabe Cohen MD [address] [place] [address] #1 #1 [place]Z Ann [address] PCP - General 09/08/20 documented as of this encounter
--- OUTSIDE RECORDS SUMMARY | 2024-09-24 09:00 | XMS_ITS | Encounter Summary ---
Author Organization [facility] Address [address] [place] [address] Care Team Providers Care High Raw Sugar Boiler Name Role Phone Gabe Cohen MD Primary Care Provider [phone] Reason for Visit * Consultation (Routine) - Authorized Specialty Diagnoses / Procedures Referred By Tanika lao Referred To Contact Physical Therapy Diagnoses Complex regional pain syndrome I Left arm weakness Herb Stauffer MD [address] [place] [address] Phone: tel: fax: [facility] [address] [place] [address] Phone: tel: fax: Referral ID Status Reason Start Date Expiration Date Visits Requested Visits Authorized [id number] Authorized Consult and Treat 11/11/2023 12/26/2024 1 39 Encounter Details Date Type Department Care Team (Latest Contact Info) Description 09/24/2024 9:00 AM EDT - 09/24/2024 11:59 PM EDT Hospital Encounter [facility] [address] [place] [address] Isaura Rae Complex regional pain [...] Head Set Games: Lean Into the Music [employer] Beach-critter find CandyLand-critter find Robot Find with [...] start See HEP sheet given Access Code: [email or web address] URL: [email or web address] Date: 07/17/2023 Prepared by: Shayna Flores Program [...] sets - 10 reps - Supine Hamstring Grenadian Ball Curls/Dynamic Mobilization - 1 x daily - 2 x weekly - 2 sets - 10 reps - Bridge with Heels on Grenadian Ball - 1 x daily - 2 [...] her cervical spine. Goal Met - 9/6 Snf Goals (12 weeks) Pt will be able to improve tolerance to [employer] Bike Test by 4 stages to demonstrate [...] EDT Appointment [facility] [address] [place] [address] Isaura Rae 10/22/2024 9:00 AM EDT Appointment [facility] [address] [place] [address] Isaura Rae 10/22/2024 9:45 AM EDT Appointment [facility] [address] [place] [address] Agueda Mccray 11/05/2024 9:00 AM EDT Appointment [facility] [address] [place] [address] Isaura Rae 11/05/2024 9:45 AM EDT Appointment [facility] [address] [place] [address] Agueda Mccray 11/12/2024 9:00 AM EDT Appointment [facility] [address] [place] [address] Isaura Rae 11/12/2024 9:45 AM EDT Appointment [facility] [address] [place] [address] Agueda Mccray 11/19/2024 9:00 AM EDT Appointment [facility] [address] [place] [address] Isaura Rae 11/19/2024 9:45 AM EDT Appointment [facility] [address] [place] [address] Agueda Mccray A 11/26/2024 9:00 AM EDT Appointment [facility] [address] [place] [address] Isaura Rae 11/26/2024 9:45 AM EDT Appointment [facility] [address] [place] [address] Agueda Mccray A 12/03/2024 9:00 AM EDT Appointment [facility] [address] [place] [address] Isaura Rae 12/03/2024 9:45 AM EDT Appointment [facility] [address] [place] [address] Agueda Mccray A 12/10/2024 9:00 AM EDT Appointment [facility] [address] [place] [address] Isaura Rae 12/10/2024 9:45 AM EDT Appointment [facility] [address] [place] [address] Agueda Mccray A 12/17/2024 9:00 AM EDT Appointment [facility] [address] [place] [address] Isaura Rae 12/17/2024 9:45 AM EDT Appointment [facility] [address] [place] [address] Agueda Mccray A 12/24/2024 9:00 AM EDT Appointment [facility] [address] [place] [address] Isaura Rae 12/24/2024 9:45 AM EDT Appointment [facility] [address] [place] [address] Agueda Mccray A 12/31/2024 9:00 AM EDT Appointment [facility] [address] [place] [address] Isaura Rae 12/31/2024 9:45 AM EDT Appointment [facility] [address] [place] [address] Agueda Mccray A 01/07/2025 9:00 AM EDT Appointment [facility] [address] [place] [address] Isaura Rae 01/07/2025 9:45 AM EDT Appointment [facility] [address] [place] [address] Agueda Mccray A 01/14/2025 9:00 AM EDT Appointment [facility] [address] [place] [address] Isaura Rae 01/14/2025 9:45 AM EDT Appointment [facility] [address] [place] [address] Agueda Mccray 01/21/2025 9:00 AM EDT Appointment [facility] [address] [place] [address] Isaura Rae 01/21/2025 9:45 AM EDT Appointment [facility] [address] [place] [address] Agueda Mccray documented as of this encounter [...] documented as of this encounter Care Teams High Raw Sugar Boiler Relationship Specialty Start Date End Date Gabe Cohen MD [address] [place] [address] #1 #1 RAZ Ann [address] PCP - General 09/08/20 documented as of this encounter
--- OUTSIDE RECORDS SUMMARY | 2024-10-01 08:58 | XMS_ITS | Encounter Summary ---
Author Organization [facility] Address [address] [place] [address] Care Team Providers Care [employer]vp Digital [employer] Food & Cooking Name Role Phone Gabe Cohen MD Primary Care Provider [phone] Reason for Visit * Consultation (Routine) - Authorized Specialty Diagnoses / Procedures Referred By Tanika lao Referred To Contact Physical Therapy Diagnoses Complex regional pain syndrome I Left arm weakness Herb Stauffer MD [address] [place] [address] Phone: tel: fax: [facility] [address] [place] [address] Phone: tel: fax: Referral ID Status Reason Start Date Expiration Date Visits Requested Visits Authorized [id number] Authorized Consult and Treat 11/11/2023 12/26/2024 1 39 Encounter Details Date Type Department Care Team (Latest Contact Info) Description 10/01/2024 8:58 AM EDT Hospital Encounter [facility] [address] [place] [address] Isaura Rae Complex regional pain [...] Head Set Games: Lean Into the Music Qbaka Beach-critter find CandyLand-critter find Robot Find with [...] Rehab Potential: Good Education Given: Verbal, Demonstrated [facility] protocol Physical Therapy Home Exercise Program Cardio: [...] start See HEP sheet given Access Code: [email or web address] URL: [email or web address] Date: 07/17/2023 Prepared by: Shayna Flores Program [...] sets - 10 reps - Supine Hamstring Jordanian Ball Curls/Dynamic Mobilization - 1 x daily - 2 x weekly - 2 sets - 10 reps - Bridge with Heels on Jordanian Ball - 1 x daily - 2 [...] her cervical spine. Goal Met - 9/6 Assistant Professor Of Psychology Goals (12 weeks) Pt will be able to improve tolerance to [employer] Bike Test by 4 stages to demonstrate [...] EDT Appointment [facility] [address] [place] [address] Isaura Rae 10/22/2024 9:00 AM EDT Appointment [facility] [address] [place] [address] Isaura Rae 10/22/2024 9:45 AM EDT Appointment [facility] [address] [place] [address] Agueda Mccray 11/05/2024 9:00 AM EDT Appointment [facility] [address] [place] [address] Isaura Rae 11/05/2024 9:45 AM EDT Appointment [facility] [address] [place] [address] Agueda Mccray 11/12/2024 9:00 AM EDT Appointment [facility] [address] [place] [address] Isaura Rae 11/12/2024 9:45 AM EDT Appointment [facility] [address] [place] [address] Agueda Mccray 11/19/2024 9:00 AM EDT Appointment [facility] [address] [place] [address] Isaura Rae 11/19/2024 9:45 AM EDT Appointment [facility] [address] [place] [address] Agueda Mccray A 11/26/2024 9:00 AM EDT Appointment [facility] [address] [facility] [address] Isaura Rae 11/26/2024 9:45 AM EDT Appointment [facility] [address] [place] [address] Agueda Mccray 12/03/2024 9:00 AM EDT Appointment [facility] [address] [place] [address] Isaura Rae 12/03/2024 9:45 AM EDT Appointment [facility] [address] [place] [address] Agueda Mccray 12/10/2024 9:00 AM EDT Appointment [facility] [address] [place] [address] Isaura Rae 12/10/2024 9:45 AM EDT Appointment [facility] [address] [place] [address] Agueda Mccray 12/17/2024 9:00 AM EDT Appointment [facility] [address] [place] [address] Isaura Rae 12/17/2024 9:45 AM EDT Appointment [facility] [address] [place] [address] Agueda Mccray 12/24/2024 9:00 AM EDT Appointment [facility] [address] [place] [address] Isaura Rae 12/24/2024 9:45 AM EDT Appointment [facility] [address] [place] [address] Agueda Mccray 12/31/2024 9:00 AM EDT Appointment [facility] [address] [place] [address] Isaura Rae 12/31/2024 9:45 AM EDT Appointment [facility] [address] [place] [address] Agueda Mccray A 01/07/2025 9:00 AM EDT Appointment [facility] [address] [place] [address] Isaura Rae 01/07/2025 9:45 AM EDT Appointment [facility] [address] [place] [address] Agueda Mccray A 01/14/2025 9:00 AM EDT Appointment [facility] [address] [place] [address] Isaura Rae 01/14/2025 9:45 AM EDT Appointment [facility] [address] [place] [address] Agueda Mccray 01/21/2025 9:00 AM EDT Appointment [facility] [address] [place] [address] Isaura Rae 01/21/2025 9:45 AM EDT Appointment [facility] [address] [place] [address] Agueda Mccray documented as of this encounter [...] documented as of this encounter Care Teams Svp Digital Sales Food & Cooking Relationship Specialty Start Date End Date Gabe Cohen MD [address] [place] [address] #1 #1 RAZ Ann [address] PCP - General 09/08/20 documented as of this encounter
--- OUTSIDE RECORDS SUMMARY | 2024-10-01 08:59 | XMS_ITS | Encounter Summary ---
Author Organization [facility] Address [address] [place] [address] Care Team Providers Care Roll Forming Machine Set Up Mechanic Name Role Phone Gabe Cohen MD Primary Care Provider [phone] Reason for Visit * Consultation (Routine) - Authorized Specialty Diagnoses / Procedures Referred By Tanika lao Referred To Contact Occupational Therapy Diagnoses Complex regional pain syndrome I Left arm weakness Herb Stauffer MD [address] [place] [address] Phone: tel: fax: [facility] [address] [place] [address] Phone: tel: fax: Referral ID Status Reason Start Date Expiration Date Visits Requested Visits Authorized [id number] Authorized Consult and Treat 11/11/2023 12/26/2024 1 44 Encounter Details Date Type Department Care Team (Latest Contact Info) Description 10/01/2024 8:59 AM EDT - 10/01/2024 11:59 PM EDT Hospital Encounter [facility] [address] [place] [address] Agueda Mccray Complex regional pain [...] * Progress Notes - Agueda Mccray - 10/01/2024 9:45 AM EDT Occupational Therapy OT Treatment Note DATE: 10/01/24 NAME: Radha Gabriel Date of : 1970 Therapist: Agueda Mccray General Chief Complaint: CRPS, L arm weakness Time In: 0945 Time Out: 1030 Chart Reviewed: Yes Family/Caregiver Present: No Patient's Preferred Language for Communication: Greek Hot Dog Vender: No Subjective Pt reported last pristiq was Friday, and she took fluvoxamine for the first time last night. Pt reported trying to recognize LUE more as part of self based on education and discussion completed in previous tx. My brain's a little tired. My anxiety is really high today. Pain 7/10 pain, L jaw, L arm, L shoulder, L leg Treatment/Education (40 minutes neuromuscular reeducation) Graded motor imagery task R/L discrimination: Left 45% with reaction time of 3.36 seconds, Right 65%, with a reaction time of 2.95 seconds, with 40 images. - reported increased dizziness, eyes swimming Mirror therapy was used during the treatment session to address symptoms of CRPS. A gentle hand massage was then performed, along with use of relaxation techniques, pt then accepting application of nail serbian to right hand from OT, while continuing to utilize mirror to promote recognition of L hand. Pt declined to trial use of nail serbian on L hand this date, stating she did not believe she would be able to tolerate based in increased anxiety. Throughout the session, calming sensory input was provided by dimming the lights and playing music to promote relaxation and support engagement. Assessment [...] Initial Goal #5 Initial Goal #6 Initial Skilled Nursing Goal Goal Status Date Met Comments Goal [...] add and adjust based on pt's needs 1/ continue to add and adjust program based on pt's needs. Goal #4 Pt will verbalize improved ability to engage LUE in IADL tasks such as simple meal prep, with minimal symptoms changes, upon discharge. Progressing 04/02 pt continues to be unable to tolerate majority of IADLs without some level of assistance /3 unable to engage in LUE at this time. Goal #5 Pt will verbalize decreased overall pain to less than 5/10, while engaging in preferred activity such as painting, upon discharge. Progressing 04/02 pt's pain continue to impact ability to engage in preferred occupations 04/30 pain continues to be consistently in -12/05 pain Goal #6 Pt will be independent with lateral graded motor imagery home program, completing consistently using 40 images with a 5 second delay 5-6x a day, to prepare patient for functional use of LUE, upon discharge. Progressing 04/02 continue to progress using GMI fransisco per OT instruction 04/30 Left 55%, Right 85% with 40 images, [...] and a reduction in sleep disturbances. Progressing 07/02 pt continues to trial various techniques recommended [...] of care Written by Agueda Mccray on 10/01/24 at 9:51 AM documented in this encounter Plan of Treatment Upcoming Encounters Date Type Department Care Team (Late st Contact Info) Description 10/15/2024 9:00 AM EDT Appointment [facility] [address] [place] [address] Isaura Rae 10/22/2024 9:00 AM EDT Appointment [facility] [address] [place] [address] Isaura Rae 10/22/2024 9:45 AM EDT Appointment [facility] [address] [place] [address] Agueda Mccray 11/05/2024 9:00 AM EDT Appointment [facility] [address] [place] [address] Isaura Rae 11/05/2024 9:45 AM EDT Appointment [facility] [address] [place] [address] Agueda Mccray 11/12/2024 9:00 AM EDT Appointment [facility] [address] [place] [address] Isaura Rae 11/12/2024 9:45 AM EDT Appointment [facility] [address] [place] [address] Agueda Mccray A 11/19/2024 9:00 AM EDT Appointment [facility] [address] [place] [address] Isaura Rae 11/19/2024 9:45 AM EDT Appointment [facility] [address] [place] [address] Agueda Mccray A 11/26/2024 9:00 AM EDT Appointment [facility] [address] [place] [address] Isaura Rae 11/26/2024 9:45 AM EDT Appointment [facility] [address] [place] [address] Agueda Mccray A 12/03/2024 9:00 AM EDT Appointment [facility] [address] [place] [address] Isaura Rae 12/03/2024 9:45 AM EDT Appointment [facility] [address] [place] [address] Agueda Mccray A 12/10/2024 9:00 AM EDT Appointment [facility] [address] [place] [address] Isaura Rae 12/10/2024 9:45 AM EDT Appointment [facility] [address] [place] [address] Agueda Mccray A 12/17/2024 9:00 AM EDT Appointment [facility] [address] [place] [address] sIaura Rae 12/17/2024 9:45 AM EDT Appointment [facility] [address] [place] [address] Agueda Mccray 12/24/2024 9:00 AM EDT Appointment [facility] [address] [place] [address] Isaura Rae 12/24/2024 9:45 AM EDT Appointment [facility] [address] [place] [address] Agueda Mccray 12/31/2024 9:00 AM EDT Appointment [facility] [address] [place] [address] Isaura Rae 12/31/2024 9:45 AM EDT Appointment [facility] [address] [place] [address] Agueda Mccray A 01/07/2025 9:00 AM EDT Appointment [facility] [address] [place] [address] Isaura Rae 01/07/2025 9:45 AM EDT Appointment [facility] [address] [place] [address] Agueda Mccray 01/14/2025 9:00 AM EDT Appointment [facility] [address] [place] [address] Isaura Rae 01/14/2025 9:45 AM EDT Appointment [facility] [address] [place] [address] Agueda Mccray 01/21/2025 9:00 AM EDT Appointment [facility] [address] [place] [address] Isaura Rae 01/21/2025 9:45 AM EDT Appointment [facility] [address] [place] [address] Agueda Mccray documented as of this encounter [...] documented as of this encounter Care Teams Roll Forming Machine Set Up Mechanic Relationship Specialty Start Date End Date Gabe Cohen MD [address] [place] [address] #1 #1 MarcellusRAZ [address] PCP - General 09/08/20 documented as of this encounter
--- OUTSIDE RECORDS SUMMARY | 2024-10-08 23:06 | XMS_ITS | Encounter Summary ---
Author Organization [facility] Address [address] [place] [address] Care Team Providers Care Hard Tile Setter Name Role Phone Gabe Cohen MD Primary Care Provider [phone] Encounter Details Date Type Department Care Team (Late st Contact Info) Description 08/09/2024 Plan of Care Documentation [facility] [address] [place] [address] Social History Tobacco Use Types Packs/Day Years Used Date Smoking Tobacco: Never Smokeless Tobacco: Never Comments Unknown Sex and Gender Information Value Date Recorded Sex Assigned at Female 04/01/2024 1:10 PM EST Legal Sex Female 7:39 PM EDT Gender Identity Female 04/01/2024 1:10 PM EST Sexual Orientation Straight 04/01/2024 1: 10 PM EST documented as of this encounter Plan of Treatment Upcoming Encounters Date Type Department Care Team (Late st Contact Info) Description 10/15/2024 9:00 AM EDT Appointment [facility] [address] [place] [address] Isaura Rae 10/22/2024 9:00 AM EDT Appointment [facility] [address] [place] [address] Isaura Rae 10/22/2024 9:45 AM EDT Appointment [facility] [address] [place] [address] Agueda Mccray 11/05/2024 9:00 AM EDT Appointment [facility] [address] [place] [address] Isaura Rae 11/05/2024 9:45 AM EDT Appointment [facility] [address] [place] [address] Agueda Mccray A 11/12/2024 9:00 AM EDT Appointment [facility] [address] [place] [address] Isaura Rae 11/12/2024 9:45 AM EDT Appointment [facility] [address] [place] [address] Agueda Mccray A 11/19/2024 9:00 AM EDT Appointment [facility] [address] [place] [address] Isaura Rae 11/19/2024 9:45 AM EDT Appointment [facility] [address] [place] [address] Agueda Mccray A 11/26/2024 9:00 AM EDT Appointment [facility] [address] [place] [address] Isaura Rae 11/26/2024 9:45 AM EDT Appointment [facility] [address] [place] [address] Agueda Mccray A 12/03/2024 9:00 AM EDT Appointment [facility] [address] [place] [address] Isaura Rae 12/03/2024 9:45 AM EDT Appointment [facility] [address] [place] [address] Agueda Mccray A 12/10/2024 9:00 AM EDT Appointment [facility] [address] [place] [address] Isaura Rae 12/10/2024 9:45 AM EDT Appointment [facility] [address] [place] [address] Agueda Mccray A 12/17/2024 9:00 AM EDT Appointment [facility] [address] [place] [address] Isaura Rae 12/17/2024 9:45 AM EDT Appointment [facility] [address] [place] [address] Agueda Mccray A 12/24/2024 9:00 AM EDT Appointment [facility] [address] [place] [address] Isaura Rae 12/24/2024 9:45 AM EDT Appointment [facility] [address] [place] [address] Agueda Mccray A 12/31/2024 9:00 AM EDT Appointment [facility] [address] [place] [address] Isaura Rae 12/31/2024 9:45 AM EDT Appointment [facility] [address] [place] [address] Agueda Mccray A 01/07/2025 9:00 AM EDT Appointment [facility] [address] [place] [address] Isaura Rae 01/07/2025 9:45 AM EDT Appointment [facility] [address] [place] [address] Agueda Mccray A 01/14/2025 9:00 AM EDT Appointment [facility] [address] [place] [address] Isaura Rae 01/14/2025 9:45 AM EDT Appointment [facility] [address] [place] [address] Agueda Mccray A 01/21/2025 9:00 AM EDT Appointment [facility] [address] [place] [address] Isaura Rae 01/21/2025 9:45 AM EDT Appointment [facility] [address] [place] [address] Agueda Mccray documented as of this encounter Visit Diagnoses Not on filedocumented in this encounter Additional Health Concerns Assessment Noted Time A fall risk assessment has been complete d for the patient 06/04/2024 1:08 PM EST A Body Mass Index follow-up plan has been documented for the patient 06/04/2024 3:17 PM EST documented as of this encounter Care Teams Hard Tile Setter Relationship Specialty Start Date End Date Gabe Cohen MD [address] [place] [address] [address] [place] [address] PCP - General 09/08/20 documented as of this encounter
--- OUTSIDE RECORDS SUMMARY | 2024-10-08 23:06 | XMS_ITS | Encounter Summary ---
Author Organization [employer] [facility] [employer] Address [address] [place] [address] Care Team Providers Care Manager Trade Name Role Phone Mar Patterson Primary Care Provider [phone] Encounter Details Date Type Department Care Team (Late st Contact Info) Description 08/08/2020 Transcribed Document [facility] Family Medicine [facility] [place] [address] ProviderJustin MD [address] [id number] Social History Tobacco Use Types Packs/Day Years Used Date Smoking Tobacco: Never Assessed Comments Unknown Sex and Gender Information Value Date Recorded Sex Assigned at Female 06/22/2023 6:15 PM REDRYING MACHINE OPERATOR Legal Sex Female 5:55 PM CDT Gender Identity Female 06/22/2023 6:15 PM REDRYING MACHINE OPERATOR Sexual Orientation Straight 06/22/2023 6: 15 PM REDRYING MACHINE OPERATOR documented as of this encounter Miscellaneous Notes * [employer]ner Conversion Note - Historical ProviderMD - 08/08/2020 3:10 PM CDT ED Triage Entered On: 08/08/2020 15:33 EDT Performed On: 08/08/2020 15:24 EDT by AYDIN ALVAREZ RN ED Triage Across the Room Chief Complaint : Pt having covid sx since yesterday. fever, dizzy nausea and ta. Also her face and neck is very ed and burning. Was sent from [email or web address] for covid test. Triage Date/Time : 08/08/2020 15:24 EDT AYDIN ALVAREZ RN - 08/08/2020 15:24 EDT DCP GENERIC CODE Tracking Acuity : 3 - Urgent Tracking Group : [facility] ED AYDIN ALVAREZ RN - 08/08/2020 15:24 EDT Mode of Arrival : Ambulatory Transported to ED by : Private vehicle To Room Via : Ambulate Accompanied By : Unaccompanied ED Vital Signs : Document Height & Weight : Document ED Allergies : Document ED Reason for Visit : Document AYDIN ALVAREZ RN - 08/08/2020 15:24 EDT Infectious Disease History Has the patient ever been tested for COVID-19? : Yes, Patient stated results Negative Date of COVID-19 test known? : No Does patient have symptoms of COVID-19? : Yes COVID19 Screening : No Experiencing Infectious Disease Symptoms : Fever >/=38.6C/101 F /, Vomiting, Cough, New loss of taste or smell Physical contact outside [place] in the last 30 days : No Infectious Disease History : Chicken pox/Shingles, Influenza Tuberculosis Symptoms : None AYDIN ALVAREZ RN - 08/08/2020 15:24 EDT Vital Signs ED Temperature Source : Oral Temperature Mode : Fahrenheit Temperature, Fahrenheit : 97.9 Deg F Clinical Temperature, C : 36.6 Deg C Oxygen Therapy Mode : Room air Peripheral Pulse Rate : 95 bpm Respiratory Rate : 18 Breaths/Min Systolic Blood Pressure : 126 mmHg Diastolic Blood Pressure : 96 mmHg (HI) Oxygen Saturation : 100 % AYDIN ALVAREZ RN - 08/08/2020 15:24 EDT Allergy (As Of: 08/08/2020 15:33:07 EDT) Allergies (Active) Omnicef Estimated Onset Date: Unspecified ; Created By: CORBIN MARKS RN; Reaction Status: Active ; Category: Drug ; Substance: Omnicef ; Type: Allergy ; Updated By: CORBIN MARKS RN; Reviewed Date: 08/08/2020 15:26 EDT penicillin Estimated Onset Date: Unspecified ; Created By: CORBIN MARKS RN; Reaction Status: Active ; Category: Drug ; Substance: penicillin ; Type: Allergy ; Updated By: CORBIN MARKS RN; Reviewed Date: 08/08/2020 15:26 EDT Pyridium Estimated Onset Date: Unspecified ; Created By: CORBIN MARKS RN; Reaction Status: Active ; Category: Drug ; Substance: Pyridium ; Type: Allergy ; Updated By: CORBIN MARKS RN; Reviewed Date: 08/08/2020 15:26 EDT Diagnosis Control ED (As Of: 08/08/2020 15:33:07 EDT) Problems(Active) Abdominal pain (SNOMED CT :34163787 ) Name of Problem: Abdominal pain ; Recorder: CORBIN MARKS RN; Confirmation: Confirmed ; Classification: Medical ; Code: [id number] ; Contributor System: [employer]Nice[employer] ; Last Updated: 09/24/2016 9:30 EDT ; Life Cycle Date: 09/24/2016 ; Life Cycle Status: Active ; Vocabulary: SNOMED CT Back pain (SNOMED CT :019972609 ) Name of Problem: Back pain ; Recorder: CORBIN MARKS RN; Confirmation: Confirmed ; Classification: Medical ; Code: 254674428 ; Contributor System: [employer]Nice[employer] ; Last Updated: 09/24/2016 9:30 EDT ; Life Cycle Date: 09/24/2016 ; Life Cycle Status: Active ; Vocabulary: SNOMED CT Blood in stool (SNOMED CT :3439989226 ) Name of Problem: Blood in stool ; Recorder: CORBIN MARKS RN; Confirmation: Confirmed ; Classification: Medical ; Code: 0157013320 ; Contributor System: PowerChart ; Last Updated: 09/24/2016 9:30 EDT ; Life Cycle Date: 09/24/2016 ; Life Cycle Status: Active ; Vocabulary: SNOMED CT Change in bowel habits (SNOMED CT :232823963 ) Name of Problem: Change in bowel habits ; Recorder: CORBIN MARKS RN; Confirmation: Confirmed ; Classification: Medical ; Code: 157207143 ; Contributor System: PowerChart ; Last Updated: 09/24/2016 9:29 EDT ; Life Cycle Date: 09/24/2016 ; Life Cycle Status: Active ; Vocabulary: SNOMED CT Constipation (SNOMED CT :573454950 ) Name of Problem: Constipation ; Recorder: CORBIN MARKS RN; Confirmation: Confirmed ; Classification: Medical ; Code: 415198914 ; Contributor System: PowerChart ; Last Updated: 09/24/2016 9:30 EDT ; Life Cycle Date: 09/24/2016 ; Life Cycle Status: Active ; Vocabulary: SNOMED CT Crohns disease (SNOMED CT :2274764598 ) Name of Problem: Crohns disease ; Recorder: CORBIN MARKS RN; Confirmation: Confirmed ; Classification: Medical ; Code: 5527532890 ; Contributor System: PowerChart ; Last Updated: 09/24/2016 9:29 EDT ; Life Cycle Date: 09/24/2016 ; Life Cycle Status: Active ; Vocabulary: SNOMED CT Diarrhea (SNOMED CT :435664756 ) Name of Problem: Diarrhea ; Recorder: CORBIN MARKS RN; Confirmation: Confirmed ; Classification: Medical ; Code: 179296421 ; Contributor System: PowerChart ; Last Updated: 09/24/2016 9:30 EDT ; Life Cycle Date: 09/24/2016 ; Life Cycle Status: Active ; Vocabulary: SNOMED CT Hyperlipidemia (SNOMED CT :54965109 ) Name of Problem: Hyperlipidemia ; Recorder: CORBIN MARKS RN; Confirmation: Confirmed ; Classification: Medical ; Code: 83874767 ; Contributor System: PowerChart ; Last Updated: 09/24/2016 9:29 EDT ; Life Cycle Date: 09/24/2016 ; Life Cycle Status: Active ; Vocabulary: SNOMED CT Hypertension (SNOMED CT :7680625671 ) Name of Problem: Hypertension ; Recorder: CORBIN MARKS RN; Confirmation: Confirmed ; Classification: Medical ; Code: 8591871480 ; Contributor System: PowerChart ; Last Updated: 09/24/2016 9:29 EDT ; Life Cycle Date: 09/24/2016 ; Life Cycle Status: Active ; Vocabulary: SNOMED CT Loss of appetite (SNOMED CT :711356185 ) Name of Problem: Loss of appetite ; Recorder: CORBIN MARKS RN; Confirmation: Confirmed ; Classification: Medical ; Code: 668421707 ; Contributor System: PowerChart ; Last Updated: 09/24/2016 9:29 EDT ; Life Cycle Date: 09/24/2016 ; Life Cycle Status: Active ; Vocabulary: SNOMED CT Nausea (SNOMED CT :1986817483 ) Name of Problem: Nausea ; Recorder: CORBIN MARKS RN; Confirmation: Confirmed ; Classification: Medical ; Code: 7333107986 ; Contributor System: PowerChart ; Last Updated: 09/24/2016 9:30 EDT ; Life Cycle Date: 09/24/2016 ; Life Cycle Status: Active ; Vocabulary: SNOMED CT Rectal bleeding (SNOMED CT :315779515 ) Name of Problem: Rectal bleeding ; Recorder: CORBIN MARKS RN; Confirmation: Confirmed ; Classification: Medical ; Code: 662413021 ; Contributor System: [employer] ; Last Updated: 09/24/2016 9:30 EDT ; Life Cycle Date: 09/24/2016 ; Life Cycle Status: Active ; Vocabulary: SNOMED CT Diagnoses(Active) Medical screening exam Date: 08/08/2020 ; Diagnosis Type: Reason For Visit ; Confirmation: Complaint of ; Clinical Dx: Medical screening exam ; Classification: Medical ; Clinical Service: Emergency medicine ; Code: PNED ; Probability: 0 ; Diagnosis Code: [id number] ED Height and Weight Height Source : Stated Height Entry Format : [place] Height, Feet : 5 ft(Converted to: 152 cm, 60 Inch) Height, Inches : 2 Inch(Converted to: 0 ft 2 Inch, 5.08 cm) Clinical Height : 157.48 cm Weight Source, ED : Critical estimated dosing weight Weight Entry Format : [place] Weight, Pounds : 150 lb Clinical Dosing Weight : 68.18 kg Body Surface Area (BSA) : 1.69 m2 Body Mass Index : 27.5 kg/m2 (HI) [place] Body Weight (IBW) : 49.73 kg AYDIN ALVAREZ RN - 08/08/2020 15:24 EDT Electronically signed by Claudio Zimmerman Conversion Clinical Services Specialist Cerner at 08/12/2022 12:13 PM CDT documented in this encounter Plan of Treatment Not on file documented as of this encounter Visit Diagnoses Not on filedocumented in this encounter Care Teams Manager Trade Relationship Specialty Start Date End Date Mar Patterson [address] [place] [address] PCP - General 02/26/22 documented as of this encounter
--- OUTSIDE RECORDS SUMMARY | 2024-10-08 23:06 | XMS_ITS | Encounter Summary ---
Author Organization [employer] Address [address] [place] [address] Care Team Providers Care Sports Team Marketing Intern Name Role Phone Radha Pattersondy Primary Care Provider [phone] Encounter Details Date Type Department Care Team (Late st Contact Info) Description 08/08/2020 Transcribed Document [facility] [place] [facility] [place] [address] ProviderJustin MD [address] [place], [place] [address] Social History Tobacco Use Types Packs/Day Years Used Date Smoking Tobacco: Never Assessed Comments Unknown Sex and Gender Information Value Date Recorded Sex Assigned at Female 06/22/2023 6:15 PM ASPHALT DAUBER Legal Sex Female 5:55 PM CDT Gender Identity Female 06/22/2023 6:15 PM ASPHALT DAUBER Sexual Orientation Straight 06/22/2023 6: 15 PM ASPHALT DAUBER documented as of this encounter Miscellaneous Notes * Cerner Conversion Note - Historical ProviderMD - 08/08/2020 4:08 PM CDT ED Event Note Entered On: 08/08/2020 16:08 EDT Performed On: 08/08/2020 16:08 EDT by Kenyatta Miles Flex Team laborer marine terminal Event Note ED Event Date/Time : 08/08/2020 16:08 EDT ED Description of Event : pt was registered in error, pt is employee COVID test Kenyatta Miles Flex Team Rn - 08/08/2020 16:08 EDT Electronically signed by Elsie [facility] Conversion Checking Department Supervisor Cerner at 08/12/2022 12:12 PM CDT documented in this encounter Plan of Treatment Not on file documented as of this encounter Visit Diagnoses Not on filedocumented in this encounter Care Teams Sports Team Marketing Intern Relationship Specialty Start Date End Date Mar Patterson [address] [place] [address] PCP - General 02/26/22 documented as of this encounter
--- OUTSIDE RECORDS SUMMARY | 2024-10-08 23:06 | XMS_ITS | Encounter Summary ---
Author Organization [facility] Address [address] [place] [address] Care Team Providers Care Tube Building Machine Operator Name Role Phone Gabe Cohen MD Primary Care Provider [phone] Encounter Details Date Type Department Care Team (Latest Contact Info) Description 09/03/2024 Travel Social History Tobacco Use Types Packs/Day Years [...] EDT Appointment [facility] [address] [place] [address] Isaura Rae 10/22/2024 9:00 AM EDT Appointment [facility] [address] [place] [address] Isaura Rae 10/22/2024 9:45 AM EDT Appointment [facility] [address] [place] [address] Agueda Mccray 11/05/2024 9:00 AM EDT Appointment [facility] [address] [place] [address] Isaura Rae 11/05/2024 9:45 AM EDT Appointment [facility] [address] [place] [address] Agueda Mccray A 11/12/2024 9:00 AM EDT Appointment [facility] [address] [place] [address] Isaura Rae 11/12/2024 9:45 AM EDT Appointment [facility] [address] [place] [address] Agueda Mccray A 11/19/2024 9:00 AM EDT Appointment [facility] [address] [place] [address] Isaura Rae 11/19/2024 9:45 AM EDT Appointment [facility] [address] [place] [address] Agueda Mccray A 11/26/2024 9:00 AM EDT Appointment [facility] [address] [place] [address] Isaura Rae 11/26/2024 9:45 AM EDT Appointment [facility] [address] [place] [address] Agueda Mccray A 12/03/2024 9:00 AM EDT Appointment [facility] [address] [place] [address] Isaura Rae 12/03/2024 9:45 AM EDT Appointment [facility] [address] [place] [address] Agueda Mccray A 12/10/2024 9:00 AM EDT Appointment [facility] [address] [place] [address] Isaura Rae 12/10/2024 9:45 AM EDT Appointment [facility] [address] [place] [address] Agueda Mccray A 12/17/2024 9:00 AM EDT Appointment [facility] [address] [facility] [place] [address] Isaura Rae 12/17/2024 9:45 AM EDT Appointment [facility] [address] [place] [address] Agueda Mccray 12/24/2024 9:00 AM EDT Appointment [facility] [address] [place] [address] Isaura Rae 12/24/2024 9:45 AM EDT Appointment [facility] [address] [place] [address] Agueda Mccray 12/31/2024 9:00 AM EDT Appointment [facility] [address] [place] [address] Isaura Rae 12/31/2024 9:45 AM EDT Appointment [facility] [address] [place] [address] Agueda Mccray 01/07/2025 9:00 AM EDT Appointment [facility] [address] [place] [address] Isaura Rae 01/07/2025 9:45 AM EDT Appointment [facility] [address] [place] [address] Agueda Mccray 01/14/2025 9:00 AM EDT Appointment [facility] [address] [place] [address] Isaura Rae 01/14/2025 9:45 AM EDT Appointment [facility] [address] [place] [address] Agueda Mccray 01/21/2025 9:00 AM EDT Appointment [facility] [address] [place] [address] Isaura Rae 01/21/2025 9:45 AM EDT Appointment [facility] [address] [place] [address] Agueda Mccray documented as of this encounter Visit Diagnoses Not on filedocumented in this encounter Additional Health Concerns Assessment Noted Time A fall risk assessment has been complete d for the patient 06/04/2024 1:08 PM EST A Body Mass Index follow-up plan has been documented for the patient 06/04/2024 3:17 PM EST documented as of this encounter Care Teams Tube Building Machine Operator Relationship Specialty Start Date End Date Gabe Cohen MD [address] [place] [address] [address] [place] [address] PCP - General 09/08/20 documented as of this encounter
--- OUTSIDE RECORDS SUMMARY | 2024-10-08 23:06 | XMS_ITS | Encounter Summary ---
Author Organization [facility] Address [address] [place] [address] Care Team Providers Care Operation Specialist Name Role Phone Gabe Cohen MD Primary Care Provider [phone] Encounter Details Date Type Department Care Team (Late st Contact Info) Description 09/03/2024 Plan of Care Documentation [facility] [address] [place] [address] Social History Tobacco Use Types Packs/Day Years [...] EDT Appointment [facility] [address] [place] [address] Isaura Rae 10/22/2024 9:00 AM EDT Appointment [facility] [address] [place] [address] Isaura Rae 10/22/2024 9:45 AM EDT Appointment [facility] [address] [place] [address] Agueda Mccray 11/05/2024 9:00 AM EDT Appointment [facility] [address] [place] [address] Isaura Rae 11/05/2024 9:45 AM EDT Appointment [facility] [address] [place] [address] Agueda Mccray A 11/12/2024 9:00 AM EDT Appointment [facility] [address] [place] [address] Isaura Rae 11/12/2024 9:45 AM EDT Appointment [facility] [address] [place] [address] Agueda Mccray A 11/19/2024 9:00 AM EDT Appointment [facility] [address] [place] [address] Isaura Rae 11/19/2024 9:45 AM EDT Appointment [facility] [address] [place] [address] Agueda Mccray A 11/26/2024 9:00 AM EDT Appointment [facility] [address] [place] [address] Isaura Rae 11/26/2024 9:45 AM EDT Appointment [facility] [address] [place] [address] Agueda Mccray A 12/03/2024 9:00 AM EDT Appointment [facility] [address] [place] [address] Isaura Rae 12/03/2024 9:45 AM EDT Appointment [facility] [address] [place] [address] Agueda Mccray A 12/10/2024 9:00 AM EDT Appointment [facility] [address] [place] [address] Isaura Rae 12/10/2024 9:45 AM EDT Appointment [facility] [address] [place] [address] Agueda Mccray A 12/17/2024 9:00 AM EDT Appointment [facility] [address] [place] [address] Isaura Rae 12/17/2024 9:45 AM EDT Appointment [facility] [address] [place] [address] Agueda Mccray A 12/24/2024 9:00 AM EDT Appointment [facility] [address] [place] [address] Isaura Rae 12/24/2024 9:45 AM EDT Appointment [facility] [address] [place] [address] Agueda Mccray A 12/31/2024 9:00 AM EDT Appointment [facility] [address] [place] [address] Isaura Rae 12/31/2024 9:45 AM EDT Appointment [facility] [address] [place] [address] Agueda Mccray A 01/07/2025 9:00 AM EDT Appointment [facility] [address] [place] [address] Isaura Rae 01/07/2025 9:45 AM EDT Appointment [facility] [address] [place] [address] Agueda Mccray A 01/14/2025 9:00 AM EDT Appointment [facility] [address] [place] [address] Isaura Rae 01/14/2025 9:45 AM EDT Appointment [facility] [address] [place] [address] Agueda Mccray A 01/21/2025 9:00 AM EDT Appointment [facility] [address] [place] [address] Isaura Rae 01/21/2025 9:45 AM EDT Appointment [facility] [address] [place] [address] Agueda Mccray documented as of this encounter Visit Diagnoses Not on filedocumented in this encounter Additional Health Concerns Assessment Noted Time A fall risk assessment has been complete d for the patient 06/04/2024 1:08 PM EST A Body Mass Index follow-up plan has been documented for the patient 06/04/2024 3:17 PM EST documented as of this encounter Care Teams Operation Specialist Relationship Specialty Start Date End Date Gabe Cohen MD [address] [place] [address] [address]1 [address] [place] [address] PCP - General 09/08/20 documented as of this encounter
--- OUTSIDE RECORDS SUMMARY | 2024-10-08 23:06 | XMS_ITS | Clinical Summary ---
Author Organization [facility] Address [address] [place] [address] Care Team Providers Care Chairman And Chief Executive Officer Name Role Phone Gabe Cohen MD Primary Care Provider [phone] Allergies Active Allergy Reactions Criticality Noted Date Comments Cefdinir Unknown - Patient st ates they do not know rxn details Low 12/26/2016 Ciprofloxacin Hives High 01/04/2022 Doxycycline Hives,Itching Medium 03/13/2022 Penicillins Unknown - Patient st ates they do not know rxn details,Vomiting Low 12/26/2016 Phenazopyridine Unknown - Patient st ates they do not know rxn details Low 12/26/2016 Sulfa Drugs Unknown - Patient st ates they do not know rxn details,Other - please document in the comment field Low 12/26/2016 Medications gemfibrozil (Lopid) 600 MG tablet 02/12/2023 Active spironolactone-h ydroCHLOROthiazi de (Aldactazide) 25-25 MG tablet 02/12/2023 Act nimco gemfibrozil (Lopid) 600 MG tablet Take 1 tablet (600 mg) by mouth. 01/03/2017 Active spironolactone-h ydroCHLOROthiazi de (Aldactazide) 25-25 MG tablet Take 1 tablet (25 mg) by mouth 1 (one) time each day. Active amitriptyline (Elavil) 25 MG tabletIndication s:Complex regional pain syndrome type 1 of left upper extremity Take 1 tablet (25 mg) by mouth every night. 30 tablet 05/06/2023 Active Active Problems Problem Noted Date Diagnosed Date Complex regional pain syndrome of left upper ext remity 11/28/2023 Encounters Date Type Department Care Team Description 10/01/2024 8:59 AM EDT - 10/01/2024 11:59 PM EDT Hospital Encounter [facility] [address] [place] [address] Agueda Mccray Complex regional pain syndrome type 1 of left upper extremity (Primary Dx) Discharge Disposition: Still a Patient 10/01/2024 8:58 AM EDT Hospital Encounter [facility] [address] [place] [address] Isaura Rae Complex regional pain syndrome type 1 of left upper extremity (Primary Dx) Discharge Disposition: Still a Patient 10/01/2024 Travel 09/24/2024 9:00 AM EDT - 09/24/2024 11:59 PM EDT Hospital Encounter [facility] [address] [place] [address] Isaura Rae Complex regional pain syndrome type 1 of left upper extremity (Primary Dx) Discharge Disposition: Still a Patient 09/24/2024 8:58 AM EDT - 09/24/2024 8:59 AM EDT Hospital Encounter [facility] [address] [place] [address] Agueda Mccray A Complex regional pain syndrome type 1 of left upper extremity (Primary Dx) Discharge Disposition: Still a Patient 09/24/2024 Travel 09/24/2024 Plan of Care Documentation [facility] [address] [place] [address] 09/17/2024 8:57 AM EDT - 09/17/2024 11:59 PM EDT Hospital Encounter [facility] [address] [place] [address] Agueda Mccray A Complex regional pain syndrome type 1 of left upper extremity (Primary Dx) Discharge Disposition: Still a Patient 09/17/2024 8:57 AM EDT - 09/17/2024 11:59 PM EDT Hospital Encounter [facility] [address] [place] [address] Isaura Rae Complex regional pain syndrome type 1 of left upper extremity (Primary Dx) Discharge Disposition: Still a Patient 09/17/2024 Travel 09/03/2024 9:03 AM EDT - 09/03/2024 11:59 PM EDT Hospital Encounter [facility] [address] [place] [address] [place] Complex regional pain syndrome type 1 of left upper extremity (Primary Dx) Discharge Disposition: Still a Patient 09/03/2024 9:00 AM EDT - 09/03/2024 9:02 AM EDT Hospital Encounter [facility] [address] [place] [address] Isaura Rae Complex regional pain syndrome type 1 of left upper extremity (Primary Dx) Discharge Disposition: Still a Patient 09/03/2024 Travel 09/03/2024 Plan of Care Documentation [facility] [address] [place] [address] 08/27/2024 8:59 AM EDT - 08/27/2024 11:59 PM EDT Hospital Encounter [facility] [address] [place] [address] Agueda Mccray A Complex regional pain syndrome type 1 of left upper extremity (Primary Dx) Discharge Disposition: Still a Patient 08/27/2024 8:59 AM EDT - 08/27/2024 11:59 PM EDT Hospital Encounter [facility] [address] [place] [address] Isaura Rae Complex regional pain syndrome type 1 of left upper extremity (Primary Dx) Discharge Disposition: Still a Patient 08/27/2024 Travel 08/23/2024 Telephone [facility] [address] [place] [address] Luis Murray MD HCN - Patient Message 08/20/2024 8:59 AM EDT - 08/20/2024 11:59 PM EDT Hospital Encounter [facility] [address] [place] [address] Isaura Rae Complex regional pain syndrome type 1 of left upper extremity (Primary Dx) Discharge Disposition: Still a Patient 08/20/2024 Travel 08/13/2024 8:54 AM EDT - 08/13/2024 11:59 PM EDT Hospital Encounter [facility] [address] [place] [address] Agueda Mccray Complex regional pain syndrome type 1 of left upper extremity (Primary Dx) Discharge Disposition: Still a Patient 08/13/2024 8:54 AM EDT - 08/13/2024 11:59 PM EDT Hospital Encounter [facility] [address] [place] [address] Isaura Rae Complex regional pain syndrome type 1 of left upper extremity (Primary Dx) Discharge Disposition: Still a Patient 08/13/2024 Travel 08/09/2024 Plan of Care Documentation [facility] [address] [place] [address] 08/06/2024 9:45 AM EDT - 08/06/2024 11:59 PM EDT Hospital Encounter [facility] [address] [place] [address] Agueda Mccray A Complex regional pain syndrome type 1 of left upper extremity (Primary Dx) Discharge Disposition: Still a Patient 08/06/2024 8:57 AM EDT - 08/06/2024 9:44 AM EDT Hospital Encounter [facility] [address] [place] [address] Isaura Rae Complex regional pain syndrome type 1 of left upper extremity (Primary Dx) Discharge Disposition: Still a Patient 08/06/2024 Travel 08/06/2024 Plan of Care Documentation [facility] [address] [place] [address] 07/23/2024 9:00 AM EDT - 07/23/2024 11:59 PM EDT Hospital Encounter [facility] [address] [place] [address] Agueda Mccray A Complex regional pain syndrome type 1 of left upper extremity (Primary Dx) Discharge Disposition: Still a Patient 07/23/2024 8:59 AM EDT Hospital Encounter [facility] [address] [place] [address] Isaura Rae Complex regional pain syndrome type 1 of left upper extremity (Primary Dx) Discharge Disposition: Still a Patient 07/23/2024 Travel 07/21/2024 Telephone [facility] [address] [place] [address] Luis Murray MD HCN Clinical Concern/Question 07/16/2024 8:59 AM EDT - 07/16/2024 11:59 PM EDT Hospital Encounter [facility] [address] [place] [address] Agueda Mccray A Complex regional pain syndrome type 1 of left upper extremity (Primary Dx) Discharge Disposition: Still a Patient 07/16/2024 8:59 AM EDT - 07/16/2024 11:59 PM EDT Hospital Encounter [facility] [address] [place] [address] Isaura Rae Complex regional pain syndrome type 1 of left upper extremity (Primary Dx) Discharge Disposition: Still a Patient 07/16/2024 Travel 07/14/2024 Telephone [facility] [address] [place] [address] Luis Murray MD HCN - Patient Message 07/09/2024 9:01 AM EDT - 07/09/2024 11:59 PM EDT Hospital Encounter [facility] [address] [place] [address] Agueda Mccray A Complex regional pain syndrome type 1 of left upper extremity (Primary Dx) Discharge Disposition: Still a Patient 07/09/2024 9:00 AM EDT Hospital Encounter [facility] [address] [place] [address] Isaura Rae Complex regional pain syndrome type 1 of left upper extremity (Primary Dx) Discharge Disposition: Still a Patient 07/09/2024 Travel 07/08/2024 Travel from Last 3 Months Immunizations Immunization Administration Dates Next Due Tdap 12/26/2016 Family History Medical History Relation Name Comments Other cancer Father Relation Name Status Comments Father Social History Tobacco Use Types Packs/Day Years Used Date Smoking Tobacco: Never Smokeless Tobacco: Never Tobacco Cessation:Counseling Given: Not Answered Comments Unknown Sex and Gender Information Value Date Recorded Sex Assigned at Female 04/01/2024 1:10 PM EST Legal Sex Female 7:39 PM EDT Gender Identity Female 04/01/2024 1:10 PM EST Sexual Orientation Straight 04/01/2024 1: 10 PM EST Last Filed Vital Signs Vital Sign Reading Time Taken Comments Blood Pressure 171/99 06/04/2024 1:08 PM EST Pulse 99 06/04/2024 1:08 PM EST Temperature 36.6 C (97.8 F) 06/04/2024 1:08 PM EST Respiratory Rate 18 06/04/2024 1:08 PM EST Oxygen Saturation 99% 06/04/2024 1:08 PM EST Inhaled Oxygen Concentration - - Weight 59 kg (130 lb) 06/04/2024 1:08 PM EST Height 154.9 cm (5' 1 ) 06/04/2024 1:08 PM EST Body Mass Index 24.56 06/04/2024 1:08 PM EST Plan of Treatment Upcoming Encounters Date Type Department Care Team (Late st Contact Info) Description 10/15/2024 9:00 AM EDT Appointment [facility] [address] [place] [address] Isaura Rae 10/22/2024 9:00 AM EDT Appointment [facility] [address] [place] [address] Isaura Rae 10/22/2024 9:45 AM EDT Appointment [facility] [address] [place] [address] Agueda Mccray 11/05/2024 9:00 AM EDT Appointment [facility] [address] [place] [address] Isaura Rae 11/05/2024 9:45 AM EDT Appointment [facility] [address] [place] [address] Agueda Mccray A 11/12/2024 9:00 AM EDT Appointment [facility] [address] [place] [address] Isaura Rae 11/12/2024 9:45 AM EDT Appointment [facility] [address] [place] [address] Agueda Mccray A 11/19/2024 9:00 AM EDT Appointment [facility] [address] [place] [address] Isaura Rae 11/19/2024 9:45 AM EDT Appointment [facility] [address] [place] [address] Agueda Mccray A 11/26/2024 9:00 AM EDT Appointment [facility] [address] [place] [address] Isaura Rae 11/26/2024 9:45 AM EDT Appointment [facility] [address] [place] [address] Agueda Mccray A 12/03/2024 9:00 AM EDT Appointment [facility] [address] [place] [address] Isaura Rae 12/03/2024 9:45 AM EDT Appointment [facility] [address] [place] [address] Agueda Mccray A 12/10/2024 9:00 AM EDT Appointment [facility] [address] [place] [address] Isaura Rae 12/10/2024 9:45 AM EDT Appointment [facility] [address] [place] [address] Agueda Mccray A 12/17/2024 9:00 AM EDT Appointment [facility] [address] [place] [address] Isaura Rae 12/17/2024 9:45 AM EDT Appointment [facility] [address] [place] [address] Agueda Mccray 12/24/2024 9:00 AM EDT Appointment [facility] [address] [place] [address] Isaura Rae 12/24/2024 9:45 AM EDT Appointment [facility] [address] [place] [address] Agueda Mccray 12/31/2024 9:00 AM EDT Appointment [facility] [address] [place] [address] Isaura Rae 12/31/2024 9:45 AM EDT Appointment [facility] [address] [place] [address] Agueda Mccray 01/07/2025 9:00 AM EDT Appointment [facility] [address] [place] [address] Isaura Rae 01/07/2025 9:45 AM EDT Appointment [facility] [address] [place] [address] Agueda Mccray 01/14/2025 9:00 AM EDT Appointment [facility] [address] [place] [address] Isaura Rae 01/14/2025 9:45 AM EDT Appointment [facility] [address] [place] [address] Agueda Mccray 01/21/2025 9:00 AM EDT Appointment [facility] [address] [place] [address] Isaura Rae 01/21/2025 9:45 AM EDT Appointment [facility] [address] [place] [address] Agueda Mccray Health Maintenance Due Date Last Done Comments [facility]-Depression Screening 1970 [facility]-HIV Screening 1970 [facility]-Hepatitis C Screening 1970 [facility]-/Child/Adol SDOH Screenings 1970 [facility]- SDOH Screenings 1988 [facility]-Adult SDOH Screenings 1988 [facility]-Hepatitis B Vaccines (1 of 3 - 19+ 3-dose series) 1989 [facility]-Pap Smear 1991 [facility]-Cervical Cancer Screening 2000 [facility]-HPV/Cotest 2000 CT Colonography 2015 Colonoscopy 2015 FIT-DNA 2015 FIT 2015 FOBT 2015 Sigmoidoscopy 2015 [facility]-Colorectal Cancer Screening 2015 [facility]-Breast Cancer Screening 2020 [facility]-Pneumococcal Vaccine: 50 + Years (1 of 1 - PCV) 2020 [facility]-Zoster Vaccines (1 of 2) 2020 [id number] Vaccine (3 - 2023- season) 2023 01/26/2021, 12/29/2020 [facility]-Influenza Vaccine (Seaso n Ended) 2024 03/26/2022, 02/09/2020, 03/03/2009 [facility]-DTaP,Tdap,and Td Vaccine s (2 - Td or Tdap) 12/26/2026 12/26/2016 [facility]-Hepatitis A Vaccines Aged Out 05/04/2018 No longer eligible based on patient's age to complete this topic HPV Vaccines Aged Out No longer eligi ble based on patient's age to complete this topic [facility]-HIB Vaccines Aged Out No longer e ligible based on patient's age to complete this topic [facility]-IPV Vaccines Aged Out No longer e ligible based on patient's age to complete this topic [facility]-Rotavirus Vaccines Aged Out No lo nger eligible based on patient's age to complete this topic Insurance [employer] Care Teams Chairman And Chief Executive Officer Relationship Specialty Start Date End Date Gabe Cohen MD [address] [place] [address] #1 [address]1 [place] [id number] PCP - General 09/08/20
--- OUTSIDE RECORDS SUMMARY | 2024-10-08 23:06 | XMS_ITS | Encounter Summary ---
Author Organization [facility] Address [address] [place] [address] Care Team Providers Care Industrial Gas Servicer Supervisor Name Role Phone Gabe Cohen MD Primary Care Provider Encounter Details Date Type Department Care Team (Late st Contact Info) Description 09/24/2024 Plan of Care Documentation [facility] [address] [place] [address] Social History Tobacco Use Types Packs/Day Years [...] EDT Appointment [facility] [address] [place] [address] Isaura Rae 10/22/2024 9:00 AM EDT Appointment [facility] [address] [place] [address] Isaura Rae 10/22/2024 9:45 AM EDT Appointment [facility] [address] [place] [address] Agueda Mccray 11/05/2024 9:00 AM EDT Appointment [facility] [address] [place] [address] Isaura Rae 11/05/2024 9:45 AM EDT Appointment [facility] [address] [place] [address] Agueda Mccray A 11/12/2024 9:00 AM EDT Appointment [facility] [address] [place] [address] Isaura Rae 11/12/2024 9:45 AM EDT Appointment [facility] [address] [place] [address] Agueda Mccray A 11/19/2024 9:00 AM EDT Appointment [facility] [address] [place] [address] Isaura Rae 11/19/2024 9:45 AM EDT Appointment [facility] [address] [place] [address] Agueda Mccray A 11/26/2024 9:00 AM EDT Appointment [facility] [address] [place] [address] Isaura Rae 11/26/2024 9:45 AM EDT Appointment [facility] [address] [place] [address] Agueda Mccray A 12/03/2024 9:00 AM EDT Appointment [facility] [address] [place] [address] Isaura Rae 12/03/2024 9:45 AM EDT Appointment [facility] [address] [place] [address] Agueda Mccray A 12/10/2024 9:00 AM EDT Appointment [facility] [address] [place] [address] Isaura Rae 12/10/2024 9:45 AM EDT Appointment [facility] [address] [place] [address] Agueda Mccray A 12/17/2024 9:00 AM EDT Appointment [facility] [address] [place] [address] Isaura Rae 12/17/2024 9:45 AM EDT Appointment [facility] [address] [place] [address] Agueda Mccray A 12/24/2024 9:00 AM EDT Appointment [facility] [address] [place] [address] Isaura Rae 12/24/2024 9:45 AM EDT Appointment [facility] [address] [place] [address] Agueda Mccray A 12/31/2024 9:00 AM EDT Appointment [facility] [address] [place] [address] Isaura Rae 12/31/2024 9:45 AM EDT Appointment [facility] [address] [place] [address] Agueda Mccray A 01/07/2025 9:00 AM EDT Appointment [facility] [address] [place] [address] Isaura Rae 01/07/2025 9:45 AM EDT Appointment [facility] [address] [place] [address] Agueda Mccray A 01/14/2025 9:00 AM EDT Appointment [facility] [address] [place] [address] Isaura Rae 01/14/2025 9:45 AM EDT Appointment [facility] [address] [place] [address] Agueda Mccray A 01/21/2025 9:00 AM EDT Appointment [facility] [address] [place] [address] Isaura Rae 01/21/2025 9:45 AM EDT Appointment [facility] [address] [place] [address] Agueda Mccray documented as of this encounter Visit Diagnoses Not on filedocumented in this encounter Additional Health Concerns Assessment Noted Time A fall risk assessment has been complete d for the patient 06/04/2024 1:08 PM EST A Body Mass Index follow-up plan has been documented for the patient 06/04/2024 3:17 PM EST documented as of this encounter Care Teams Industrial Gas Servicer Supervisor Relationship Specialty Start Date End Date Gabe Cohen MD [address] [place] [address] [address]1 [address]1 [place] [id number] PCP - General 09/08/20 documented as of this encounter
--- OUTSIDE RECORDS SUMMARY | 2024-10-08 23:06 | XMS_ITS | Encounter Summary ---
Author Organization [facility] Address [address] [place] [address] Care Team Providers Care Workers Compensation Analyst Name Role Phone Gabe Cohen MD Primary Care Provider [phone] Encounter Details Date Type Department Care Team (Latest Contact Info) Description 09/17/2024 Travel Social History Tobacco Use Types Packs/Day [...] EDT Appointment [facility] [address] [place] [address] Isaura Rae 10/22/2024 9:00 AM EDT Appointment [facility] [address] [place] [address] Isaura Rae 10/22/2024 9:45 AM EDT Appointment [facility] [address] [place] [address] Agueda Mccray 11/05/2024 9:00 AM EDT Appointment [facility] [address] [place] [address] Isaura Rae 11/05/2024 9:45 AM EDT Appointment [facility] [address] [place] [address] Agueda Mccray A 11/12/2024 9:00 AM EDT Appointment [facility] [address] [place] [address] Isaura Rae 11/12/2024 9:45 AM EDT Appointment [facility] [address] [place] [address] Agueda Mccray A 11/19/2024 9:00 AM EDT Appointment [facility] [address] [place] [address] Isaura Rae 11/19/2024 9:45 AM EDT Appointment [facility] [address] [place] [address] Agueda Mccray A 11/26/2024 9:00 AM EDT Appointment [facility] [address] [place] [address] Isaura Rae 11/26/2024 9:45 AM EDT Appointment [facility] [address] [place] [address] Agueda Mccray A 12/03/2024 9:00 AM EDT Appointment [facility] [address] [place] [address] Isaura Rae 12/03/2024 9:45 AM EDT Appointment [facility] [address] [place] [address] Agueda Mccray A 12/10/2024 9:00 AM EDT Appointment [facility] [address] [place] [address] Isaura Rae 12/10/2024 9:45 AM EDT Appointment [facility] [address] [place] [address] Agueda Mccray A 12/17/2024 9:00 AM EDT Appointment [facility] [address] [facility] [place] [address] Isaura Rae 12/17/2024 9:45 AM EDT Appointment [facility] [address] [place] [address] Agueda Mccray 12/24/2024 9:00 AM EDT Appointment [facility] [address] [place] [address] Isaura Rae 12/24/2024 9:45 AM EDT Appointment [facility] [address] [place] [address] Agueda Mccray 12/31/2024 9:00 AM EDT Appointment [facility] [address] [place] [address] Isaura Rae 12/31/2024 9:45 AM EDT Appointment [facility] [address] [place] [address] Agueda Mccray 01/07/2025 9:00 AM EDT Appointment [facility] [address] [place] [address] Isaura Rae 01/07/2025 9:45 AM EDT Appointment [facility] [address] [place] [address] Agueda Mccray 01/14/2025 9:00 AM EDT Appointment [facility] [address] [place] [address] Isaura Rae 01/14/2025 9:45 AM EDT Appointment [facility] [address] [place] [address] Agueda Mccray 01/21/2025 9:00 AM EDT Appointment [facility] [address] [place] [address] Isaura Rae 01/21/2025 9:45 AM EDT Appointment [facility] [address] [place] [address] Agueda Mccray documented as of this encounter Visit Diagnoses Not on filedocumented in this encounter Additional Health Concerns Assessment Noted Time A fall risk assessment has been complete d for the patient 06/04/2024 1:08 PM EST A Body Mass Index follow-up plan has been documented for the patient 06/04/2024 3:17 PM EST documented as of this encounter Care Teams Workers Compensation Analyst Relationship Specialty Start Date End Date Gabe Cohen MD [address] [place] [address] [address] [place] [address] PCP - General 09/08/20 documented as of this encounter
--- OUTSIDE RECORDS SUMMARY | 2024-10-08 23:06 | XMS_ITS | Encounter Summary ---
Author Organization [facility] Address [address] [place] [address] Care Team Providers Care Purchasing Engineer Name Role Phone Gabe Cohen MD Primary Care Provider [phone] Encounter Details Date Type Department Care Team (Latest Contact Info) Description 09/24/2024 Travel Social History Tobacco Use Types Packs/Day [...] EDT Appointment [facility] [address] [place] [address] Isaura Rae 10/22/2024 9:00 AM EDT Appointment [facility] [address] [place] [address] Isaura Rae 10/22/2024 9:45 AM EDT Appointment [facility] [address] [place] [address] Agueda Mccray 11/05/2024 9:00 AM EDT Appointment [facility] [address] [place] [address] Isaura Rae 11/05/2024 9:45 AM EDT Appointment [facility] [address] [place] [address] Agueda Mccray A 11/12/2024 9:00 AM EDT Appointment [facility] [address] [place] [address] Isaura Rae 11/12/2024 9:45 AM EDT Appointment [facility] [address] [place] [address] Agueda Mccray A 11/19/2024 9:00 AM EDT Appointment [facility] [address] [place] [address] Isaura Rae 11/19/2024 9:45 AM EDT Appointment [facility] [address] [place] [address] Agueda Mccray A 11/26/2024 9:00 AM EDT Appointment [facility] [address] [place] [address] Isaura Rae 11/26/2024 9:45 AM EDT Appointment [facility] [address] [place] [address] Agueda Mccray A 12/03/2024 9:00 AM EDT Appointment [facility] [address] [place] [address] Isaura Rae 12/03/2024 9:45 AM EDT Appointment [facility] [address] [place] [address] Agueda Mccray A 12/10/2024 9:00 AM EDT Appointment [facility] [address] [place] [address] Isaura Rae 12/10/2024 9:45 AM EDT Appointment [facility] [address] [place] [address] Agueda Mccray A 12/17/2024 9:00 AM EDT Appointment [facility] [address] [place] [address] Isaura Rae 12/17/2024 9:45 AM EDT Appointment [facility] [address] [place] [address] Agueda Mccray 12/24/2024 9:00 AM EDT Appointment [facility] [address] [place] [address] Isaura Rae 12/24/2024 9:45 AM EDT Appointment [facility] [address] [place] [address] Agueda Mccray 12/31/2024 9:00 AM EDT Appointment [facility] [address] [place] [address] Isaura Rae 12/31/2024 9:45 AM EDT Appointment [facility] [address] [place] [address] Agueda Mccray 01/07/2025 9:00 AM EDT Appointment [facility] [address] [place] [address] Isaura Rae 01/07/2025 9:45 AM EDT Appointment [facility] [address] [place] [address] Agueda Mccray 01/14/2025 9:00 AM EDT Appointment [facility] [address] [place] [address] Isaura Rae 01/14/2025 9:45 AM EDT Appointment [facility] [address] [place] [address] Agueda Mccray 01/21/2025 9:00 AM EDT Appointment [facility] [address] [place] [address] Isaura Rae 01/21/2025 9:45 AM EDT Appointment [facility] [address] [place] [address] Agueda Mccray documented as of this encounter Visit Diagnoses Not on filedocumented in this encounter Additional Health Concerns Assessment Noted Time A fall risk assessment has been complete d for the patient 06/04/2024 1:08 PM EST A Body Mass Index follow-up plan has been documented for the patient 06/04/2024 3:17 PM EST documented as of this encounter Care Teams Purchasing Engineer Relationship Specialty Start Date End Date Gabe Cohen MD [address] [place] [address] [address] [place] [address] PCP - General 09/08/20 documented as of this encounter
--- OUTSIDE RECORDS SUMMARY | 2024-10-08 23:06 | XMS_ITS | Encounter Summary ---
Author Organization [facility] Address [address] [place] [address] Care Team Providers Care Grinder Hardboard Name Role Phone Gabe Cohen MD Primary Care Provider Reason for Visit * Reason Onset Date Comments HCN - Patient Message 08/23/2024 Encounter Details Date Type Department Care Team (Late st Contact Info) Description 08/23/2024 Telephone [facility] Interventional Pain Medicine [address] [facility] [place] [address] Luis Murray MD [address] [facility] [address] [place] [address] HCN - Patient Message Social History Tobacco Use Types Packs/Day Years Used Date Smoking Tobacco: Never Smokeless Tobacco: Never Comments Unknown Sex and Gender Information Value Date Recorded Sex Assigned at Female 04/01/2024 1:10 PM EST Legal Sex Female 7:39 PM EDT Gender Identity Female 04/01/2024 1:10 PM EST Sexual Orientation Straight 04/01/2024 1: 10 PM EST documented as of this encounter Miscellaneous Notes * Telephone Encounter - Ofelia Vaughan - 08/25/2024 1:29 PM EDT I have sent patient a message in My Own [facility] * Telephone Encounter - Maurice Ryan - 08/23/2024 3:53 PM EDT Clinical Concern/Question Reason for Call: Dr. Murray pt is requesting a call back from Ofelia to confirm receipt and status of insurance documentation. Pt referred to [facility] form . Best contact number: [phone] (home) Optimal time of day to reach caller: OTHER: after 9:00 am Additional comments/information from caller: None Note: Please do not reply to this message. Follow-up communication and further actions as a result of this message need to be communicated with the patient directly, if the patient is not active onMyChart. If the patient is active on MyChart, they will receive notification of the communication/outcome via MyChart. documented in this encounter Plan of Treatment Upcoming Encounters Date Type Department Care Team (Late st Contact Info) Description 10/15/2024 9:00 AM EDT Appointment [facility] [address] [place] [address] Isaura Rae 10/22/2024 9:00 AM EDT Appointment [facility] [address] [place] [address] Isaura Rae 10/22/2024 9:45 AM EDT Appointment [facility] [address] [place] [address] Agueda Mccray 11/05/2024 9:00 AM EDT Appointment [facility] [address] [place] [address] Isaura Rae 11/05/2024 9:45 AM EDT Appointment [facility] [address] [place] [address] Agueda Mccray A 11/12/2024 9:00 AM EDT Appointment [facility] [address] [place] [address] Isaura Rae 11/12/2024 9:45 AM EDT Appointment [facility] [address] [place] [address] Agueda Mccray A 11/19/2024 9:00 AM EDT Appointment [facility] [address] [place] [address] Isaura Rae 11/19/2024 9:45 AM EDT Appointment [facility] [address] [place] [address] Agueda Mccray A 11/26/2024 9:00 AM EDT Appointment [facility] [address] [place] [address] Isaura Rae 11/26/2024 9:45 AM EDT Appointment [facility] [address] [place] [address] Agueda Mccray 12/03/2024 9:00 AM EDT Appointment [facility] [address] [place] [address] Isaura Rae 12/03/2024 9:45 AM EDT Appointment [facility] [address] [place] [address] Agueda Mccray A 12/10/2024 9:00 AM EDT Appointment [facility] [address] [place] [address] Isaura Rae 12/10/2024 9:45 AM EDT Appointment [facility] [address] [place] [address] Agueda Mccray A 12/17/2024 9:00 AM EDT Appointment [facility] [address] [place] [address] Isaura Rae 12/17/2024 9:45 AM EDT Appointment [facility] [address] [place] [address] Agueda Mccray A 12/24/2024 9:00 AM EDT Appointment [facility] [address] [place] [address] Isaura Rae 12/24/2024 9:45 AM EDT Appointment [facility] [address] [place] [address] Agueda Mccray A 12/31/2024 9:00 AM EDT Appointment [facility] [address] [place] [address] Isaura Rae 12/31/2024 9:45 AM EDT Appointment [facility] [address] [place] [address] Agueda Mccray A 01/07/2025 9:00 AM EDT Appointment [facility] [address] [place] [address] Isaura Rae 01/07/2025 9:45 AM EDT Appointment [facility] [address] [place] [address] Agueda Mccray 01/14/2025 9:00 AM EDT Appointment [facility] [address] [place] [address] Isaura Rae 01/14/2025 9:45 AM EDT Appointment [facility] [address] [place] [address] Agueda Mccray 01/21/2025 9:00 AM EDT Appointment [facility] [address] [place] [address] Isaura Rae 01/21/2025 9:45 AM EDT Appointment [facility] [address] [place] [address] Agueda Mccray documented as of this encounter Visit Diagnoses Not on filedocumented in this encounter Additional Health Concerns Assessment Noted Time A fall risk assessment has been complete d for the patient 06/04/2024 1:08 PM EST A Body Mass Index follow-up plan has been documented for the patient 06/04/2024 3:17 PM EST documented as of this encounter Care Teams Grinder Hardboard Relationship Specialty Start Date End Date Gabe Cohen MD [address] [place] [address] [address] [place] [address] PCP - General 09/08/20 documented as of this encounter
--- OUTSIDE RECORDS SUMMARY | 2024-10-08 23:06 | XMS_ITS | Encounter Summary ---
Author Organization [facility] [place] [facility] Address [address] [place] [address] Care Team Providers Care Laserist Name Role Phone Gabe Cohen MD Primary Care Provider [phone] Encounter Details Date Type Department Care Team (Latest Contact Info) Description 08/27/2024 Travel Social History Tobacco Use Types Packs/Day [...] EDT Appointment [facility] [address] [place] [address] Isaura Rae 10/22/2024 9:00 AM EDT Appointment [facility] [address] [place] [address] Isaura Rae 10/22/2024 9:45 AM EDT Appointment [facility] [address] [place] [address] Agueda Mccray 11/05/2024 9:00 AM EDT Appointment [facility] [address] [place] [address] Isaura Rae 11/05/2024 9:45 AM EDT Appointment [facility] [address] [place] [address] Agueda Mccray A 11/12/2024 9:00 AM EDT Appointment [facility] [address] [place] [address] Isaura Rae 11/12/2024 9:45 AM EDT Appointment [facility] [address] [place] [address] Agueda Mccray A 11/19/2024 9:00 AM EDT Appointment [facility] [address] [place] [address] Isaura Rae 11/19/2024 9:45 AM EDT Appointment [facility] [address] [place] [address] Agueda Mccray A 11/26/2024 9:00 AM EDT Appointment [facility] [address] [place] [address] Isaura Rae 11/26/2024 9:45 AM EDT Appointment [facility] [address] [place] [address] Agueda Mccray A 12/03/2024 9:00 AM EDT Appointment [facility] [address] [place] [address] Isaura Rae 12/03/2024 9:45 AM EDT Appointment [facility] [address] [place] [address] Agueda Mccray A 12/10/2024 9:00 AM EDT Appointment [facility] [address] [place] [address] Isaura Rae 12/10/2024 9:45 AM EDT Appointment [facility] [address] [place] [address] Agueda Mccray A 12/17/2024 9:00 AM EDT Appointment [facility] [address] [facility] [place] [address] Isaura Rae 12/17/2024 9:45 AM EDT Appointment [facility] [address] [place] [address] Agueda Mccray 12/24/2024 9:00 AM EDT Appointment [facility] [address] [place] [address] Isaura Rae 12/24/2024 9:45 AM EDT Appointment [facility] [address] [place] [address] Agueda Mccray 12/31/2024 9:00 AM EDT Appointment [facility] [address] [place] [address] Isaura Rae 12/31/2024 9:45 AM EDT Appointment [facility] [address] [place] [address] Agueda Mccray 01/07/2025 9:00 AM EDT Appointment [facility] [address] [place] [address] Isaura Rae 01/07/2025 9:45 AM EDT Appointment [facility] [address] [place] [address] Agueda Mccray 01/14/2025 9:00 AM EDT Appointment [facility] [address] [place] [address] Isaura Rae 01/14/2025 9:45 AM EDT Appointment [facility] [address] [place] [address] Agueda Mccray 01/21/2025 9:00 AM EDT Appointment [facility] [address] [place] [address] Isaura Rae 01/21/2025 9:45 AM EDT Appointment [facility] [address] [place] [address] Agueda Mccray documented as of this encounter Visit Diagnoses Not on filedocumented in this encounter Additional Health Concerns Assessment Noted Time A fall risk assessment has been complete d for the patient 06/04/2024 1:08 PM EST A Body Mass Index follow-up plan has been documented for the patient 06/04/2024 3:17 PM EST documented as of this encounter Care Teams Laserist Relationship Specialty Start Date End Date Gabe Cohen MD [address] [place] [address] [address] [place] [address] PCP - General 09/08/20 documented as of this encounter
--- OUTSIDE RECORDS SUMMARY | 2024-10-08 23:06 | XMS_ITS | Encounter Summary ---
Author Organization [facility] Address [address] [place] [address] Care Team Providers Care Outpatient Pharmacy Manager Name Role Phone Mar Patterson Primary Care Provider [phone] Encounter Details Date Type Department Care Team (Late st Contact Info) Description 08/08/2020 Transcribed Document [facility] Family Medicine Replaced by [facility] [place] [address] ProviderJustin MD [address] [place] [place], [place] [address] Social History Tobacco Use Types Packs/Day Years Used Date Smoking Tobacco: Never Assessed Comments Unknown Sex and Gender Information Value Date Recorded Sex Assigned at Female 06/22/2023 6:15 PM GRINDER OPERATOR TOOL Legal Sex Female 5:55 PM CDT Gender Identity Female 06/22/2023 6:15 PM GRINDER OPERATOR TOOL Sexual Orientation Straight 06/22/2023 6: 15 PM GRINDER OPERATOR TOOL documented as of this encounter Miscellaneous Notes * Cerner Conversion Note - Historical ProviderMD - 08/08/2020 4:08 PM CDT ED Discharge Entered On: 08/08/2020 16:09 EDT Performed On: 08/08/2020 16:08 EDT by Kenyatta Miles Flex Team Cellar Pumper Process Patient Disposition : Other: Kenyatta Miles Flex Team Rn - 08/08/2020 16:08 EDT ED Discharge Discharge To : Other: registered in error Kenyatta Miles Flex Team Rn - 08/08/2020 16:08 EDT documented in this encounter Plan of Treatment Not on file documented as of this encounter Visit Diagnoses Not on filedocumented in this encounter Care Teams Outpatient Pharmacy Manager Relationship Specialty Start Date End Date Mar Patterson [address] [place] [address] PCP - General 02/26/22 documented as of this encounter
--- OUTSIDE RECORDS SUMMARY | 2024-10-08 23:06 | XMS_ITS | Encounter Summary ---
Author Organization [facility] Address [address] [place] [address] Care Team Providers Care Waiter/Waitress Name Role Phone Gabe Cohen MD Primary Care Provider [phone] Reason for Visit * Reason Comments Med Refill Encounter Details Date Type Department Care Team (Late st Contact Info) Description 06/10/2023 Refill [facility] Interventional Pain Medicine [address] [place] [address] Isaura May, DO [address] [place] [address] Complex regional pain syndrome type 1 of left upper extremity Social History Tobacco Use Types Packs/Day Years [...] EDT Appointment [facility] [address] [place] [address] Isaura Rae 10/22/2024 9:00 AM EDT Appointment [facility] [address] [place] [address] Isaura Rae 10/22/2024 9:45 AM EDT [facility] [address] [place] [address] Shazia, Agueda A 11/05/2024 9:00 AM EDT Appointment [facility] [address] [place] [address] Isaura Rae 11/05/2024 9:45 AM EDT Appointment [facility] [address] [place] [address] Agueda Mccray A 11/12/2024 9:00 AM EDT Appointment [facility] [address] [place] [address] Isaura Rae 11/12/2024 9:45 AM EDT Appointment [facility] [address] [place] [address] Agueda Mccray A 11/19/2024 9:00 AM EDT Appointment [facility] [address] [place] [address] Isaura Rae 11/19/2024 9:45 AM EDT Appointment [facility] [address] [place] [address] Agueda Mccray A 11/26/2024 9:00 AM EDT Appointment [facility] [address] [place] [address] Isaura Rae 11/26/2024 9:45 AM EDT Appointment [facility] [address] [place] [address] Shazia, Agueda A 12/03/2024 9:00 AM EDT Appointment [facility] [address] [place] [address] Isaura Rae 12/03/2024 9:45 AM EDT Appointment [facility] [address] [place] [address] Amelie Mccrayekah A 12/10/2024 9:00 AM EDT Appointment [facility] [address] [place] [address] Isaura Rae 12/10/2024 9:45 AM EDT Appointment [facility] [address] [place] [address] Agueda Mccray A 12/17/2024 9:00 AM EDT Appointment [facility] [address] [place] [address] Isaura Rae 12/17/2024 9:45 AM EDT Appointment [facility] [address] [place] [address] Agueda Mccray A 12/24/2024 9:00 AM EDT Appointment [facility] [address] [place] [address] Isaura Rae 12/24/2024 9:45 AM EDT Appointment [facility] [address] [place] [address] Agueda Mccray A 12/31/2024 9:00 AM EDT Appointment [facility] [address] [place] [address] Isaura Rae 12/31/2024 9:45 AM EDT Appointment [facility] [address] [place] [address] Agueda Mccray A 01/07/2025 9:00 AM EDT Appointment [facility] [address] [place] [address] Isaura Rae 01/07/2025 9:45 AM EDT Appointment [facility] [address] [place] [address] Agueda Mccray A 01/14/2025 9:00 AM EDT Appointment [facility] [address] [place] [address] Isaura Rae 01/14/2025 9:45 AM EDT Appointment [facility] [address] [place] [address] Agueda Mccray 01/21/2025 9:00 AM EDT Appointment [facility] [address] [place] [address] Isaura Rae 01/21/2025 9:45 AM EDT Appointment [facility] [address] [place] [address] Agueda Mccray documented as of this encounter Visit Diagnoses Diagnosis Complex regional pain syndrome type 1 of left upper extremity Complex regional pain syndrome type 1 of left upper extremity- Primary Complex regional pain syndrome type 1 of left upper extremity- Primary documented in this encounter Additional Health Concerns Assessment Noted Time A fall risk assessment has been complete d for the patient 05/06/2023 1:12 PM EST A Body Mass Index follow-up plan has been documented for the patient 05/06/2023 3:08 PM EST documented as of this encounter Care Teams Waiter/Waitress Relationship Specialty Start Date End Date Gabe Cohen MD [address] [place] [address] [address] [place] [address] PCP - General 09/08/20 documented as of this encounter
--- OUTSIDE RECORDS SUMMARY | 2024-10-08 23:06 | XMS_ITS | Encounter Summary ---
Author Organization [facility] Address [address] [place] [address] Care Team Providers Care Senior Software Qa Engineer Name Role Phone Gabe Cohen MD Primary Care Provider [phone] Encounter Details Date Type Department Care Team (Latest Contact Info) Description 10/01/2024 Travel Social History Tobacco Use Types Packs/Day [...] EDT Appointment [facility] [address] [place] [address] Isaura Rae 10/22/2024 9:00 AM EDT Appointment [facility] [address] [place] [address] Isaura Rae 10/22/2024 9:45 AM EDT Appointment [facility] [address] [place] [address] Agueda Mccray 11/05/2024 9:00 AM EDT Appointment [facility] [address] [place] [address] Isaura Rae 11/05/2024 9:45 AM EDT Appointment [facility] [address] [place] [address] Agueda Mccray A 11/12/2024 9:00 AM EDT Appointment [facility] [address] [place] [address] Isaura Rae 11/12/2024 9:45 AM EDT Appointment [facility] [address] [place] [address] Agueda Mccray A 11/19/2024 9:00 AM EDT Appointment [facility] [address] [place] [address] Isaura Rae 11/19/2024 9:45 AM EDT Appointment [facility] [address] [place] [address] Agueda Mccray A 11/26/2024 9:00 AM EDT Appointment [facility] [address] [place] [address] Isaura Rae 11/26/2024 9:45 AM EDT Appointment [facility] [address] [place] [address] Agueda Mccray A 12/03/2024 9:00 AM EDT Appointment [facility] [address] [place] [address] Isaura Rae 12/03/2024 9:45 AM EDT Appointment [facility] [address] [place] [address] Agueda Mccray A 12/10/2024 9:00 AM EDT Appointment [facility] [address] [place] [address] Isaura Rae 12/10/2024 9:45 AM EDT Appointment [facility] [address] [place] [address] Agueda Mccray A 12/17/2024 9:00 AM EDT Appointment [facility] [address] [place] [address] Isaura Rae 12/17/2024 9:45 AM EDT Appointment [facility] [address] [place] [address] Agueda Mccray 12/24/2024 9:00 AM EDT Appointment [facility] [address] [place] [address] Isaura Rae 12/24/2024 9:45 AM EDT Appointment [facility] [address] [place] [address] Agueda Mccray 12/31/2024 9:00 AM EDT Appointment [facility] [address] [place] [address] Isaura Rae 12/31/2024 9:45 AM EDT Appointment [facility] [address] [place] [address] Agueda Mccray 01/07/2025 9:00 AM EDT Appointment [facility] [address] [place] [address] Isaura Rae 01/07/2025 9:45 AM EDT Appointment [facility] [address] [place] [address] Agueda Mccray 01/14/2025 9:00 AM EDT Appointment [facility] [address] [place] [address] Isaura Rae 01/14/2025 9:45 AM EDT Appointment [facility] [address] [place] [address] Agueda Mccray 01/21/2025 9:00 AM EDT Appointment [facility] [address] [place] [address] Isaura Rae 01/21/2025 9:45 AM EDT Appointment [facility] [address] [place] [address] Agueda Mccray documented as of this encounter Visit Diagnoses Not on filedocumented in this encounter Additional Health Concerns Assessment Noted Time A fall risk assessment has been complete d for the patient 06/04/2024 1:08 PM EST A Body Mass Index follow-up plan has been documented for the patient 06/04/2024 3:17 PM EST documented as of this encounter Care Teams Senior Software Qa Engineer Relationship Specialty Start Date End Date Gabe Cohen MD [address] [place] [address] [address] [place] [address] PCP - General 09/08/20 documented as of this encounter
--- OUTSIDE RECORDS SUMMARY | 2024-10-08 23:07 | XMS_ITS | Encounter Summary ---
Author Organization [facility] Address [address] [place] [address] Care Team Providers Care Intertype Operator Name Role Phone Gabe Cohen MD Primary Care Provider [phone] Encounter Details Date Type Department Care Team (Latest Contact Info) Description 08/20/2024 Travel Social History Tobacco Use Types Packs/Day [...] EDT Appointment [facility] [address] [place] [address] Isaura Rae 10/22/2024 9:00 AM EDT Appointment [facility] [address] [place] [address] Isaura Rae 10/22/2024 9:45 AM EDT Appointment [facility] [address] [place] [address] Agueda Mccray 11/05/2024 9:00 AM EDT Appointment [facility] [address] [place] [address] Isaura Rae 11/05/2024 9:45 AM EDT Appointment [facility] [address] [place] [address] Agueda Mccray A 11/12/2024 9:00 AM EDT Appointment [facility] [address] [place] [address] Isaura Rae 11/12/2024 9:45 AM EDT Appointment [facility] [address] [place] [address] Agueda Mccray A 11/19/2024 9:00 AM EDT Appointment [facility] [address] [place] [address] Isaura Rae 11/19/2024 9:45 AM EDT Appointment [facility] [address] [place] [address] Agueda Mccray A 11/26/2024 9:00 AM EDT Appointment [facility] [address] [place] [address] Isaura Rae 11/26/2024 9:45 AM EDT Appointment [facility] [address] [place] [address] Agueda Mccray A 12/03/2024 9:00 AM EDT Appointment [facility] [address] [place] [address] Isaura Rae 12/03/2024 9:45 AM EDT Appointment [facility] [address] [place] [address] Agueda Mccray A 12/10/2024 9:00 AM EDT Appointment [facility] [address] [place] [address] Isaura Rae 12/10/2024 9:45 AM EDT Appointment [facility] [address] [place] [address] Agueda Mccray A 12/17/2024 9:00 AM EDT Appointment [facility] [address] [place] [address] Isaura Rae 12/17/2024 9:45 AM EDT Appointment [facility] [address] [place] [address] Agueda Mccray 12/24/2024 9:00 AM EDT Appointment [facility] [address] [place] [address] Isaura Rae 12/24/2024 9:45 AM EDT Appointment [facility] [address] [place] [address] Agueda Mccray 12/31/2024 9:00 AM EDT Appointment [facility] [address] [place] [address] Isaura Rae 12/31/2024 9:45 AM EDT Appointment [facility] [address] [place] [address] Agueda Mccray 01/07/2025 9:00 AM EDT Appointment [facility] [address] [place] [address] Isaura Rae 01/07/2025 9:45 AM EDT Appointment [facility] [address] [place] [address] Agueda Mccray 01/14/2025 9:00 AM EDT Appointment [facility] [address] [place] [address] Isaura Rae 01/14/2025 9:45 AM EDT Appointment [facility] [address] [place] [address] Agueda Mccray 01/21/2025 9:00 AM EDT Appointment [facility] [address] [place] [address] Isaura Rae 01/21/2025 9:45 AM EDT Appointment [facility] [address] [place] [address] Agueda Mccray documented as of this encounter Visit Diagnoses Not on filedocumented in this encounter Additional Health Concerns Assessment Noted Time A fall risk assessment has been complete d for the patient 06/04/2024 1:08 PM EST A Body Mass Index follow-up plan has been documented for the patient 06/04/2024 3:17 PM EST documented as of this encounter Care Teams Intertype Operator Relationship Specialty Start Date End Date Gabe Cohen MD [address] [place] [address] [address] [place] [address] PCP - General 09/08/20 documented as of this encounter
--- OUTSIDE RECORDS SUMMARY | 2024-10-08 23:07 | XMS_ITS | Encounter Summary ---
Author Organization [facility] Address [address] [place] [address] Care Team Providers Care Air Sealing Technician Name Role Phone Gabe Cohen MD Primary Care Provider [phone] Encounter Details Date Type Department Care Team (Latest Contact Info) Description 08/13/2024 Travel Social History Tobacco Use Types Packs/Day [...] EDT Appointment [facility] [address] [place] [address] Isaura Rae 10/22/2024 9:00 AM EDT Appointment [facility] [address] [place] [address] Isaura Rae 10/22/2024 9:45 AM EDT Appointment [facility] [address] [place] [address] Agueda Mccray 11/05/2024 9:00 AM EDT Appointment [facility] [address] [place] [address] Isaura Rae 11/05/2024 9:45 AM EDT Appointment [facility] [address] [place] [address] Agueda Mccray A 11/12/2024 9:00 AM EDT Appointment [facility] [address] [place] [address] Isaura Rae 11/12/2024 9:45 AM EDT Appointment [facility] [address] [place] [address] Agueda Mccray A 11/19/2024 9:00 AM EDT Appointment [facility] [address] [place] [address] Isaura Rae 11/19/2024 9:45 AM EDT Appointment [facility] [address] [place] [address] Agueda Mccray A 11/26/2024 9:00 AM EDT Appointment [facility] [address] [place] [address] Isaura Rae 11/26/2024 9:45 AM EDT Appointment [facility] [address] [place] [address] Agueda Mccray A 12/03/2024 9:00 AM EDT Appointment [facility] [address] [place] [address] Isaura Rae 12/03/2024 9:45 AM EDT Appointment [facility] [address] [place] [address] Agueda Mccray A 12/10/2024 9:00 AM EDT Appointment [facility] [address] [place] [address] Isaura Rae 12/10/2024 9:45 AM EDT Appointment [facility] [address] [place] [address] Agueda Mccray A 12/17/2024 9:00 AM EDT Appointment [facility] [address] [place] [address] Isaura Rae 12/17/2024 9:45 AM EDT Appointment [facility] [address] [place] [address] Agueda Mccray 12/24/2024 9:00 AM EDT Appointment [facility] [address] [place] [address] Isaura Rae 12/24/2024 9:45 AM EDT Appointment [facility] [address] [place] [address] Agueda Mccray 12/31/2024 9:00 AM EDT Appointment [facility] [address] [place] [address] Isaura Rae 12/31/2024 9:45 AM EDT Appointment [facility] [address] [place] [address] Agueda Mccray 01/07/2025 9:00 AM EDT Appointment [facility] [address] [place] [address] Isaura Rae 01/07/2025 9:45 AM EDT Appointment [facility] [address] [place] [address] Agueda Mccray 01/14/2025 9:00 AM EDT Appointment [facility] [address] [place] [address] Isaura Rae 01/14/2025 9:45 AM EDT Appointment [facility] [address] [place] [address] Agueda Mccray 01/21/2025 9:00 AM EDT Appointment [facility] [address] [place] [address] Isaura Rae 01/21/2025 9:45 AM EDT Appointment [facility] [address] [place] [address] Agueda Mccray documented as of this encounter Visit Diagnoses Not on filedocumented in this encounter Additional Health Concerns Assessment Noted Time A fall risk assessment has been complete d for the patient 06/04/2024 1:08 PM EST A Body Mass Index follow-up plan has been documented for the patient 06/04/2024 3:17 PM EST documented as of this encounter Care Teams Air Sealing Technician Relationship Specialty Start Date End Date Gabe Cohen MD [address] [place] [address] [address] [place] [address] PCP - General 09/08/20 documented as of this encounter
--- OUTSIDE RECORDS SUMMARY | 2024-10-08 23:07 | XMS_ITS | Clinical Summary ---
Author Organization [facility] Address [address] [place] [address] Care Team Providers Care Polisher Numeral Name Role Phone Leonardo Mar Primary Care Provider [phone] Allergies Active Allergy Reactions Criticality Noted Date Comments Doxycycline 03/13/2022 Cefdinir 03/13/2022 Penicillin 02/26/2022 Sulfa (Sulfonamide Antibiotics) 04/2021 Medications spironolactone-h ydroCHLOROthiazi de (ALDACTAZIDE) 25-25 mg per tablet Take 1 tablet by mouth daily. Active gemfibroziL (LOPID) 600 MG tablet Take 600 mg by mouth 2 (two) times daily before meals. Active Active Problems No known active problems Family History Medical History Relation Name Comments Diabetes Father Hypertension Father Lung cancer Maternal Grandfather Lung cancer Maternal Grandmother Arthritis Mother Relation Name Status Comments Father Maternal Grandfather Maternal Grandmother Mother Social History Tobacco Use Types Packs/Day Years Used Date Smoking Tobacco: Never Smokeless Tobacco: Never Tobacco Cessation:Counseling Given: Not Answered Alcohol Use Standard Drinks/Week Comments Not Currently 0 (1 standard drink = 0.6 oz pur e alcohol) Interpersonal Safety Answer Date Record ed Family or friends hurt you Not on file 05/09 Family or friends insult you Not on file 03/2024 Family or friends threaten you Not on file 0 05/09/2023 Family or friends scream or curse at you Not on file 05/09/2023 Housing Stability Answer Date Recorded Living situation today Not on file Living situation problems Not on file 2023 Food Insecurity Answer Date Recorded Food run out past 12 months Not on file 04/28 Food did not last past 12 months Not on file 05/09/2023 Employment Answer Date Recorded Help finding and keeping a job Not on file 0 05/09/2023 Family and Community Support Answer Daniele e Recorded Help with Day to Day Activities Not on file 05/09/2023 Feeling Lonely or Isolated Not on file 05/09 Educational Attainment Answer Date [place] rded Speak language other than [place] at home Not on file 05/09/2023 Want help with school or training Not on file 05/09/2023 Depression Answer Date Recorded PHQ-2 Risk Not on file 05/09/2023 Disabilities Answer Date Recorded Difficulty concentrating Not on file 024 Difficulty doing errands alone Not on file 0 05/09/2023 Substance Use Answer Date Recorded Used prescription meds for non-medical reasons N ot on file 05/09/2023 Used illegal drugs past 12 months Not on file 05/09/2023 Comments Unknown Sex and Gender Information Value Date Recorded Sex Assigned at Female 06/22/2023 6:15 PM TRANSPORTATION LEAD Legal Sex Female 5:55 PM CDT Gender Identity Female 06/22/2023 6:15 PM TRANSPORTATION LEAD Sexual Orientation Straight 06/22/2023 6: 15 PM TRANSPORTATION LEAD Last Filed Vital Signs Vital Sign Reading Time Taken Comments Blood Pressure 141/93 07/02/2023 11:45 AM EST Pulse 105 07/02/2023 11:45 AM EST Temperature - - Respiratory Rate - - Oxygen Saturation - - Inhaled Oxygen Concentration - - Weight 58.1 kg (128 lb) 07/23/2023 2:58 PM EDT Height 157.5 cm (5' 2 ) 07/23/2023 2:58 PM EDT Body Mass Index 23.41 07/23/2023 2:58 PM EDT Plan of Treatment Health Maintenance Due Date Last Done Comments CT Colonography 1970 Colonoscopy 1970 Colorectal Cancer Screening 1970 FOBT/FIT 1970 Fit-DNA (Cologuard) 1970 Sigmoidoscopy 1970 Depression Screening (12+) 1982 HIV Screening 1985 Hepatitis C Screening 1988 Pap Smear 1991 Breast Cancer Screening 2010 Lipid Panel 2015 Pneumococcal 50+ years (1 of 1 - PCV) 2020 Shingles Vaccine (Zoster) (1 of 2) 2020 COVID-19 VACCINE (3 - 2023- season) 12/28/202304/2020, 12/29/2020 Tobacco Cessation Counseling and Screening (12+) 07/22/2024 07/23/2023 Influenza Vaccine (Season Ended) 2024 DTAP/TDAP/TD VACCINES (2 - Td or Tdap) 12/26/[address] [facility] [facility] Advance Directives For more information, please contact: [phone] Documents on File Type Date Recorded Patient River Driver Expl anation Advance Directives and Livin g Will 03/29/2022 9:44 AM Care Teams Polisher Numeral Relationship Specialty Start Date End Date Mar Patterson [facility] [place] [address] PCP - General 02/26/22
--- OUTSIDE RECORDS SUMMARY | 2024-10-08 23:07 | XMS_ITS | Referral Summary ---
Author Organization [facility] Address [address] [place] [address] Care Team Providers Care Marketing Strategy Lead Name Role Phone Leonardo Mar Primary Care Provider [phone] Allergies Active Allergy Reactions Criticality Noted Date Comments Doxycycline 03/13/2022 Cefdinir 03/13/2022 Penicillin 02/26/2022 Sulfa (Sulfonamide Antibiotics) 04/2021 Medications spironolactone-h ydroCHLOROthiazi de (ALDACTAZIDE) 25-25 mg per tablet Take 1 tablet by mouth daily. Active gemfibroziL (LOPID) 600 MG tablet Take 600 mg by mouth 2 (two) times daily before meals. Active Active Problems No known active problems Social History Tobacco Use Types Packs/Day Years [...] Date [place] rded Speak language other than Hungarian at home Not on file 05/09/2023 Want [...] Sex Assigned at Female 06/22/2023 6:15 PM SENIOR SYSTEM OPERATOR Legal Sex Female 5:55 PM CDT Gender Identity Female 06/22/2023 6:15 PM SENIOR SYSTEM OPERATOR Sexual Orientation Straight 06/22/2023 6: 15 PM SENIOR SYSTEM OPERATOR Last Filed Vital Signs Vital Sign Reading [...] 07/23/2023 2:58 PM EDT Plan of Treatment Not on file Insurance [facility] Advance Directives For more information, please contact: [phone] Documents on File Type Date Recorded 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
== END 2024-10-08 23:59 | disposition home or self-care (01) ==
LOC: LAB.DROPOF 23:04
PROVIDERS: PCP Nurse Practitioner Family; Visit Provider Nurse Practitioner Family
DX: R30.0 Dysuria (principal)
CPT/HCPCS: 87086

== ENCOUNTER 2024-11-03 10:31 | Outpatient (CLI) | payer OTHER, SELFPAY ==
--- OUTSIDE RECORDS SUMMARY | 2024-09-03 09:03 | XMS_ITS | Encounter Summary ---
Author Organization [facility] Address [address] [place] [address] Care Team Providers Care Poultry Husbandman Name Role Phone Gabe Cohen MD Primary Care Provider [phone] Reason for Visit * Consultation (Routine) - Authorized Specialty Diagnoses / Procedures Referred By Tanika lao Referred To Contact Occupational Therapy Diagnoses Complex regional pain syndrome I Left arm weakness Herb Stauffer MD [address] [place] [address] Phone: tel: fax: [facility] [address] [place] [address] Phone: tel: fax: Referral ID Status Reason Start Date Expiration Date Visits Requested Visits Authorized [id number] Authorized Consult and Treat 11/11/2023 12/26/2024 1 44 Encounter Details Date Type Department Care Team (Latest Contact Info) Description 09/03/2024 9:03 AM EDT - 09/03/2024 11:59 PM EDT Hospital Encounter [facility] [address] [place] [address] Agueda Mccray Complex regional pain [...] Present: No Patient's Preferred Language for Communication: Italian Field Hockey And Lacrosse Coach: No Subjective Tremor in L thumb this [...] Initial Goal #5 Initial Goal #6 Initial Online Communications Manager Goal Goal Status Date Met Comments Goal [...] Care Team (Late st Contact Info) Description 11/05/2024 9:00 AM EDT Appointment [facility] [address] [place] [address] Isaura Rae 11/05/2024 9:45 AM EDT Appointment [facility] [address] [place] [address] Agueda Mccray 11/12/2024 9:00 AM EDT Appointment [facility] [address] [place] [address] Isaura Rae 11/12/2024 9:45 AM EDT Appointment [facility] [address] [place] [address] Agueda Mccray 11/19/2024 9:00 AM EDT Appointment [facility] [address] [place] [address] Isaura Rae 11/19/2024 9:45 AM EDT Appointment [facility] [address] [place] [address] Agueda Mccray 11/26/2024 9:00 AM EDT Appointment [facility] [address] [place] [address] Isaura Rae 11/26/2024 9:45 AM EDT Appointment [facility] [address] [place] [address] Agueda Mccray 12/03/2024 9:00 AM EDT Appointment [facility] [address] [place] [address] Isaura Rae 12/03/2024 9:45 AM EDT Appointment [facility] [address] [place] [address] Agueda Mccray A 12/10/2024 9:45 AM EDT Appointment [facility] [address] [place] [address] Agueda Mccray A 12/17/2024 9:00 AM EDT Appointment [facility] [address] [place] [address] Isaura Rae 12/17/2024 9:45 AM EDT Appointment [facility] [address] [place] [address] Agueda Mccray A 12/24/2024 9:00 AM EDT Appointment [facility] [address] [place] [address] Isaura Rae 12/24/2024 9:45 AM EDT Appointment [facility] [address] [place] [address] Agueda Mccray A 12/31/2024 9:00 AM EDT Appointment [facility] [address] [place] [address] Isaura Rae 12/31/2024 9:45 AM EDT Appointment [facility] [address] [place] [address] Agueda Mccray A 01/07/2025 9:00 AM EDT Appointment [facility] [address] [place] [address] Isaura Rae 01/07/2025 9:45 AM EDT Appointment [facility] [address] [place] [address] Agueda Mccray A 01/14/2025 9:00 AM EDT Appointment [facility] [address] [place] [address] Isaura Rae 01/14/2025 9:45 AM EDT Appointment [facility] [address] [place] [address] Agueda Mccray 01/21/2025 9:00 AM EDT Appointment [facility] [address] [place] [address] Isaura Rae 01/21/2025 9:45 AM EDT Appointment [facility] [address] [place] [address] Agueda Mccray documented as of this encounter [...] documented as of this encounter Care Teams Poultry Husbandman Relationship Specialty Start Date End Date Gabe Cohen MD [address] [place] [address] #1 #1 RAZ Ann [id number] PCP - General 09/08/20 documented as of this encounter
--- OUTSIDE RECORDS SUMMARY | 2024-09-17 08:57 | XMS_ITS | Encounter Summary ---
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 [address] [place] [address] Agueda Mccray A 12/31/2024 9:00 AM EDT Appointment [facility] [address] [place] [address] Isaura Rae 12/31/2024 9:45 AM EDT Appointment [facility] [address] [place] [address] Agueda Mccray A 01/07/2025 9:00 AM EDT Appointment [facility] [address] [place] [address] Isaura Rae 01/07/2025 9:45 AM EDT Appointment [facility] [address] [place] [address] Agueda Mccray A 01/14/2025 9:00 AM EDT Appointment [facility] [address] [place] [address] Isaura Rae 01/14/2025 9:45 AM EDT Appointment [facility] [address] [place] [address] Agueda Mccray A 01/21/2025 9:00 AM EDT Appointment [facility] [address] [place] [address] Isaura Rae 01/21/2025 9:45 AM EDT Appointment [facility] [address] [place] [address] Agueda Mccray A documented as of this encounter Visit Diagnoses [...] documented as of this encounter Care Teams Abrasive Mixer Relationship Specialty Start Date End Date Gabe Cohen MD [address] [place] [address] #1 #1 [place] Ann [address] PCP - General 09/08/20 documented as of this encounter
--- OUTSIDE RECORDS SUMMARY | 2024-09-17 08:57 | XMS_ITS | Encounter Summary ---
Author Organization [facility] Address [address] [place] [address] Care Team Providers Care Boat Mechanic Name Role Phone Gabe Cohen MD Primary Care Provider [phone] Reason for Visit * Consultation (Routine) - Authorized Specialty Diagnoses / Procedures Referred By Tanika lao Referred To Contact Physical Therapy Diagnoses Complex regional pain syndrome I Left arm weakness Herb Stauffer MD [address] [place] [address] Phone: tel: fax: [facility] [address] [place] [address] Phone: tel: fax: Referral ID Status Reason Start Date Expiration Date Visits Requested Visits Authorized [id number] Authorized Consult and Treat 11/11/2023 12/26/2024 1 39 Encounter Details Date Type Department Care Team (Latest Contact Info) Description 09/17/2024 8:57 AM EDT - 09/17/2024 11:59 PM EDT Hospital Encounter [facility] [address] [place] [address] Isaura Rae Complex regional pain [...] * Progress Notes - Isaura Rae - 09/17/2024 9:00 AM EDT Physical Therapy PT Daily Treatment Note DATE: 09/17/24 NAME: Radha Gabriel Date of : 1970 Therapist: Isaura Rae Subjective Patient reporting she is recovering from viral illness and poison sumac exposure, but overall is recovered and ready to get to work. Asks to ride the bike and work on some balance activities today. Treatment/Objective Assessment: Activity Reps/Timing Comments Smooth Pursuits [...] Soccer ball heading Ball tilting Balance Bubble PT providing SBA and support with cues for spatial orientation. Virtual Reality Head Set Games: Lean Into the [place]-critter find Candy[place]-critter find Robot Find with binaural sound Patient wearing headset with far less avoidance of tactile and pressure stimulation to left side of face and head today. Much improved left head rotation and side bending without pain this date. Noted increased difficulty with locating sounds in left ear/left side. Balance Beam 10 reps with walking and single leg balance with leg swings Nail Kosovan to right hand by PT and left thumbnail by patient. Completed as written this . Recumbent Bike 10 minutes, BLE, self paced, level 1 No complaint of hip pain or increased LUE pain today. Education Today's Treatment Needs Communication Device: No [...] start See HEP sheet given Access Code: [email or web address] URL: [email or web address] Date: 07/17/2023 Prepared by: Shayna Flores Program [...] sets - 10 reps - Supine Hamstring Burmese Ball Curls/Dynamic Mobilization - 1 x daily - 2 x weekly - 2 sets - 10 reps - Bridge with Heels on Burmese Ball - 1 x daily - 2 x weekly - 2 sets - 10 reps Assessment Patient was able to apply nail citizen of [place] to left thumbnail today and demonstrated improved tolerance to balance and LE bike this date. Patient completed Mod CTSIB assessment showing decreased [...] her cervical spine. Goal Met - 6 Mcc Goals (12 weeks) Pt will be able to improve tolerance to App[place] Wizpert Bike Test by 4 stages to demonstrate [...] of Care Written by Isaura Rae on 09/17/24 at 9:19 AM documented in this encounter Plan of Treatment Upcoming Encounters Date Type Department Care Team (Late st Contact Info) Description 11/05/2024 9:00 AM EDT Appointment [facility] [address] [place] [address] Isaura Rae 11/05/2024 9:45 AM EDT Appointment [facility] [address] [place] [address] Agueda Mccray 11/12/2024 9:00 AM EDT [facility] [address] [place] [address] Isaura Rae 11/12/2024 9:45 AM EDT [facility] [address] [place] [address] Agueda Mccray 11/19/2024 9:00 AM EDT Appointment [facility] [address] [place] [address] Isaura Rae 11/19/2024 9:45 AM EDT Appointment [facility] [address] [place] [address] Agueda Mccray A 11/26/2024 9:00 AM EDT Appointment [facility] [address] [place] [address] Isaura Rae 11/26/2024 9:45 AM EDT Appointment [facility] [address] [place] [address] Agueda Mccray A 12/03/2024 9:00 AM EDT Appointment [facility] [address] [place] [address] Isaura Rae 12/03/2024 9:45 AM EDT Appointment [facility] [address] [place] [address] Agueda Mccray A 12/10/2024 9:45 AM EDT Appointment [facility] [address] [place] [address] Agueda Mccray 12/17/2024 9:00 AM EDT Appointment [facility] [address] [place] [address] Isaura Rae 12/17/2024 9:45 AM EDT Appointment [facility] [address] [place] [address] Agueda Mccray A 12/24/2024 9:00 AM EDT Appointment [facility] [address] [place] [address] Isaura Rae 12/24/2024 9:45 AM EDT Appointment [facility] [address] [place] [address] Agueda Mccray A 12/31/2024 9:00 AM EDT Appointment [facility] [address] [place] [address] Isaura Rae 12/31/2024 9:45 AM EDT Appointment [facility] [address] [place] [address] Agueda Mccray A 01/07/2025 9:00 AM EDT Appointment [facility] [address] [place] [address] Isaura Rae 01/07/2025 9:45 AM EDT Appointment [facility] [address] [place] [address] Agueda Mccray A 01/14/2025 9:00 AM EDT Appointment [facility] [address] [place] [address] Isaura Rae 01/14/2025 9:45 AM EDT Appointment [facility] [address] [place] [address] Agueda Mccray A 01/21/2025 9:00 AM EDT Appointment [facility] [address] [place] [address] Isaura Rae 01/21/2025 9:45 AM EDT Appointment [facility] [address] [place] [address] Agueda Mccray documented as of this encounter [...] documented as of this encounter Care Teams Boat Mechanic Relationship Specialty Start Date End Date Gabe Cohen MD [address] [place] [address] #1 #1 RAZ Ann [address] PCP - General 09/08/20 documented as of this encounter
--- OUTSIDE RECORDS SUMMARY | 2024-09-24 08:58 | XMS_ITS | Encounter Summary ---
Author Organization [facility] Address [address] [place] [address] Care Team Providers Care Ornamental Iron Worker Helper Name Role Phone Gabe Cohen MD Primary Care Provider [phone] Reason for Visit * Consultation (Routine) - Authorized Specialty Diagnoses / Procedures Referred By Tanika lao Referred To Contact Occupational Therapy Diagnoses Complex regional pain syndrome I Left arm weakness Herb Stauffer MD [address] [place] [address] Phone: tel: fax: [facility] [address] [place] [address] Phone: tel: fax: Referral ID Status Reason Start Date Expiration Date Visits Requested Visits Authorized [id number] Authorized Consult and Treat 11/11/2023 12/26/2024 1 44 Encounter Details Date Type Department Care Team (Latest Contact Info) Description 09/24/2024 8:58 AM EDT - 09/24/2024 8:59 AM EDT Hospital Encounter [facility] [address] [place] [address] Agueda Mccray Complex regional pain [...] Present: No Patient's Preferred Language for Communication: Chinese Senior Report Developer: No Subjective Pt reports in process of [...] Initial Goal #5 Initial Goal #6 Initial Retirement Goal Goal Status Date Met Comments Goal [...] EDT Appointment [facility] [address] [place] [address] Isaura Rae 11/05/2024 9:45 AM EDT Appointment [facility] [address] [place] [address] Agueda Mccray 11/12/2024 9:00 AM EDT Appointment [facility] [address] [place] [address] Isaura Rae 11/12/2024 9:45 AM EDT Appointment [facility] [address] [place] [address] Agueda Mccray 11/19/2024 9:00 AM EDT Appointment [facility] [address] [place] [address] Isaura Rae 11/19/2024 9:45 AM EDT Appointment [facility] [address] [place] [address] Agueda Mccray 11/26/2024 9:00 AM EDT Appointment [facility] [address] [place] [address] Isaura Rae 11/26/2024 9:45 AM EDT Appointment [facility] [address] [place] [address] Agueda Mccray 12/03/2024 9:00 AM EDT Appointment [facility] [address] [place] [address] Isaura Rae 12/03/2024 9:45 AM EDT Appointment [facility] [address] [place] [address] Agueda Mccray 12/10/2024 9:45 AM EDT Appointment [facility] [address] [place] [address] Agueda Mccray A 12/17/2024 9:00 AM EDT Appointment [facility] [address] [place] [address] Isaura Rae 12/17/2024 9:45 AM EDT Appointment [facility] [address] [place] [address] Agueda Mccray A 12/24/2024 9:00 AM EDT Appointment [facility] [address] [place] [address] Isaura Rae 12/24/2024 9:45 AM EDT Appointment [facility] [address] [place] [address] Agueda Mccray A 12/31/2024 9:00 AM EDT Appointment [facility] [address] [place] [address] Isaura Rae 12/31/2024 9:45 AM EDT Appointment [facility] [address] [place] [address] Agueda Mccray A 01/07/2025 9:00 AM EDT Appointment [facility] [address] [place] [address] Isaura Rae 01/07/2025 9:45 AM EDT Appointment [facility] [address] [place] [address] Agueda Mccray A 01/14/2025 9:00 AM EDT Appointment [facility] [address] [place] [address] Isaura Rae 01/14/2025 9:45 AM EDT Appointment [facility] [address] [place] [address] Agueda Mccray A 01/21/2025 9:00 AM EDT Appointment [facility] [address] [place] [address] Isarua Rae 01/21/2025 9:45 AM EDT Appointment [facility] [address] [place] [address] Agueda Mccray documented as of this encounter [...] documented as of this encounter Care Teams Ornamental Iron Worker Helper Relationship Specialty Start Date End Date Gabe Cohen MD [address] [place] [address] #1 #1 [place] [address] PCP - General 09/08/20 documented as of this encounter
--- OUTSIDE RECORDS SUMMARY | 2024-09-24 09:00 | XMS_ITS | Encounter Summary ---
Author Organization [facility] Address [address] [place] [address] Care Team Providers Care Correctional Cook Name Role Phone Gabe Cohen MD Primary Care Provider [phone] Reason for Visit * Consultation (Routine) - Authorized Specialty Diagnoses / Procedures Referred By Tanika lao Referred To Contact Physical Therapy Diagnoses Complex regional pain syndrome I Left arm weakness Herb Stauffer MD [address] [place] [address] Phone: tel: fax: [facility] [address] [place] [address] Phone: tel: fax: Referral ID Status Reason Start Date Expiration Date Visits Requested Visits Authorized [id number] Authorized Consult and Treat 11/11/2023 12/26/2024 1 39 Encounter Details Date Type Department Care Team (Latest Contact Info) Description 09/24/2024 9:00 AM EDT - 09/24/2024 11:59 PM EDT Hospital Encounter [facility] [address] [place] [address] Isaura Rae Complex regional pain [...] * Progress Notes - Isaura Rae - 09/24/2024 9:00 AM EDT Physical Therapy PT Daily Treatment Note DATE: 09/24/24 NAME: Radha Gabriel Date of : 1970 Therapist: Isaura Rae Subjective Patient is changing medications by her report due to GI issues. She is weaning off her previous medthis week, starts new med next week. Stopped the Buspar as well. Treatment/Objective Assessment: Activity Reps/Timing Comments Smooth Pursuits [...] Head Set Games: Lean Into the Music [employer] ASA Beach-critter find CandyLand-critter find Robot Find with binaural sound Patient wearing headset with far less avoidance of tactile and pressure stimulation to left side of face and head today. Much improved left head rotation and side bending without pain this date. Noted increased difficulty with locating sounds in left ear/left side. Balance Beam BITS Activities: Tracing shapes on screen Visual scanning letters only, plain screen on firm surface then repeat on foam pad. 1. Completed 3 rounds 2. 89.66% and 78.79% Recumbent Bike 10 minutes, level 3 No complaint of hip pain or increased [...] start See HEP sheet given Access Code: [email or web address] URL: [email or web address] Date: 07/17/2023 Prepared by: Shayna Flores Program [...] sets - 10 reps - Supine Hamstring Northern Irish Ball Curls/Dynamic Mobilization - 1 x daily - 2 x weekly - 2 sets - 10 reps - Bridge with Heels on Northern Irish Ball - 1 x daily - 2 x weekly - 2 sets - 10 reps Assessment Patient with much higher levels of pain and anxiety due to weaning off pristiq, modified treatment to avoid over stimulation this date. PT recommending continued skilled physical therapy at this timeto improve her mobility, daily functional activities, and participation in work and life roles of meaning. PT Assessment Prognosis: Good Goals Short Term Goals (4 weeks) Patient will be educated on and given the workbook for CRPS. Goal Met - 8/2 2. Patient will be educated on and given the workbook for FMD. Goal Met 3. Patient will complete the Active Stand Test. Goal Met - 89 4. Patient will complete the Patient Specific Functional Scale. Goal Met - 8/2 5. Patient will complete the sensory grid examination of her cervical spine. Goal Met - 9/6 Integration Lead Goals (12 weeks) Pt will be able to improve tolerance to MIGSIF Bike Test by 4 stages to demonstrate [...] of Care Written by Isaura Rae on 09/24/24 at 9:03 AM documented in this encounter Plan of Treatment Upcoming Encounters Date Type Department Care Team (Late st Contact Info) Description 11/05/2024 9:00 AM EDT Appointment [facility] [address] [place] [address] Isaura Rae 11/05/2024 9:45 AM EDT Appointment [facility] [address] [place] [address] Agueda Mccray 11/12/2024 9:00 AM EDT Appointment [facility] [address] [place] [address] Isaura Rae 11/12/2024 9:45 AM EDT Appointment [facility] [address] [place] [address] Agueda Mccray 11/19/2024 9:00 AM EDT Appointment [facility] [address] [place] [address] Isaura Rae 11/19/2024 9:45 AM EDT Appointment [facility] [address] [place] [address] Agueda Mccray 11/26/2024 9:00 AM EDT Appointment [facility] [address] [place] [address] Isaura Rae 11/26/2024 9:45 AM EDT Appointment [facility] [address] [place] [address] Agueda Mccray 12/03/2024 9:00 AM EDT Appointment [facility] [address] [place] [address] Isaura Rae 12/03/2024 9:45 AM EDT Appointment [facility] [address] [place] [address] Agueda Mccray A 12/10/2024 9:45 AM EDT Appointment [facility] [address] [place] [address] Agueda Mccray A 12/17/2024 9:00 AM EDT Appointment [facility] [address] [place] [address] Isaura Rae 12/17/2024 9:45 AM EDT Appointment [facility] [address] [place] [address] Agueda Mccray A 12/24/2024 9:00 AM EDT Appointment [facility] [address] [place] [address] Isaura Rae 12/24/2024 9:45 AM EDT Appointment [facility] [address] [place] [address] Agueda Mccray A 12/31/2024 9:00 AM EDT Appointment [facility] [address] [place] [address] Isaura Rae 12/31/2024 9:45 AM EDT Appointment [facility] [address] [place] [address] Agueda Mccray A 01/07/2025 9:00 AM EDT Appointment [facility] [address] [place] [address] Isaura Rae 01/07/2025 9:45 AM EDT Appointment [facility] [address] [place] [address] Agueda Mccray A 01/14/2025 9:00 AM EDT Appointment [facility] [address] [place] [address] Isaura Rae 01/14/2025 9:45 AM EDT Appointment [facility] [address] [place] [address] Agueda Mccray 01/21/2025 9:00 AM EDT Appointment [facility] [address] [place] [address] Isaura Rae 01/21/2025 9:45 AM EDT Appointment [facility] [address] [place] [address] Agueda Mccray documented as of this encounter [...] documented as of this encounter Care Teams Correctional Cook Relationship Specialty Start Date End Date Gabe Cohen MD [address] [place] [address] #1 #1 RAZ Ann [address] PCP - General 09/08/20 documented as of this encounter
--- OUTSIDE RECORDS SUMMARY | 2024-10-01 08:58 | XMS_ITS | Encounter Summary ---
Author Organization [facility] Address [address] [place] [address] Care Team Providers Care Service Delivery Manager Name Role Phone Gabe Cohen MD Primary Care Provider [phone] Reason for Visit * Consultation (Routine) - Authorized Specialty Diagnoses / Procedures Referred By Tanika lao Referred To Contact Physical Therapy Diagnoses Complex regional pain syndrome I Left arm weakness Herb Stauffer MD [address] [place] [address] Phone: tel: fax: [facility] [address] [place] [address] Phone: tel: fax: Referral ID Status Reason Start Date Expiration Date Visits Requested Visits Authorized [id number] Authorized Consult and Treat 11/11/2023 12/26/2024 1 39 Encounter Details Date Type Department Care Team (Latest Contact Info) Description 10/01/2024 8:58 AM EDT Hospital Encounter [facility] [address] [place] [address] Isaura Rae Complex regional pain [...] * Progress Notes - Isaura Rae - 10/01/2024 9:00 AM EDT Physical Therapy PT Daily Treatment Note DATE: 10/01/24 NAME: Radha Gabriel Date of : 1970 Therapist: Isaura Rae Subjective Still adjusting to medicine switch but feeling less anxious and dizzy than last week. Treatment/Objective Assessment: Activity Reps/Timing Comments Smooth Pursuits [...] Head Set Games: Lean Into the Music MolecularMD Beach-critter find CandyLand-critter find Robot Find with binaural sound Patient wearing headset with far less avoidance of tactile and pressure stimulation to left side of face and head today. Much improved left head rotation and side bending without pain this date. Noted increased difficulty with locating sounds in left ear/left side. Balance Beam BITS Activities: Tracing shapes on screen Visual scanning #/letters 35 items, plain screen on firm surface then repeat on foam pad. Repeat with checkerboard background and 12 items. Completed as written. Recumbent Bike 8 minutes, level 2 No complaint of hip pain or increased LUE pain today. Education Today's Treatment Needs Communication Device: No Patient Understanding of Basic Information: Understands, able to self manage Barriers to Learning: None Readiness to Learn: Accepting Did Patient/Family Demonstrate Learning: Pt/Family verbalizes understanding, Pt/Family demonstratesunderstanding Who Was Educated: Patient, Family Rehab Potential: Good Education Given: Verbal, Demonstrated [place] [facility] protocol Physical Therapy Home Exercise Program Cardio: [...] start See HEP sheet given Access Code: [email or web address] URL: [email or web address] Date: 07/17/2023 Prepared by: Shayna Flores Program [...] sets - 10 reps - Supine Hamstring Namibian Ball Curls/Dynamic Mobilization - 1 x daily - 2 x weekly - 2 sets - 10 reps - Bridge with Heels on Namibian Ball - 1 x daily - 2 [...] her cervical spine. Goal Met - 9/6 Penitentiary Goals (12 weeks) Pt will be able to improve tolerance to [employer] Learning Bike Test by 4 stages to demonstrate [...] of Care Written by Isaura Rae on 10/01/24 at 9:00 AM documented in this encounter Plan of Treatment Upcoming Encounters Date Type Department Care Team (Late st Contact Info) Description 11/05/2024 9:00 AM EDT Appointment [facility] [address] [place] [address] Isaura Rae 11/05/2024 9:45 AM EDT Appointment [facility] [address] [place] [address] Agueda Mccray 11/12/2024 9:00 AM EDT Appointment [facility] [address] [place] [address] Isaura Rae 11/12/2024 9:45 AM EDT Appointment [facility] [address] [place] [address] Agueda Mccray 11/19/2024 9:00 AM EDT Appointment [facility] [address] [place] [address] Isaura Rae 11/19/2024 9:45 AM EDT Appointment [facility] [address] [place] [address] Agueda Mccray 11/26/2024 9:00 AM EDT Appointment [facility] [address] [place] [address] Isaura Rae 11/26/2024 9:45 AM EDT Appointment [facility] [address] [place] [address] Agueda Mccray 12/03/2024 9:00 AM EDT Appointment [facility] [address] [place] [address] Isaura Rae 12/03/2024 9:45 AM EDT Appointment [facility] [address] [facility] [address] Agueda Mccray A 12/10/2024 9:45 AM EDT Appointment [facility] [address] [place] [address] Agueda Mccray A 12/17/2024 9:00 AM EDT Appointment [facility] [address] [place] [address] Isaura Rae 12/17/2024 9:45 AM EDT Appointment [facility] [address] [place] [address] Agueda Mccray A 12/24/2024 9:00 AM EDT Appointment [facility] [address] [place] [address] Isaura Rae 12/24/2024 9:45 AM EDT Appointment [facility] [address] [place] [address] Agueda Mccray A 12/31/2024 9:00 AM EDT Appointment [facility] [address] [place] [address] Isaura Rae 12/31/2024 9:45 AM EDT Appointment [facility] [address] [place] [address] Agueda Mccray A 01/07/2025 9:00 AM EDT Appointment [facility] [address] [place] [address] Isaura Rae 01/07/2025 9:45 AM EDT Appointment [facility] [address] [place] [address] Agueda Mccray A 01/14/2025 9:00 AM EDT Appointment [facility] [address] [place] [address] Isaura Rae 01/14/2025 9:45 AM EDT Appointment [facility] [address] [place] [address] Agueda Mccray 01/21/2025 9:00 AM EDT Appointment [facility] [address] [place] [address] Isaura Rae 01/21/2025 9:45 AM EDT Appointment [facility] [address] [place] [address] Agueda Mccray documented as of this encounter [...] documented as of this encounter Care Teams Service Delivery Manager Relationship Specialty Start Date End Date Gabe Cohen MD [address] [place] [address] #1 #1 RAZ Ann [address] PCP - General 09/08/20 documented as of this encounter
--- OUTSIDE RECORDS SUMMARY | 2024-10-01 08:59 | XMS_ITS | Encounter Summary ---
Author Organization [facility] Address [address] [place] [address] Care Team Providers Care Lighting Technician Name Role Phone Gabe Cohen MD Primary Care Provider [phone] Reason for Visit * Consultation (Routine) - Authorized Specialty Diagnoses / Procedures Referred By Tanika lao Referred To Contact Occupational Therapy Diagnoses Complex regional pain syndrome I Left arm weakness Herb Stauffer MD [address] [place] [address] Phone: tel: fax: [facility] [address] [place] [address] Phone: tel: fax: Referral ID Status Reason Start Date Expiration Date Visits Requested Visits Authorized [id number] Authorized Consult and Treat 11/11/2023 12/26/2024 1 44 Encounter Details Date Type Department Care Team (Latest Contact Info) Description 10/01/2024 8:59 AM EDT - 10/01/2024 11:59 PM EDT Hospital Encounter [facility] [address] [place] [address] Agueda Mccray Complex regional pain [...] Present: No Patient's Preferred Language for Communication: Bengali Salon Manager: No Subjective Pt reported last pristiq was [...] techniques, pt then accepting application of nail north korean to right hand from OT, while continuing to utilize mirror to promote recognition of L hand. Pt declined to trial use of nail north korean on L hand this date, stating she [...] Initial Goal #5 Initial Goal #6 Initial Line Closer Goal Goal Status Date Met Comments Goal [...] Info) Description 11/05/2024 9:00 AM EDT Appointment [facility] [address] [place] [address] Isaura Rae 11/05/2024 9:45 AM EDT Appointment [facility] [address] [place] [address] Agueda Mccray A 11/12/2024 9:00 AM EDT Appointment [facility] [address] [place] [address] Isaura Rae 11/12/2024 9:45 AM EDT Appointment [facility] [address] [place] [address] Agueda Mccray A 11/19/2024 9:00 AM EDT Appointment [facility] [address] [place] [address] Isaura Rae 11/19/2024 9:45 AM EDT Appointment [facility] [address] [place] [address] Agueda Mccray A 11/26/2024 9:00 AM EDT Appointment [facility] [address] [place] [address] Isaura Rae 11/26/2024 9:45 AM EDT Appointment [facility] [address] [place] [address] Agueda cMcray A 12/03/2024 9:00 AM EDT Appointment [facility] [address] [place] [address] Isaura Rae 12/03/2024 9:45 AM EDT Appointment [facility] [address] [place] [address] Agueda Mccray A 12/10/2024 9:45 AM EDT Appointment [facility] [address] [place] [address] Amelie Mccrayekah A 12/17/2024 9:00 AM EDT Appointment [facility] [address] [place] [address] Isaura Rae 12/17/2024 9:45 AM EDT Appointment [facility] [address] [place] [address] Agueda Mccray A 12/24/2024 9:00 AM EDT Appointment [facility] [address] [place] [address] Isaura Rae 12/24/2024 9:45 AM EDT Appointment [facility] [address] [place] [address] Agueda Mccray A 12/31/2024 9:00 AM EDT Appointment [facility] [address] [place] [address] Isaura Rae 12/31/2024 9:45 AM EDT Appointment [facility] [address] [place] [address] Agueda Mccray 01/07/2025 9:00 AM EDT Appointment [facility] [address] [place] [address] Isauar Rae 01/07/2025 9:45 AM EDT Appointment [facility] [address] [place] [address] Agueda Mccray 01/14/2025 9:00 AM EDT Appointment [facility] [address] [place] [address] Isaura Rae 01/14/2025 9:45 AM EDT Appointment [facility] [address] [place] [address] Agueda Mccray 01/21/2025 9:00 AM EDT Appointment [facility] [address] [place] [address] Isaura Rae 01/21/2025 9:45 AM EDT Appointment [facility] [address] [place] [address] Agueda Mccray documented as of this encounter [...] documented as of this encounter Care Teams Lighting Technician Relationship Specialty Start Date End Date Gabe Cohen MD [address] [place] [address] #1 #1 RAZ Ann [address] PCP - General 09/08/20 documented as of this encounter
--- OUTSIDE RECORDS SUMMARY | 2024-10-15 08:57 | XMS_ITS | Encounter Summary ---
Author Organization [facility] Address [address] [place] [address] Care Team Providers Care Mud Analysis Well Logging Operator Name Role Phone Gabe Cohen MD Primary Care Provider [phone] Reason for Visit * Consultation (Routine) - Authorized Specialty Diagnoses / Procedures Referred By Tanika lao Referred To Contact Physical Therapy Diagnoses Complex regional pain syndrome I Left arm weakness Herb Stauffer MD [address] [place] [address] Phone: tel: fax: [facility] [address] [place] [address] Phone: tel: fax: Referral ID Status Reason Start Date Expiration Date Visits Requested Visits Authorized [id number] Authorized Consult and Treat 11/11/2023 12/26/2024 1 39 Encounter Details Date Type Department Care Team (Latest Contact Info) Description 10/15/2024 8:57 AM EDT - 10/15/2024 11:59 PM EDT Hospital Encounter [facility] [address] [place] [address] Isaura Rae Complex regional pain [...] * Progress Notes - Isaura Rae - 10/15/2024 9:00 AM EDT Physical Therapy PT Daily Treatment Note DATE: 10/15/24 NAME: Radha Gabriel Date of : 1970 Therapist: Isaura Rae Subjective Patient has been told to stop taking her new medication due to continued abdominal pain and bloating. Went to urgent treatment, using Bety lax to treat for now. Will follow up with PCP, getting referral for OB-ACTIVITY COORDINATOR due to potential for Fibroids. Treatment/Objective Assessment: Activity Reps/Timing Comments Smooth Pursuits [...] ball heading Ball tilting Balance Bubble Completed as written this date. PT providing SBA and support with cues for spatial orientation. Virtual Reality Head Set Games: Lean Into the Music [employer] Beach-critter find CandyLand-critter find Robot Find with [...] Repeat with checkerboard background and 12 items. Recumbent Bike 8 minutes, level 2 No [...] start See HEP sheet given Access Code: [email or web address] URL: [email or web address] Date: 07/17/2023 Prepared by: Shayna Flores Program [...] sets - 10 reps - Supine Hamstring Puerto Rican Ball Curls/Dynamic Mobilization - 1 x daily - 2 x weekly - 2 sets - 10 reps - Bridge with Heels on Puerto Rican Ball - 1 x daily - 2 [...] her cervical spine. Goal Met - 9/6 Suppository Molding Machine Operator Goals (12 weeks) Pt will be able to improve tolerance to [place] Actus Digital Bike Test by 4 stages to demonstrate [...] of Care Written by Isaura Rae on 10/15/24 at 9:53 AM documented in this encounter Plan of Treatment Upcoming Encounters Date Type Department Care Team (Late st Contact Info) Description 11/05/2024 9:00 AM EDT Appointment [facility] [address] [place] [address] Isaura Rae 11/05/2024 9:45 AM EDT Appointment [facility] [address] [place] [address] Agueda Mccray 11/12/2024 9:00 AM EDT Appointment [facility] [address] [place] [address] Isaura Rae 11/12/2024 9:45 AM EDT Appointment [facility] [address] [place] [address] Agueda Mccray 11/19/2024 9:00 AM EDT Appointment [facility] [address] [place] [address] Isaura Rae 11/19/2024 9:45 AM EDT Appointment [facility] [address] [place] [address] Agueda Mccray 11/26/2024 9:00 AM EDT Appointment [facility] [address] [place] [address] Isaura Rae 11/26/2024 9:45 AM EDT Appointment [facility] [address] [place] [address] Agueda Mccray 12/03/2024 9:00 AM EDT Appointment [facility] [address] [place] [address] Isaura Rae 12/03/2024 9:45 AM EDT Appointment [facility] [address] [place] [address] Agueda Mccray 12/10/2024 9:45 AM EDT Appointment [facility] [address] [place] [address] Agueda Mccray A 12/17/2024 9:00 AM EDT Appointment [facility] [address] [place] [address] Isaura Rae 12/17/2024 9:45 AM EDT Appointment [facility] [address] [place] [address] Agueda Mccray A 12/24/2024 9:00 AM EDT Appointment [facility] [address] [place] [address] Isaura Rae 12/24/2024 9:45 AM EDT Appointment [facility] [address] [place] [address] Agueda Mccray A 12/31/2024 9:00 AM EDT Appointment [facility] [address] [place] [address] Isaura Rae 12/31/2024 9:45 AM EDT Appointment [facility] [address] [place] [address] Agueda Mccray A 01/07/2025 9:00 AM EDT Appointment [facility] [address] [place] [address] Isaura Rae 01/07/2025 9:45 AM EDT Appointment [facility] [address] [place] [address] Agueda Mccray A 01/14/2025 9:00 AM EDT Appointment [facility] [address] [place] [address] Isaura Rae 01/14/2025 9:45 AM EDT Appointment [facility] [address] [place] [address] Agueda Mccray 01/21/2025 9:00 AM EDT Appointment [facility] [address] [place] [address] Isaura Rae 01/21/2025 9:45 AM EDT Appointment [facility] [address] [place] [address] Agueda Mccray documented as of this encounter [...] documented as of this encounter Care Teams Mud Analysis Well Logging Operator Relationship Specialty Start Date End Date Gabe Cohen MD [address] [place] [address] [address] [place] [address] PCP - General 09/08/20 documented as of this encounter
--- OUTSIDE RECORDS SUMMARY | 2024-10-22 08:57 | XMS_ITS | Encounter Summary ---
Author Organization [facility] Address [address] [place] [address] Care Team Providers Care Recorder Helper Gravity Prospecting Name Role Phone Gabe Cohen MD Primary Care Provider [phone] Reason for Visit * Consultation (Routine) - Authorized Specialty Diagnoses / Procedures Referred By Tanika lao Referred To Contact Physical Therapy Diagnoses Complex regional pain syndrome I Left arm weakness Herb Stauffer MD [address] [place] [address] Phone: tel: fax: [facility] [address] [place] [address] Phone: tel: fax: Referral ID Status Reason Start Date Expiration Date Visits Requested Visits Authorized [id number] Authorized Consult and Treat 11/11/2023 12/26/2024 1 39 Encounter Details Date Type Department Care Team (Latest Contact Info) Description 10/22/2024 8:57 AM EDT - 10/22/2024 11:59 PM EDT Hospital Encounter [facility] [address] [place] [address] Isaura Rae Complex regional pain [...] * Progress Notes - Isaura Rae - 10/22/2024 9:00 AM EDT Physical Therapy PT Daily Treatment Note and Plan of Care Re-Assessment DATE: 10/22/24 NAME: Radha Gabriel Date of : 1970 Therapist: Isaura Rae Subjective Patient reporting that air conditioning is out and that she is very fatigued today because of this.Hard to sleep in a hot house. Treatment/Objective Assessment: Cervical 9 Grid Accuracy: 7/10, worse accuracy in lower left quadrant mostly but does localize to left side. Dizziness Handicap Inventory: 47 points (high moderate level of disability) Activity Reps/Timing Comments Smooth Pursuits in horizontal [...] her neck relaxing. Tactile stimulation paired with oculomotor tracking stimulus and visual imagery, tactile stimulation progressively moved to left side of neck and shoulder and left elbow. 25 minutes total with rest breaks for processing Focussed on split attention between oculomotor and tactile tasks. Patient demonstrating improved localization but still has strong withdrawal response. Noting improved ability to describe tactile experience despite discomfort. Able to verbalize a a sense of disassociation with left arm. High Contrast Background exposure Breath Work Training: [...] Head Set Games: Lean Into the Music [employer] Beach-critter find [place]andy[place]-critter find Robot Find with [...] checkerboard background and 12 items. Recumbent Bike No complaint of hip pain or increased LUE pain today. Education Today's Treatment Needs Communication Device: No Patient Understanding of Basic Information: Understands, able to self manage Barriers to Learning: None Readiness to Learn: Accepting Did Patient/Family Demonstrate Learning: Pt/Family verbalizes understanding, Pt/Family demonstratesunderstanding Who Was Educated: Patient, Family Rehab Potential: Good Education Given: Verbal, Demonstrated [place] ADaPT protocol Physical Therapy Home Exercise Program [...] start See HEP sheet given Access Code: [email or web address] URL: [email or web address] Date: 07/17/2023 Prepared by: Shayna Flores Program [...] sets - 10 reps - Supine Hamstring Slovenian Ball Curls/Dynamic Mobilization - 1 x daily - 2 x weekly - 2 sets - 10 reps - Bridge with Heels on Slovenian Ball - 1 x daily - 2 x weekly - 2 sets - 10 reps Assessment Patient demonstrating improved localization and description of tactile stimulus but still has strong withdrawal and emotional response. Dizziness improving via DHI subjective report. Recommending continued skilled physical therapy to improve mobility and activity levels. PT Assessment Prognosis: Good Goals Short Term [...] her cervical spine. Goal Met - 9/6 Business Development Representative Goals (12 weeks) Pt will be able to improve tolerance to [place] Advanced Patient Care Bike Test by 4 stages to demonstrate [...] DHI score by 10 points or greater. MET 10/22/2024 5. Pt will be able to complete VOMS testing in one appointment with dizziness and left side pain increasing by no more than 3 points. MET 09/03/2024 Plan Plan Continue With Current Plan of Care: Continue With Current Plan of Care Written by Isaura Rae on 10/22/24 at 9:44 AM documented in this encounter Plan of Treatment Upcoming Encounters Date Type Department Care Team (Late st Contact Info) Description 11/05/2024 9:00 AM EDT Appointment [facility] [address] [place] [address] Isaura Rae 11/05/2024 9:45 AM EDT Appointment [facility] [address] [place] [address] Agueda Mccray 11/12/2024 9:00 AM EDT Appointment [facility] [address] [place] [address] Isaura Rae 11/12/2024 9:45 AM EDT Appointment [facility] [address] [place] [address] Agueda Mccray A 11/19/2024 9:00 AM EDT Appointment [facility] [address] [place] [address] Isaura Rae 11/19/2024 9:45 AM EDT Appointment [facility] [address] [place] [address] Agueda Mccray A 11/26/2024 9:00 AM EDT Appointment [facility] [address] [place] [address] Isaura Rae 11/26/2024 9:45 AM EDT Appointment [facility] [address] [place] [address] Agueda Mccray A 12/03/2024 9:00 AM EDT Appointment [facility] [address] [place] [address] Isaura Rae 12/03/2024 9:45 AM EDT Appointment [facility] [address] [place] [address] Agueda Mccray A 12/10/2024 9:45 AM EDT Appointment [facility] [address] [place] [address] Agueda Mccray A 12/17/2024 9:00 AM EDT Appointment [facility] [address] [place] [address] Isaura Rae 12/17/2024 9:45 AM EDT Appointment [facility] [address] [place] [address] Agueda Mccray A 12/24/2024 9:00 AM EDT Appointment [facility] [address] [place] [address] Isaura Rae 12/24/2024 9:45 AM EDT Appointment [facility] [address] [place] [address] Agueda Mccray A 12/31/2024 9:00 AM EDT Appointment [facility] [address] [place] [address] Isaura Rae 12/31/2024 9:45 AM EDT Appointment [facility] [address] [place] [address] Agueda Mccray 01/07/2025 9:00 AM EDT Appointment [facility] [address] [place] [address] Isaura Rae 01/07/2025 9:45 AM EDT Appointment [facility] [address] [place] [address] Agueda Mccray A 01/14/2025 9:00 AM EDT Appointment [facility] [address] [place] [address] Isaura Rae 01/14/2025 9:45 AM EDT Appointment [facility] [address] [place] [address] Agueda Mccray 01/21/2025 9:00 AM EDT Appointment [facility] [address] [place] [address] Isaura Rae 01/21/2025 9:45 AM EDT Appointment [facility] [address] [place] [address] Agueda Mccray documented as of this encounter [...] documented as of this encounter Care Teams Recorder Helper Gravity Prospecting Relationship Specialty Start Date End Date Gabe Cohen MD [address] [place] [address] #1 #1 RAZ Ann [address] PCP - General 09/08/20 documented as of this encounter
--- OUTSIDE RECORDS SUMMARY | 2024-10-22 08:57 | XMS_ITS | Encounter Summary ---
Author Organization [facility] Address [address] [place] [address] [address] Team Prov[address] Care [address] Shaft And Steering Post Repairer Name Role Phone Gabe Cohen MD Primary Care Provider [phone] Reason for Visit * Consultation (Routine) - Authorized Specialty Diagnoses / Procedures Referred By Tanika lao Referred To Contact Occupational Therapy Diagnoses Complex regional pain syndrome I Left arm weakness Herb Stauffer MD [address] [place] [address] Phone: tel: fax: [facility] [address] [place] [address] Phone: tel: fax: Referral ID Status Reason Start Date Expiration Date Visits Requested Visits Authorized [id number] Authorized Consult and Treat 11/11/2023 12/26/2024 1 44 Encounter Details Date Type Department Care Team (Latest Contact Info) Description 10/22/2024 8:57 AM EDT - 10/22/2024 11:59 PM EDT Hospital Encounter [facility] [address] [place] [address] Agueda Mccray Complex regional pain [...] * Progress Notes - Agueda Mccray - 10/22/2024 9:45 AM EDT [facility] OCCUPATIONAL THERAPY REASSESSMENT Today's Date: 10/22/24 Patient Name: Radha Gabriel : 1970 Age: [...] Present: No Patient's Preferred Language for Communication: [employer] Teacher: No Clinical Background viviana Camilo 54 y.o. 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 10/22 I didn't sleep any at all last night. Reports AC issues impacting ability to sleep the past few nights. To see Donita (psychiatry) later in October, advised not to take anything until her appointment. 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 She was sent to [facility] where she was diagnosed with CRPS. She [...] mother and adult daughter at home. Per on 06/18/23: Patient is a 53 y.o. female who was referred to have a psychological evaluation by the [facility]. Patient reported [...] make the pain worse include: trying to engine hostler their affected arm/hand. 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 Current Pain: 7/10 Description of Pain: constant Precautions: none Previous [...] reports: Only using easy clothes. Pt reports: [place] how to adapt IADLs IND SAAVEDRA Sup/Touch [...] [] [] [] [] [] [] [] college and career counselor [] [] [] [] [] [] [] [...] [] [] [] [] [] [] [] Orthodoxy services [] [] [] [] [] [] [] Writing [] [] [] [] [] [] [] Yard work [] [] [] [] [] [] [] IE Pt reports: I've had to change things. Pt's mother and daughter takes care of home - able to swiffer, use toilet brush the easy things Pt reports difficulty when attempting to wash dishes. UE ROM/Strength: GMI program continues to progress, however due to severity of deficits and and complex medical history, pt continues to be unable to tolerate ROM and strength testing for LUE. UE ROM WFL Impaired Comments Left UE AROM [] [x] Left UE PROM [] [x] Right UE AROM [] [x] Right UE PROM [x] [] LUE strength [] [x] RUE strength [] [x] UE Neuro Screening: Left Upper Extremity Intact Impaired Absent Comments Light Touch [] [x] [] Sharp/Dull [] [x] [] Stereognosis [] [x] [] Proprioception [] [x] [] 2 Point Discrimination [] [x] [] Vibration [] [x] [] Hot/Cold [] [x] [] Poor tolerance to touch as well as impaired proprioception. Continues with GMI program. Unable to test the following at this time: LUE head of geography, pinch, MMT, ROM, neuro screening, FMC, GMC. These items will be evaluated as appropriate and as pt is able to tolerate. CPRS as well as need to focus on other tx continue to impact ability to test. Rn Access and Pinch Strength: To be evaluated, as appropriate and as pt is able to tolerate Nine Hole Peg Test: To be evaluated, as appropriate and as pt is able to tolerate Right Upper Extremity: N/A Left Upper Extremity: N/A Box and Block: To be evaluated, as appropriate and as pt is able to tolerate Right Upper Extremity: N/A Left Upper Extremity: N/A Treatment: 45 minutes neuromuscular reeducation Listed below are notes from today's reassessment and discussion regarding overall progress. Treatment/Education Review of what she is doing during the week: - walking daily at [facility] and back - couple of days a week. Also getting out and about with her mom or to her mothers house - coloring sheets, hand flash cards, not done a lot of the mirroring (doesn't like how the mirror looks) - explained continues to feel disconnected/disassociated from L side. (Stating about every other day, will spread out tasks) - putty with R hand - its hard but I keep moving my hand. - neck exercises 2-1 days a week and/or other PT exercises Leisure and sensory activities consistently engaging in: -suck on candy all the time -rock in rocking chair sometimes -sitting outside in the shade -changes where she is sitting around the house -sometimes will watch TV or listen to music Sleep routine consisting of: Baths Lotions Music or watching something lighthearted on TV Sensory ladder / symptom inventory education completed and issued worksheets. Engaging in a symptominventory or sensory ladder can help increase self- awareness of early signs of dysregulation and identify effective strategies for self-regulation. These tools support proactive management of symptoms by tracking patterns and building a personalized toolkit for coping. Assessment Rehabilitation Potential [] Good [x] Fair [...] techniques and adaptive equipment as needed. Progressing 12/ pt continues to accept recommendations based on pt's physical limitations as well as severity of pain and overall decreased activity tolerance. Goal #4 Initial Goal #5 Initial Goal #6 Initial Route Driver Coin Machines Goal Goal Status Date Met Comments Goal [...] [] Planned OT Treatments: [] Aquatic Therapy- 06125 []Group Therapy- 88240 []Prevocational Training-41932 []Wheelchair Management-30814 [] Pre-Prosthetic Training []Balance Training - 71448 [x]Home Management-48630 [x]Progressive Home Program []Work Hardening [x] Pt/Family Education [x]Basic Activity of Daily Living-23025 []Iontophoresis- 61629 [x]Safety education []Work Simplification [x] Fluidotherapy-10593 [x]Cog-Function Therapeutic Intervention-97795 []Orthotic/prosthetic MGMT Training- 75476 [x]Self-home mgmt/ADL-12357 []Work/school related tasks [x] E- stim unattended G0283 []Community Work Integration-95811 [x]Joint Protection [x]Sensory Integration- 12070 [x] Splinting/Casting [x] Manual Therapy 22868 []Contrast Bath- 73245 [x]Coordination- 91551 [x]Mobility Training-09838 [x]Therapeutic Activity-07925 [x] Discharge Planning [x] Edema Management [x]Neuromuscular Reeducation-68297 [x]Therapeutic Exercises-18402 [] Job Simulation [x] Thermal Modalities-83649 []Energy Conservation Training [x]Pain management [x]Ultrasound- phonophoresis-62835 [x] Equipment Evaluation/Training [x] Paraffin [x] E-stim attended- 10730 [] Parenting/Care of others []Visual and Perceptual Training [] Vocational Training []Other Education: Pt verbalized and demonstrated understanding regarding tx. Barriers to Education: memory, problem solving Frequency: 1-2 times a week for 12 weeks Occupational Therapy Summary and Recommendations: Per PT [...] not hesitate to contact me at the [facility] at [facility] at for any questions or concerns. documented in this encounter Plan of Treatment Upcoming Encounters Date Type Department Care Team (Late st Contact Info) Description 11/05/2024 9:00 AM EDT Appointment [facility] [address] [place] [address] Isaura Rae 11/05/2024 9:45 AM EDT Appointment [facility] [address] [place] [address] Agueda Mccray 11/12/2024 9:00 AM EDT Appointment [facility] [address] [place] [address] Isaura Rae 11/12/2024 9:45 AM EDT Appointment [facility] [address] [place] [address] Agueda Mccray A 11/19/2024 9:00 AM EDT Appointment [facility] [address] [place] [address] Isaura Rae 11/19/2024 9:45 AM EDT Appointment [facility] [address] [place] [address] Agueda Mccray A 11/26/2024 9:00 AM EDT Appointment [facility] [address] [place] [address] Isaura Rae 11/26/2024 9:45 AM EDT Appointment [facility] [address] [place] [address] Agueda Mccray 12/03/2024 9:00 AM EDT Appointment [facility] [address] [place] [address] Isaura Rae 12/03/2024 9:45 AM EDT Appointment [facility] [address] [place] [address] Agueda Mccray 12/10/2024 9:45 AM EDT Appointment [facility] [address] [place] [address] Agueda Mccray 12/17/2024 9:00 AM EDT Appointment [facility] [address] [place] [address] Isaura Rae 12/17/2024 9:45 AM EDT Appointment [facility] [address] [place] [address] Agueda Mccray 12/24/2024 9:00 AM EDT Appointment [facility] [address] [place] [address] Isaura Rae 12/24/2024 9:45 AM EDT Appointment [facility] [address] [place] [address] Agueda Mccray A 12/31/2024 9:00 AM EDT Appointment [facility] [address] [place] [address] Isaura Rae 12/31/2024 9:45 AM EDT Appointment [facility] [address] [place] [address] Agueda Mccray A 01/07/2025 9:00 AM EDT Appointment [facility] [address] [place] [address] Isaura Rae 01/07/2025 9:45 AM EDT Appointment [facility] [address] [place] [address] Agueda Mccray A 01/14/2025 9:00 AM EDT Appointment [facility] [address] [place] [address] Isaura Rae 01/14/2025 9:45 AM EDT Appointment [facility] [address] [place] [address] Agueda Mccray A 01/21/2025 9:00 AM EDT Appointment [facility] [address] [place] [address] Isaura Rae 01/21/2025 9:45 AM EDT Appointment [facility] [address] [place] [address] Agueda Mccray A documented as of this [...] documented as of this encounter Care Teams Drive Shaft And Steering Post Repairer Relationship Specialty Start Date End Date Gabe Cohen MD [address] [place] [address] #1 #1 RAZ Ann [address] PCP - General 09/08/20 documented as of this encounter
--- OUTSIDE RECORDS SUMMARY | 2024-11-03 10:33 | XMS_ITS | Encounter Summary ---
Author Organization [facility] Address [address] [place] [address] Care Team Providers Care Pre Certification Specialist Name Role Phone Gabe Cohen MD Primary Care Provider [phone] Encounter Details Date Type Department Care Team (Late st Contact Info) Description 10/25/2024 Plan of Care Documentation [facility] [address] [place] [address] Social History Tobacco Use Types Packs/Day Years [...] Info) Description 11/05/2024 9:00 AM EDT Appointment [facility] [address] [place] [address] Isaura Rae 11/05/2024 9:45 AM EDT Appointment [facility] [address] [place] [address] Agueda Mccray 11/12/2024 9:00 AM EDT Appointment [facility] [address] [place] [address] Isaura Rae 11/12/2024 9:45 AM EDT Appointment [facility] [address] [place] [address] Agueda Mccray A 11/19/2024 9:00 AM EDT Appointment [facility] [address] [place] [address] Isaura Rae 11/19/2024 9:45 AM EDT Appointment [facility] [address] [place] [address] Agueda Mccray A 11/26/2024 9:00 AM EDT Appointment [facility] [address] [place] [address] Isaura Rae 11/26/2024 9:45 AM EDT Appointment [facility] [address] [place] [address] Agueda Mccray 12/03/2024 9:00 AM EDT Appointment [facility] [address] [place] [address] Isaura Rae 12/03/2024 9:45 AM EDT Appointment [facility] [address] [place] [address] Agueda Mccray A 12/10/2024 9:45 AM EDT Appointment [facility] [address] [place] [address] Agueda Mccray 12/17/2024 9:00 AM EDT Appointment [facility] [address] [place] [address] Isaura Rae 12/17/2024 9:45 AM EDT Appointment [facility] [address] [place] [address] Agueda Mccray 12/24/2024 9:00 AM EDT Appointment [facility] [address] [place] [address] Isaura Rae 12/24/2024 9:45 AM EDT Appointment [facility] [address] [place] [address] Agueda Mccray 12/31/2024 9:00 AM EDT Appointment [facility] [address] [place] [address] Isaura Rae 12/31/2024 9:45 AM EDT Appointment [facility] [address] [place] [address] Agueda Mccray 01/07/2025 9:00 AM EDT Appointment [facility] [address] [place] [address] Isaura Rae 01/07/2025 9:45 AM EDT Appointment [facility] [address] [place] [address] Agueda Mccray 01/14/2025 9:00 AM EDT Appointment [facility] [address] [place] [address] Isaura Rae 01/14/2025 9:45 AM EDT Appointment [facility] [address] [place] [address] Agueda Mccray 01/21/2025 9:00 AM EDT Appointment [facility] [address] [place] [address] Isaura Rae 01/21/2025 9:45 AM EDT Appointment [facility] [address] [place] [address] Agueda Mccray documented as of this encounter Visit Diagnoses Not on filedocumented in this encounter Additional Health Concerns Assessment Noted Time A fall risk assessment has been complete d for the patient 06/04/2024 1:08 PM EST A Body Mass Index follow-up plan has been documented for the patient 06/04/2024 3:17 PM EST documented as of this encounter Care Teams Pre Certification Specialist Relationship Specialty Start Date End Date Gabe Cohen MD [address] [place] [address] #1 #1 RAZ Ann [address] PCP - General 09/08/20 documented as of this encounter
--- OUTSIDE RECORDS SUMMARY | 2024-11-03 10:33 | XMS_ITS | Encounter Summary ---
Author Organization [facility] Address [address] [place] [address] Care Team Providers Care Materials Branch Chief Name Role Phone Gabe Cohen MD Primary Care Provider [phone] Encounter Details Date Type Department Care Team (Latest Contact Info) Description 10/15/2024 Travel Social History Tobacco Use Types Packs/Day [...] EDT Appointment [facility] [address] [place] [address] Isaura Rae 11/05/2024 9:45 AM EDT Appointment [facility] [address] [place] [address] Agueda Mccray 11/12/2024 9:00 AM EDT Appointment [facility] [address] [place] [address] Isaura Rae 11/12/2024 9:45 AM EDT Appointment [facility] [address] [place] [address] Agueda Mccray 11/19/2024 9:00 AM EDT Appointment [facility] [address] [place] [address] Isaura Rae 11/19/2024 9:45 AM EDT Appointment [facility] [address] [place] [address] Agueda Mccray A 11/26/2024 9:00 AM EDT Appointment [facility] [address] [place] [address] Isaura Rae 11/26/2024 9:45 AM EDT Appointment [facility] [address] [place] [address] Agueda Mccray A 12/03/2024 9:00 AM EDT Appointment [facility] [address] [place] [address] Isaura Rae 12/03/2024 9:45 AM EDT Appointment [facility] [address] [place] [address] Agueda Mccray A 12/10/2024 9:45 AM EDT Appointment [facility] [address] [place] [address] Agueda Mccray A 12/17/2024 9:00 AM EDT Appointment [facility] [address] [place] [address] Isaura Rae 12/17/2024 9:45 AM EDT Appointment [facility] [address] [place] [address] Agueda Mccray A 12/24/2024 9:00 AM EDT Appointment [facility] [address] [place] [address] Isaura Rae 12/24/2024 9:45 AM EDT Appointment [facility] [address] [place] [address] Agueda Mccray A 12/31/2024 9:00 AM EDT Appointment [facility] [address] [place] [address] Isaura Rae 12/31/2024 9:45 AM EDT Appointment [facility] [address] [place] [address] Agueda Mccray 01/07/2025 9:00 AM EDT Appointment [facility] [address] [place] [address] Isaura Rae 01/07/2025 9:45 AM EDT Appointment [facility] [address] [place] [address] Agueda Mccray 01/14/2025 9:00 AM EDT Appointment [facility] [address] [place] [address] Isaura Rae 01/14/2025 9:45 AM EDT Appointment [facility] [address] [place] [address] Agueda Mccray 01/21/2025 9:00 AM EDT Appointment [facility] [address] [place] [address] Isaura Rae 01/21/2025 9:45 AM EDT Appointment [facility] [address] [place] [address] Agueda Mccray documented as of this encounter Visit Diagnoses Not on filedocumented in this encounter Additional Health Concerns Assessment Noted Time A fall risk assessment has been complete d for the patient 06/04/2024 1:08 PM EST A Body Mass Index follow-up plan has been documented for the patient 06/04/2024 3:17 PM EST documented as of this encounter Care Teams Materials Branch Chief Relationship Specialty Start Date End Date Gabe Cohen MD [address] [place] [address] #1 #1 [place] [address] PCP - General 09/08/20 documented as of this encounter
--- OUTSIDE RECORDS SUMMARY | 2024-11-03 10:33 | XMS_ITS | Encounter Summary ---
Author Organization [facility] Address [address] [place] [address] Care Team Providers Care Fiberglass Technician Name Role Phone Gabe Cohen MD Primary Care Provider [phone] Encounter Details Date Type Department Care Team (Late st Contact Info) Description 10/22/2024 Plan of Care Documentation [facility] [address] [place] [address] Social History Tobacco Use Types Packs/Day Years [...] Info) Description 11/05/2024 9:00 AM EDT Appointment [facility] [address] [place] [address] Isaura Rae 11/05/2024 9:45 AM EDT Appointment [facility] [address] [place] [address] Agueda Mccray 11/12/2024 9:00 AM EDT Appointment [facility] [address] [place] [address] Isaura Rae 11/12/2024 9:45 AM EDT Appointment [facility] [address] [place] [address] Agueda Mccray A 11/19/2024 9:00 AM EDT Appointment [facility] [address] [place] [address] Isaura Rae 11/19/2024 9:45 AM EDT Appointment [facility] [address] [place] [address] Agueda Mccray A 11/26/2024 9:00 AM EDT Appointment [facility] [address] [place] [address] Isaura Rae 11/26/2024 9:45 AM EDT Appointment [facility] [address] [place] [address] Agueda Mccray 12/03/2024 9:00 AM EDT Appointment [facility] [address] [place] [address] Isaura Rae 12/03/2024 9:45 AM EDT Appointment [facility] [address] [place] [address] Agueda Mccray A 12/10/2024 9:45 AM EDT Appointment [facility] [address] [place] [address] Agueda Mccray 12/17/2024 9:00 AM EDT Appointment [facility] [address] [place] [address] Isaura Rae 12/17/2024 9:45 AM EDT Appointment [facility] [address] [place] [address] Agueda Mccray 12/24/2024 9:00 AM EDT Appointment [facility] [address] [place] [address] Isaura Rae 12/24/2024 9:45 AM EDT Appointment [facility] [address] [place] [address] Agueda Mccray 12/31/2024 9:00 AM EDT Appointment [facility] [address] [place] [address] Isaura Rae 12/31/2024 9:45 AM EDT Appointment [facility] [address] [place] [address] Agueda Mccray 01/07/2025 9:00 AM EDT Appointment [facility] [address] [place] [address] Isaura Rae 01/07/2025 9:45 AM EDT Appointment [facility] [address] [place] [address] Agueda Mccray 01/14/2025 9:00 AM EDT Appointment [facility] [address] [place] [address] Isaura Rae 01/14/2025 9:45 AM EDT Appointment [facility] [address] [place] [address] Agueda Mccray 01/21/2025 9:00 AM EDT Appointment [facility] [address] [place] [address] Isaura Rae 01/21/2025 9:45 AM EDT Appointment [facility] [address] [place] [address] Agueda Mccray documented as of this encounter Visit Diagnoses Not on filedocumented in this encounter Additional Health Concerns Assessment Noted Time A fall risk assessment has been complete d for the patient 06/04/2024 1:08 PM EST A Body Mass Index follow-up plan has been documented for the patient 06/04/2024 3:17 PM EST documented as of this encounter Care Teams Fiberglass Technician Relationship Specialty Start Date End Date Gabe Cohen MD [address] [place] [address] #1 #1 [place] Ann [address] PCP - General 09/08/20 documented as of this encounter
--- OUTSIDE RECORDS SUMMARY | 2024-11-03 10:33 | XMS_ITS | Encounter Summary ---
Author Organization [facility] Address [address] [place] [address] Care Team Providers Care Labeling Specialist Name Role Phone Gabe Cohen MD Primary Care Provider [phone] Encounter Details Date Type Department Care Team (Latest Contact Info) Description 10/22/2024 Travel Social History Tobacco Use Types Packs/Day [...] EDT Appointment [facility] [address] [place] [address] Isaura Rae 11/05/2024 9:45 AM EDT Appointment [facility] [address] [place] [address] Agueda Mccray 11/12/2024 9:00 AM EDT Appointment [facility] [address] [place] [address] Isaura Rae 11/12/2024 9:45 AM EDT Appointment [facility] [address] [place] [address] Agueda Mccray 11/19/2024 9:00 AM EDT Appointment [facility] [address] [place] [address] Isaura Rae 11/19/2024 9:45 AM EDT Appointment [facility] [address] [place] [address] Agueda Mccray A 11/26/2024 9:00 AM EDT Appointment [facility] [address] [place] [address] Isaura Rae 11/26/2024 9:45 AM EDT Appointment [facility] [address] [place] [address] Agueda Mccray A 12/03/2024 9:00 AM EDT Appointment [facility] [address] [place] [address] Isaura Rae 12/03/2024 9:45 AM EDT Appointment [facility] [address] [place] [address] Agueda Mccray A 12/10/2024 9:45 AM EDT Appointment [facility] [address] [place] [address] Agueda Mccray A 12/17/2024 9:00 AM EDT Appointment [facility] [address] [place] [address] Isaura Rae 12/17/2024 9:45 AM EDT Appointment [facility] [address] [place] [address] Agueda Mccray A 12/24/2024 9:00 AM EDT Appointment [facility] [address] [place] [address] Isaura Rae 12/24/2024 9:45 AM EDT Appointment [facility] [address] [place] [address] Agueda Mccray A 12/31/2024 9:00 AM EDT Appointment [facility] [address] [facility] [place] [address] Isaura Rae 12/31/2024 9:45 AM EDT Appointment [facility] [address] [place] [address] Agueda Mccray 01/07/2025 9:00 AM EDT Appointment [facility] [address] [place] [address] Isaura Rae 01/07/2025 9:45 AM EDT Appointment [facility] [address] [place] [address] Agueda Mccray 01/14/2025 9:00 AM EDT Appointment [facility] [address] [place] [address] Isaura Rae 01/14/2025 9:45 AM EDT Appointment [facility] [address] [place] [address] Agueda Mccray 01/21/2025 9:00 AM EDT Appointment [facility] [address] [place] [address] Isaura Rae 01/21/2025 9:45 AM EDT Appointment [facility] [address] [place] [address] Agueda Mccray documented as of this encounter Visit Diagnoses Not on filedocumented in this encounter Additional Health Concerns Assessment Noted Time A fall risk assessment has been complete d for the patient 06/04/2024 1:08 PM EST A Body Mass Index follow-up plan has been documented for the patient 06/04/2024 3:17 PM EST documented as of this encounter Care Teams Labeling Specialist Relationship Specialty Start Date End Date Gabe Cohen MD [address] [place] [address] #1 #1 [place] Ann [address] PCP - General 09/08/20 documented as of this encounter
--- OUTSIDE RECORDS SUMMARY | 2024-11-03 10:33 | XMS_ITS | Data Portability ---
Author Organization [facility] Address [address] [place] [address] Care Team Providers Care Cuff Maker Name Role Phone SHWETHA FARR Grader Tender Unavailable Assessment Encounter Date Assessment Date Assessment LastModified by Organization Details LastModified Time 12/31/2018 12/31/2018 Ms. Gabriel has had a work injury of the right hand and specifically the fifth finger. Clinically it appears that she has likely had a fracture of the PIP joint although the initial plain film at the ER 8 days ago did not show a fracture. There was an extreme amount of swelling and bruising initially. The MIP and PIP areas are still quite tender and mildly swollen but the bruising has cleared. We recommend light duty avoiding repetitive use of the right hand and rather than elisha taping she should have a splint. We do recommend orthopedic referral for further evaluation as well. She cannot fully flex the finger. She can continue to take occasional aleve as needed. [email or web address] Not available 12/31/2018 15:06:13 Plan of Treatment Reminders Order Date Submit Date Provider Last Modified By Organization Details Last Modified Time Details Appointments None recorded. Lab None recorded. Referral orthopedic surgeon referral 2018 019 [email or web address] [email or web address] Herb Kiser MD, [address] [facility], [place], [address], 0 16:34:04 Procedures None recorded. Surgeries None recorded. Imaging None recorded. Medication Orders None recorded. Patient TargetsNo targets recorded. Patient InstructionsNo instructions recorded. Reason for Referral Orthopedic Surgeon Referral for Injury of finger Referring Physician: Lela Gallegos, Family Medicine, Encounter Date: 12/31/2018 Problems Name Problem SNOMED Code Status Onset Date Resolution Date Notes Provider Name and Address Organization Details Recorded Time Hypertensive disorder 33857419 Active 2018 [facility] 14:14:45 Problem Notes None recorded. Procedures Surgical History Date Name Laterality Status Provider Name and Address Organization Details Recorded Time 09/11/19 18 partial hysterectomy completed [facility] 12/31/2018 14:15:47 04/28/19 04 Cholecystectomy completed [facility] 12/31/2018 14:17:42 04/28/18 86 appendectomy completed [facility] 12/31/2018 14:16:40 colonoscopy completed [facility] 12/31/2018 14:17:08 Imaging Results None recorded. Procedure Notes None recorded. Medical Equipment None Reported. Allergies Allergen ID Allergen Name Allergen Category Reaction Reaction Severity Criticality Documentation Date Start Date Code Code System Note Provider Name and Address Organization Details Recorded Time 74104 Product containin g penicilli n (product) medicatio n Not available Not available Not available 12/31/2018 21172 8001 SNOMED [facility] 14:12:26 68836 Substance with sulfonami de structure and antibacte rial mechanism of action (substanc e) medicatio n Not available Not available Not available 12/31/2018 96405 8003 SNOMED [facility] 14:12:35 97559 doxycycli ne Not available Not available Not available Not available 12/31/2018 3640 RxNorm [facility] 14:12:59 Medications Name Sig Start Date Stop Date Status Note LastModified by Organization Details LastModified Time spironolactone 25 mg-hydrochloroth iazide 25 mg tablet Take 1 tablet every day by oral route. active Not Available Not Available No t Available Lopid active Not Available Not Availa ble Not Available Vitals Date Recorded Body weight Body mass index (BMI) Body height Body temperature Oxygen saturation Oxygen saturation in Arterial blood by Pulse oximetry Heart rate Systolic And Diastolic Provider Name and Address Organization Details Last Updated DateTime 9 88785.2 2 g 29.1 kg/m2 155.45 cm 98.3 [degF] 100 % 100 % 81 /min 136/92 mm[Hg] [facility] 9 14:09:46 Social History None recorded. Functional Status None recorded. Mental Status None recorded. Family History Nothing Reported. Medical History No medical history recorded. Gynecological HistoryNo gynecological history recorded. Obstetrics History GPAL:G 0 P 0 0 0 0 Past Encounters Encounter ID Performer Location Encounter Start Date Encounter Closed Date Diagnosis/Indication Diagnosis SNOMED-CT Code Diagnosis ICD10 Code Diagnosis Note [id number] Lela Gallegos MD [facility] [address] [address] 12/31/2018 14:01:57 12/31/2018 15:14:07 Injury of finger 03189279 S69.91XD Health Concerns Section Related Observation LastModified by Organization Detai ls LastModified Time None Recorded Concern Status LastModified by Organization Details LastModified Time None Recorded Advance Directives Directive None Recorded Payers Insurance Date Sequence Insurance Name Policy Number Policy Siu Covered Member ID Siu Member ID Guarantor Name 12/30/2018 [employer] [id number] [facility] Notes Date Note Type Note Provider Name and Address Organization Details Recorded Time 12/31/2018 text/html she was doing a 2 person assist and during that with her right hand got caught between the patient and her wheelchair. She had immediate pain in the 5th finger and went to the ER where x ray was negative and that was 8 days ago. 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 She is keeping it Lela Gallegos MD [address] [facility], [facility], [place], [address], [facility] 12/31/2018 15:07:10 OBGyn Episode No OBEpisode recorded.
--- OUTSIDE RECORDS SUMMARY | 2024-11-03 10:33 | XMS_ITS | Encounter Summary ---
Author Organization [facility] Address [address] [place] [address] Care Team Providers Care Stretcher Operator Name Role Phone Gabe Cohen MD Primary Care Provider [phone] Encounter Details Date Type Department Care Team [...] EDT Appointment [facility] [address] [place] [address] Isaura Rae 11/05/2024 9:45 AM EDT Appointment [facility] [address] [place] [address] Agueda Mccray 11/12/2024 9:00 AM EDT Appointment [facility] [address] [place] [address] Isaura Rae 11/12/2024 9:45 AM EDT Appointment [facility] [address] [place] [address] Agueda Mccray 11/19/2024 9:00 AM EDT Appointment [facility] [address] [place] [address] Isaura Rae 11/19/2024 9:45 AM EDT Appointment [facility] [address] [place] [address] Agueda Mccray A 11/26/2024 9:00 AM EDT Appointment [facility] [address] [place] [address] Isaura Rae 11/26/2024 9:45 AM EDT Appointment [facility] [address] [place] [address] Agueda Mccray A 12/03/2024 9:00 AM EDT Appointment [facility] [address] [place] [address] Isaura Rae 12/03/2024 9:45 AM EDT Appointment [facility] [address] [place] [address] Agueda Mccary A 12/10/2024 9:45 AM EDT Appointment [facility] [address] [place] [address] Agueda Mccray A 12/17/2024 9:00 AM EDT Appointment [facility] [address] [place] [address] Isaura Rae 12/17/2024 9:45 AM EDT Appointment [facility] [address] [place] [address] Agueda Mccray A 12/24/2024 9:00 AM EDT Appointment [facility] [address] [place] [address] Isaura Rae 12/24/2024 9:45 AM EDT Appointment [facility] [address] [place] [address] Agueda Mccray A 12/31/2024 9:00 AM EDT Appointment [facility] [address] [facility] [place] [address] Isaura Rae 12/31/2024 9:45 AM EDT Appointment [facility] [address] [place] [address] Agueda Mccray 01/07/2025 9:00 AM EDT Appointment [facility] [address] [place] [address] Isaura Rae 01/07/2025 9:45 AM EDT Appointment [facility] [address] [place] [address] Agueda Mccray 01/14/2025 9:00 AM EDT Appointment [facility] [address] [place] [address] Isaura Rae 01/14/2025 9:45 AM EDT Appointment [facility] [address] [place] [address] Agueda Mccray 01/21/2025 9:00 AM EDT Appointment [facility] [address] [place] [address] Isaura Rae 01/21/2025 9:45 AM EDT Appointment [facility] [address] [place] [address] Agueda Mccray documented as of this encounter Visit Diagnoses Not on filedocumented in this encounter Additional Health Concerns Assessment Noted Time A fall risk assessment has been complete d for the patient 06/04/2024 1:08 PM EST A Body Mass Index follow-up plan has been documented for the patient 06/04/2024 3:17 PM EST documented as of this encounter Care Teams Stretcher Operator Relationship Specialty Start Date End Date Gabe Cohen MD [address] [place] [address] #1 #1 RAZ Ann [address] PCP - General 09/08/20 documented as of this encounter
--- OUTSIDE RECORDS SUMMARY | 2024-11-03 10:34 | XMS_ITS | Clinical Summary ---
Author Organization [facility] ([place], [place], [place], [place]) Address [address] [place] [address] Care Team Providers Care Avionics Shop Supervisor Name Role Phone LeonardoMar Primary Care Provider [phone] Allergies Active Allergy Reactions Criticality Noted Date [...] drink = 0.6 oz pur e alcohol) Food Insecurity Answer Date Recorded Food run [...] Date [place] rded Speak language other than Angolan at home Not on file 05/09/2023 Want help with school or training Not on file 05/09/2023 Substance Use Answer Date Recorded Used prescription meds for non-medical reasons N ot on file 05/09/2023 Used illegal drugs past 12 months Not on file 05/09/2023 Comments Unknown Sex and Gender Information Value Date Recorded Sex Assigned at Female 06/22/2023 6:15 PM PACKAGE WORKER Legal Sex Female 5:55 PM CDT Gender Identity Female 06/22/2023 6:15 PM PACKAGE WORKER Sexual Orientation Straight 06/22/2023 6: 15 PM PACKAGE WORKER Last Filed Vital Signs Vital Sign Reading [...] of 2) 2020 COVID-19 VACCINE (3 - season) 12/28/202304/2020, 12/29/2020 Tobacco Cessation Counseling and Screening (12+) 07/22/2024 07/23/2023 Influenza Vaccine (#1) 2024 DTAP/TDAP/TD VACCINES (2 - Td or Tdap) 12/26/2026 Insurance [employer] [facility] Advance Directives For more information, please contact: [phone] Documents on File Type Date Recorded Patient Assistant Professor Of Marine Biology Expl anation Advance Directives and Livin g Will 03/29/2022 9:44 AM Care Teams Avionics Shop Supervisor Relationship Specialty Start Date End Date Mar Patterson [facility] [place] [address] PCP - General 02/26/22
--- OUTSIDE RECORDS SUMMARY | 2024-11-03 10:34 | XMS_ITS | Encounter Summary ---
Author Organization [facility] Address [address] [place] [address] Care Team Providers Care Drill Press Operator Helper Name Role Phone Gabe Cohen MD Primary Care Provider [phone] Encounter Details Date Type Department Care Team [...] EDT Appointment [facility] [address] [place] [address] Isaura Rae 11/05/2024 9:45 AM EDT Appoint[facility] [address] [place] [address] Agueda Mccray 11/12/2024 9:00 AM EDT Appointment [facility] [address] [place] [address] Isaura Rae 11/12/2024 9:45 AM EDT Appointment [facility] [address] [place] [address] Agueda Mccray 11/19/2024 9:00 AM EDT Appointment [facility] [address] [place] [address] Isaura Rae 11/19/2024 9:45 AM EDT Appointment [facility] [address] [place] [address] Agueda Mccray A 11/26/2024 9:00 AM EDT Appointment [facility] [address] [place] [address] Isaura Rae 11/26/2024 9:45 AM EDT Appointment [facility] [address] [place] [address] Agueda Mccray A 12/03/2024 9:00 AM EDT Appointment [facility] [address] [place] [address] Isaura Rae 12/03/2024 9:45 AM EDT Appointment [facility] [address] [place] [address] Agueda Mccray A 12/10/2024 9:45 AM EDT Appointment [facility] [address] [place] [address] Agueda Mccray A 12/17/2024 9:00 AM EDT Appointment [facility] [address] [place] [address] Isaura Rae 12/17/2024 9:45 AM EDT Appointment [facility] [address] [place] [address] Agueda Mccray A 12/24/2024 9:00 AM EDT Appointment [facility] [address] [place] [address] Isaura Rae 12/24/2024 9:45 AM EDT Appointment [facility] [address] [place] [address] Agueda Mccray A 12/31/2024 9:00 AM EDT Appointment [facility] [address] [place] [address] Isaura Rae 12/31/2024 9:45 AM EDT Appointment [facility] [address] [place] [address] Agueda Mccray 01/07/2025 9:00 AM EDT Appointment [facility] [address] [place] [address] Isaura Rae 01/07/2025 9:45 AM EDT Appointment [facility] [address] [place] [address] Agueda Mccray 01/14/2025 9:00 AM EDT Appointment [facility] [address] [place] [address] Isaura Rae 01/14/2025 9:45 AM EDT Appointment [facility] [address] [place] [address] Agueda Mccray 01/21/2025 9:00 AM EDT Appointment [facility] [address] [place] [address] Isaura Rae 01/21/2025 9:45 AM EDT Appointment [facility] [address] [place] [address] Agueda Mccray documented as of this encounter Visit Diagnoses Not on filedocumented in this encounter Additional Health Concerns Assessment Noted Time A fall risk assessment has been complete d for the patient 06/04/2024 1:08 PM EST A Body Mass Index follow-up plan has been documented for the patient 06/04/2024 3:17 PM EST documented as of this encounter Care Teams Drill Press Operator Helper Relationship Specialty Start Date End Date Gabe Cohen MD [address] [place] [address] #1 #1 [place]Z Ann [address] PCP - General 09/08/20 documented as of this encounter
--- OUTSIDE RECORDS SUMMARY | 2024-11-03 10:34 | XMS_ITS | Encounter Summary ---
Author Organization [employer] ([place], [place], [place], [place]) Address [address] [place] [address] Care Team Providers Care Resort Host Name Role Phone Mar Patterson Primary Care Provider [phone] Encounter Details Date Type Department Care Team (Late st Contact Info) Description 08/08/2020 Transcribed Document [facility] [place] [facility] [place] [address] ProviderJustin MD [address] [place], [place] [address] Social History Tobacco Use Types Packs/Day Years Used Date Smoking Tobacco: Never Assessed Comments Unknown Sex and Gender Information Value Date Recorded Sex Assigned at Female 06/22/2023 6:15 PM [employer] Legal Sex Female 5:55 PM CDT Gender Identity Female 06/22/2023 6:15 PM [employer] Sexual Orientation Straight 06/22/2023 6: 15 PM [employer] documented as of this encounter Miscellaneous Notes * Cerner Conversion Note - Justin ProviderMD - 08/08/2020 4:08 PM CDT ED Event Note Entered On: 08/08/2020 16:08 EDT Performed On: 08/08/2020 16:08 EDT by Kenyatta Miles Flex Team specialty person Event Note ED Event Date/Time : 08/08/2020 16:08 EDT ED Description of Event : pt was registered in error, pt is employee COVID test Kenyatta Miles Flex Team Rn - 08/08/2020 16:08 EDT documented in this encounter Plan of Treatment Not on file documented as of this encounter Visit Diagnoses Not on filedocumented in this encounter Care Teams Resort Host Relationship Specialty Start Date End Date Mar Patterson [address] [place] [id number] PCP - General 02/26/22 documented as of this encounter
--- OUTSIDE RECORDS SUMMARY | 2024-11-03 10:34 | XMS_ITS | Encounter Summary ---
Author Organization [facility] Address [address] [place] [address] Care Team Providers Care Optimization Engineer Name Role Phone Gabe Cohen MD Primary Care Provider [phone] Encounter Details Date Type Department Care Team [...] EDT Appointment [facility] [address] [place] [address] Isaura Rae 11/05/2024 9:45 AM EDT Appointment [facility] [address] [place] [address] Agueda Mccray 11/12/2024 9:00 AM EDT Appointment [facility] [address] [place] [address] Isaura Rae 11/12/2024 9:45 AM EDT Appointment [facility] [address] [place] [address] Agueda Mccray 11/19/2024 9:00 AM EDT Appointment [facility] [address] [place] [address] Isaura Rae 11/19/2024 9:45 AM EDT Appointment [facility] [address] [place] [address] Agueda Mccray A 11/26/2024 9:00 AM EDT Appointment [facility] [address] [place] [address] Isaura Rae 11/26/2024 9:45 AM EDT Appointment [facility] [address] [place] [address] Agueda Mccray A 12/03/2024 9:00 AM EDT Appointment [facility] [address] [place] [address] Isaura Rae 12/03/2024 9:45 AM EDT Appointment [facility] [address] [place] [address] Agueda Mccray A 12/10/2024 9:45 AM EDT Appointment [facility] [address] [place] [address] Agueda Mccray A 12/17/2024 9:00 AM EDT Appointment [facility] [address] [place] [address] Isaura Rae 12/17/2024 9:45 AM EDT Appointment [facility] [address] [place] [address] Agueda Mccray A 12/24/2024 9:00 AM EDT Appointment [facility] [address] [place] [address] Isaura Rae 12/24/2024 9:45 AM EDT Appointment [facility] [address] [place] [address] Agueda Mccray A 12/31/2024 9:00 AM EDT Appointment [facility] [address] [place] [address] Isaura Rae 12/31/2024 9:45 AM EDT Appointment [facility] [address] [place] [address] Agueda Mccray 01/07/2025 9:00 AM EDT Appointment [facility] [address] [place] [address] Isaura Rae 01/07/2025 9:45 AM EDT Appointment [facility] [address] [place] [address] Agueda Mccray 01/14/2025 9:00 AM EDT Appointment [facility] [address] [place] [address] Isaura Rae 01/14/2025 9:45 AM EDT Appointment [facility] [address] [place] [address] Agueda Mccray 01/21/2025 9:00 AM EDT Appointment [facility] [address] [place] [address] Isaura Rae 01/21/2025 9:45 AM EDT Appointment [facility] [address] [place] [address] Agueda Mccray documented as of this encounter Visit Diagnoses Not on filedocumented in this encounter Additional Health Concerns Assessment Noted Time A fall risk assessment has been complete d for the patient 06/04/2024 1:08 PM EST A Body Mass Index follow-up plan has been documented for the patient 06/04/2024 3:17 PM EST documented as of this encounter Care Teams Optimization Engineer Relationship Specialty Start Date End Date Gabe Cohen MD [address] [place] [address] #1 #1 RAZ Ann [id number] PCP - General 09/08/20 documented as of this encounter
--- OUTSIDE RECORDS SUMMARY | 2024-11-03 10:34 | XMS_ITS | Referral Summary ---
Author Organization [employer] ([place], [place]) Address [address] [place] [address] Care Team Providers Care Welt Rougher Name Role Phone LeonardoMar Primary Care Provider [phone] Allergies Active Allergy Reactions Criticality Noted Date [...] Date [place] rded Speak language other than Filipino at home Not on file 05/09/2023 Want help with school or training Not on file 05/09/2023 Substance Use Answer Date Recorded Used prescription meds for non-medical reasons N ot on file 05/09/2023 Used illegal drugs past 12 months Not on file 05/09/2023 Comments Unknown Sex and Gender Information Value Date Recorded Sex Assigned at Female 06/22/2023 6:15 PM COSMETIC MANAGER Legal Sex Female 5:55 PM CDT Gender Identity Female 06/22/2023 6:15 PM COSMETIC MANAGER Sexual Orientation Straight 06/22/2023 6: 15 PM COSMETIC MANAGER Last Filed Vital Signs Vital Sign Reading [...] Plan of Treatment Not on file Insurance [employer] * Guarantor: [facility] Account Type Relation to Patient Date of Phone Billing Address Workers Comp Employer [address] [place] [address] Advance Directives For more information, please contact: [phone] Documents on File Type Date Recorded Patient Systems Security Consultant Expl anation Advance Directives and Livin g Will 03/29/2022 9:44 AM Care Teams Welt Rougher Relationship Specialty Start Date End Date Mar Patterson [address] [place] [id number] PCP - General 02/26/22
--- OUTSIDE RECORDS SUMMARY | 2024-11-03 10:34 | XMS_ITS | Clinical Summary ---
Author Organization [facility] Address [address] [place] [address] Care Team Providers Care Adjunct History Instructor Name Role Phone Gabe Cohen MD Primary Care Provider [phone] Allergies Active Allergy Reactions Criticality Noted Date [...] Encounters Date Type Department Care Team Description 10/25/2024 Plan of Care Documentation [facility] [address] [place] [address] 10/22/2024 8:57 AM EDT - 10/22/2024 11:59 PM EDT Hospital Encounter [facility] [address] [place] [address] Agueda Mccray Complex regional pain syndrome type 1 of left upper extremity (Primary Dx) Discharge Disposition: Still a Patient 10/22/2024 8:57 AM EDT - 10/22/2024 11:59 PM EDT Hospital Encounter [facility] [address] [place] [address] Isaura Rae Complex regional pain syndrome type 1 of left upper extremity (Primary Dx) Discharge Disposition: Still a Patient 10/22/2024 Travel 10/22/2024 Plan of Care Documentation [facility] [address] [place] [address] 10/15/2024 8:57 AM EDT - 10/15/2024 11:59 PM EDT Hospital Encounter [facility] [address] [place] [address] Isaura Rae Complex regional pain syndrome type 1 of left upper extremity (Primary Dx) Discharge Disposition: Still a Patient 10/15/2024 Travel 10/01/2024 8:59 AM EDT - 10/01/2024 11:59 PM EDT Hospital Encounter [facility] [address] [place] [address] Agueda Mccray A Complex regional pain syndrome type 1 of left upper extremity (Primary Dx) Discharge Disposition: Still a Patient 10/01/2024 8:58 AM EDT Hospital Encounter [facility] [address] [place] [address] Isaura Rae Complex regional pain syndrome type 1 of left upper extremity (Primary Dx) Discharge Disposition: Still a Patient 10/01/2024 Travel 09/24/2024 9:00 AM EDT - 09/24/2024 11:59 PM EDT Hospital Encounter [facility] [address] [place] [address] Isaura Rae Complex regional pain syndrome type 1 of left upper extremity (Primary Dx) Discharge Disposition: Still a Patient 09/24/2024 8:58 AM EDT - 09/24/2024 8:59 AM EDT Hospital Encounter [facility] [address] [place] [address] Agueda Mccray Complex regional pain syndrome type 1 of left upper extremity (Primary Dx) Discharge Disposition: Still a Patient 09/24/2024 Travel 09/24/2024 Plan of Care Documentation [facility] [address] [place] [address] 09/17/2024 8:57 AM EDT - 09/17/2024 11:59 PM EDT Hospital Encounter [facility] [address] [place] [address] Agueda Mccray A Complex regional pain syndrome type 1 of left upper extremity (Primary Dx) Discharge Disposition: Still a Patient 09/17/2024 8:57 AM EDT - 09/17/2024 11:59 PM EDT Hospital Encounter [facility] [address] [place] [address] Isaura Rae Complex regional pain syndrome type 1 of left upper extremity (Primary Dx) Discharge Disposition: Still a Patient 09/17/2024 Travel 09/03/2024 9:03 AM EDT - 09/03/2024 11:59 PM EDT Hospital Encounter [facility] [address] [place] [address] Agueda Mccray A Complex regional pain syndrome type 1 of left upper extremity (Primary Dx) Discharge Disposition: Still a Patient 09/03/2024 9:00 AM EDT - 09/03/2024 9:02 AM EDT Hospital Encounter [facility] [address] [place] [address] Isaura Rae Complex regional pain syndrome type 1 of left upper extremity (Primary Dx) Discharge Disposition: Still a Patient 09/03/2024 Travel 09/03/2024 Plan of Care Documentation [facility] [address] [place] [address] 08/27/2024 8:59 AM EDT - 08/27/2024 11:59 PM EDT Hospital Encounter [facility] [address] [place] [address] Agueda Mccray A Complex regional pain syndrome type 1 of left upper extremity (Primary Dx) Discharge Disposition: Still a Patient 08/27/2024 8:59 AM EDT - 08/27/2024 11:59 PM EDT Hospital Encounter [facility] [address] [place] [address] Isaura Rae Complex regional pain syndrome type 1 of left upper extremity (Primary Dx) Discharge Disposition: Still a Patient 08/27/2024 Travel 08/23/2024 Telephone [facility] [address] [place] [address] Luis Murray MD [facility] - Patient Message 08/20/2024 8:59 AM EDT - 08/20/2024 11:59 PM EDT Hospital Encounter [facility] [address] [place] [address] Isaura Rae Complex regional pain syndrome type 1 of left upper extremity (Primary Dx) Discharge Disposition: Still a Patient 08/20/2024 Travel 08/13/2024 8:54 AM EDT - 08/13/2024 11:59 PM EDT Hospital Encounter [facility] [address] [place] [address] Agueda Mccray A Complex regional pain syndrome type 1 of left upper extremity (Primary Dx) Discharge Disposition: Still a Patient 08/13/2024 8:54 AM EDT - 08/13/2024 11:59 PM EDT Hospital Encounter [facility] [address] [place] [address] Isaura Rae Complex regional pain syndrome type 1 of left upper extremity (Primary Dx) Discharge Disposition: Still a Patient 08/13/2024 Travel 08/09/2024 Plan of Care Documentation [facility] [address] [place] [address] 08/06/2024 9:45 AM EDT - 08/06/2024 11:59 PM EDT Hospital Encounter [facility] [address] [place] [address] Agueda Mccray Complex regional pain syndrome type 1 of left upper extremity (Primary Dx) Discharge Disposition: Still a Patient 08/06/2024 8:57 AM EDT - 08/06/2024 9:44 AM EDT Hospital Encounter [facility] [address] [place] [address] Isaura Rae Complex regional pain syndrome type 1 of left upper extremity (Primary Dx) Discharge Disposition: Still a Patient 08/06/2024 Travel from Last 3 Months Immunizations Immunization [...] EDT Appointment [facility] [address] [place] [address] Isaura Rae 11/05/2024 9:45 AM EDT Appointment [facility] [address] [place] [address] Agueda Mccray 11/12/2024 9:00 AM EDT Appointment [facility] [address] [place] [address] Isaura Rae 11/12/2024 9:45 AM EDT Appointment [facility] [address] [place] [address] Agueda Mccray 11/19/2024 9:00 AM EDT Appointment [facility] [address] [place] [address] Isaura Rae 11/19/2024 9:45 AM EDT Appointment [facility] [address] [place] [address] Agueda Mccray 11/26/2024 9:00 AM EDT Appointment [facility] [address] [place] [address] Isaura Rae 11/26/2024 9:45 AM EDT Appointment [facility] [address] [place] [address] Agueda Mccray 12/03/2024 9:00 AM EDT Appointment [facility] [address] [place] [address] Isaura Rae 12/03/2024 9:45 AM EDT Appointment [facility] [address] [place] [address] Agueda Mccray 12/10/2024 9:45 AM EDT Appointment [facility] [address] [place] [address] Agueda Mccray A 12/17/2024 9:00 AM EDT Appointment [facility] [address] [place] [address] Isaura Rae 12/17/2024 9:45 AM EDT Appointment [facility] [address] [place] [address] Agueda Mccray A 12/24/2024 9:00 AM EDT Appointment [facility] [address] [place] [address] Isaura Rae 12/24/2024 9:45 AM EDT Appointment [facility] [address] [place] [address] Agueda Mccray A 12/31/2024 9:00 AM EDT Appointment [facility] [address] [place] [address] Isaura Rae 12/31/2024 9:45 AM EDT Appointment [facility] [address] [place] [address] Agueda Mccray A 01/07/2025 9:00 AM EDT Appointment [facility] [address] [place] [address] Isaura Rae 01/07/2025 9:45 AM EDT Appointment [facility] [address] [place] [address] Agueda Mccray A 01/14/2025 9:00 AM EDT Appointment [facility] [address] [place] [address] Isaura Rae 01/14/2025 9:45 AM EDT Appointment [facility] [address] [place] [address] Agueda Mccray A 01/21/2025 9:00 AM EDT Appointment [facility] [address] [place] [address] Isaura Rae 01/21/2025 9:45 AM EDT Appointment [facility] [address] [place] [address] Agueda Mccray Health Maintenance Due Date Last [...] 2020 [facility]-Zoster Vaccines (1 of 2) 2020 [id number] Vaccine (3 - 2023- season) 2023 01/26/2021, 12/29/2020 [facility]-Influenza Vaccine (#1) 12/27/202403/26, 02/09/2020, 03/03/2009 [facility]-DTaP,Tdap,and Td Vaccine s (2 [...] complete this topic Insurance [employer] Care Teams Adjunct History Instructor Relationship Specialty Start Date End Date Gabe Cohen MD [address] [place] [address] #1 #1 [place] Ann [address] PCP - General 09/08/20
--- OUTSIDE RECORDS SUMMARY | 2024-11-03 10:34 | XMS_ITS | Encounter Summary ---
Author Organization [employer] ([place], [place], [place], [place]) Address [address] [place] [address] Care Team Providers Care Hand Mexican Food Maker Name Role Phone Mar Patterson Primary Care Provider [phone] Encounter Details Date Type Department Care Team (Late st Contact Info) Description 08/08/2020 Transcribed Document [facility] [place] [facility] [place] [address] ProviderJustin MD [address], [place] [id number] Social History Tobacco Use Types Packs/Day Years Used Date Smoking Tobacco: Never Assessed Comments Unknown Sex and Gender Information Value Date Recorded Sex Assigned at Female 06/22/2023 6:15 PM MIDDLE SCHOOL FOOTBALL COACH Legal Sex Female 5:55 PM CDT Gender Identity Female 06/22/2023 6:15 PM MIDDLE SCHOOL FOOTBALL COACH Sexual Orientation Straight 06/22/2023 6: 15 PM MIDDLE SCHOOL FOOTBALL COACH documented as of this encounter Miscellaneous Notes * Cerner Conversion Note - Justin ProviderMD - 08/08/2020 3:10 PM CDT ED Triage Entered On: 08/08/2020 15:33 EDT Performed On: 08/08/2020 15:24 EDT by AYDIN ALVAREZ RN ED Triage Across the Room Chief Complaint : Pt having covid sx since yesterday. fever, dizzy nausea and ta. Also her face and neck is very ed and burning. Was sent from [employer] for covid test. Triage Date/Time : 08/08/2020 15:24 EDT AYDIN ALVAREZ RN - 08/08/2020 15:24 EDT DCP GENERIC CODE Tracking Acuity : 3 - Urgent Tracking Group : [facility] ED AYDIN ALVAREZ RN - 08/08/2020 15:24 [...] 15:33:07 EDT) Problems(Active) Abdominal pain (SNOMED CT :23634348 ) Name of Problem: Abdominal pain ; Recorder: CORBIN MARKS RN; Confirmation: Confirmed ; Classification: Medical ; Code: 33199981 ; Contributor System: AdGrokChart ; Last Updated: 09/24/2016 9:30 EDT ; Life Cycle Date: 09/24/2016 ; Life Cycle Status: Active ; Vocabulary: SNOMED CT Back pain (SNOMED CT :436742988 ) Name of Problem: Back pain ; Recorder: CORBIN MARKS RN; Confirmation: Confirmed ; Classification: Medical ; Code: 023313979 ; Contributor System: PowerChart ; Last Updated: 09/24/2016 9:30 EDT ; Life Cycle Date: 09/24/2016 ; Life Cycle Status: Active ; Vocabulary: SNOMED CT Blood in stool (SNOMED CT :9780653282 ) Name of Problem: Blood in stool ; Recorder: CORBIN MARKS RN; Confirmation: Confirmed ; Classification: Medical ; Code: 8697417644 ; Contributor System: PowerChart ; Last Updated: 09/24/2016 9:30 EDT ; Life Cycle Date: 09/24/2016 ; Life Cycle Status: Active ; Vocabulary: SNOMED CT Change in bowel habits (SNOMED CT :755020744 ) Name of Problem: Change in bowel habits ; Recorder: CORBIN MARKS RN; Confirmation: Confirmed ; Classification: Medical ; Code: 074900809 ; Contributor System: PowerChart ; Last Updated: 09/24/2016 9:29 EDT ; Life Cycle Date: 09/24/2016 ; Life Cycle Status: Active ; Vocabulary: SNOMED CT Constipation (SNOMED CT :852348019 ) Name of Problem: Constipation ; Recorder: CORBIN MARKS RN; Confirmation: Confirmed ; Classification: Medical ; Code: 188586644 ; Contributor System: PowerChart ; Last Updated: 09/24/2016 9:30 EDT ; Life Cycle Date: 09/24/2016 ; Life Cycle Status: Active ; Vocabulary: SNOMED CT Crohns disease (SNOMED CT :5771456360 ) Name of Problem: Crohns disease ; Recorder: CORBIN MARKS RN; Confirmation: Confirmed ; Classification: Medical ; Code: 8050112298 ; Contributor System: PowerChart ; Last Updated: 09/24/2016 9:29 EDT ; Life Cycle Date: 09/24/2016 ; Life Cycle Status: Active ; Vocabulary: SNOMED CT Diarrhea (SNOMED CT :668029075 ) Name of Problem: Diarrhea ; Recorder: CORBIN MARKS RN; Confirmation: Confirmed ; Classification: Medical ; Code: 212099925 ; Contributor System: PowerChart ; Last Updated: 09/24/2016 9:30 EDT ; Life Cycle Date: 09/24/2016 ; Life Cycle Status: Active ; Vocabulary: SNOMED CT Hyperlipidemia (SNOMED CT :11904999 ) Name of Problem: Hyperlipidemia ; Recorder: CORBIN MARKS RN; Confirmation: Confirmed ; Classification: Medical ; Code: 33445091 ; Contributor System: PowerChart ; Last Updated: 09/24/2016 9:29 EDT ; Life Cycle Date: 09/24/2016 ; Life Cycle Status: Active ; Vocabulary: SNOMED CT Hypertension (SNOMED CT :3927975240 ) Name of Problem: Hypertension ; Recorder: CORBIN MARKS RN; Confirmation: Confirmed ; Classification: Medical ; Code: 2643184887 ; Contributor System: PowerChart ; Last Updated: 09/24/2016 9:29 EDT ; Life Cycle Date: 09/24/2016 ; Life Cycle Status: Active ; Vocabulary: SNOMED CT Loss of appetite (SNOMED CT :880578579 ) Name of Problem: Loss of appetite ; Recorder: CORBIN MARKS RN; Confirmation: Confirmed ; Classification: Medical ; Code: 008380325 ; Contributor System: PowerChart ; Last Updated: 09/24/2016 9:29 EDT ; Life Cycle Date: 09/24/2016 ; Life Cycle Status: Active ; Vocabulary: SNOMED CT Nausea (SNOMED CT :3904355335 ) Name of Problem: Nausea ; Recorder: CORBIN MARKS RN; Confirmation: Confirmed ; Classification: Medical ; Code: 5224114684 ; Contributor System: PowerChart ; Last Updated: 09/24/2016 9:30 EDT ; Life Cycle Date: 09/24/2016 ; Life Cycle Status: Active ; Vocabulary: SNOMED CT Rectal bleeding (SNOMED CT :935473368 ) Name of Problem: Rectal bleeding ; Recorder: CORBIN MARKS RN; Confirmation: Confirmed ; Classification: Medical ; Code: 181918492 ; Contributor System: Mobivery ; Last Updated: 09/24/2016 9:30 EDT ; Life Cycle Date: 09/24/2016 ; Life Cycle Status: Active ; Vocabulary: SNOMED CT Diagnoses(Active) Medical screening exam Date: 08/08/2020 ; Diagnosis Type: Reason For Visit ; Confirmation: Complaint of ; Clinical Dx: Medical screening exam ; Classification: Medical ; Clinical Service: Emergency medicine ; Code: PNED ; Probability: 0 ; Diagnosis Code: [id number] ED Height and Weight Height Source : Stated Height Entry Format : [place] Height, Feet : 5 ft(Converted to: 152 cm, 60 Inch) Height, Inches : 2 Inch(Converted to: 0 ft 2 Inch, 5.08 cm) Clinical Height : 157.48 cm Weight Source, ED : Critical estimated dosing weight Weight Entry Format : [place] Weight, Pounds : 150 lb Clinical Dosing Weight : 68.18 kg Body Surface Area (BSA) : 1.69 m2 Body Mass Index : 27.5 kg/m2 (HI) [place] Body Weight (IBW) : 49.73 kg AYDIN ALVAREZ RN - 08/08/2020 15:24 EDT Electronically signed by Elsie [facility] Conversion Garment Turner Cerner at 08/12/2022 12:13 PM CDT documented in this encounter Plan of Treatment Not on file documented as of this encounter Visit Diagnoses Not on filedocumented in this encounter Care Teams Hand Mexican Food Maker Relationship Specialty Start Date End Date Mar Patterson [address] [place] [id number] PCP - General 02/26/22 documented as of this encounter
--- OUTSIDE RECORDS SUMMARY | 2024-11-03 10:34 | XMS_ITS | Encounter Summary ---
Author Organization [employer] ([place], [place], [place], [place]) Address [address] [place] [address] Care Team Providers Care Stock Sheets Cleaner Inspector Name Role Phone Mar Patterson Primary Care Provider [phone] Encounter Details Date Type Department Care Team (Late st Contact Info) Description 08/08/2020 Transcribed Document [facility] [place] Family Medicine [facility] [place] [address] ProviderJustin MD [address] [place] [id number] Social History Tobacco Use Types Packs/Day Years Used Date Smoking Tobacco: Never Assessed Comments Unknown Sex and Gender Information Value Date Recorded Sex Assigned at Female 06/22/2023 6:15 PM OPERATOR TECHNICIAN Legal Sex Female 5:55 PM CDT Gender Identity Female 06/22/2023 6:15 PM OPERATOR TECHNICIAN Sexual Orientation Straight 06/22/2023 6: 15 PM OPERATOR TECHNICIAN documented as of this encounter Miscellaneous Notes * Cerner Conversion Note - Justin Galaviz MD - 08/08/2020 4:08 PM CDT ED Discharge Entered On: 08/08/2020 16:09 EDT Performed On: 08/08/2020 16:08 EDT by Kenyatta Miles Flex Team Laborer Tree Tapping Process Patient Disposition : Other: Kenyatta Miles Flex Team Rn - 08/08/2020 16:08 EDT ED Discharge Discharge To : Other: registered in error Kenyatta Miles Flex Team Rn - 08/08/2020 16:08 EDT documented in this encounter Plan of Treatment Not on file documented as of this encounter Visit Diagnoses Not on filedocumented in this encounter Care Teams Stock Sheets Cleaner Inspector Relationship Specialty Start Date End Date Mar Patterson [address] [place] [id number] PCP - General 02/26/22 documented as of this encounter
--- OUTSIDE RECORDS SUMMARY | 2024-11-03 10:34 | XMS_ITS | Encounter Summary ---
Author Organization [facility] Address [address] [place] [address] Care Team Providers Care Videogame Designer Name Role Phone Gabe Cohen MD Primary Care Provider [phone] Reason for Visit * Reason Comments Med Refill Encounter Details Date Type Department Care Team (Late st Contact Info) Description 06/10/2023 Refill [facility] Interventional Pain Medicine [address] [place] [id number] Isaura May, DO [address] [place] [address] Complex regional pain syndrome type 1 of [...] EDT Appointment [facility] [address] [place] [address] Isaura Rae 11/05/2024 9:45 AM EDT Appointment [facility] [address] [place] [address] Agueda Mccray 11/12/2024 9:00 AM EDT Appointment [facility] [address] [facility] [place] [address] Isaura Rae 11/12/2024 9:45 AM EDT Appointment [facility] [address] [place] [address] Agueda Mccray A 11/19/2024 9:00 AM EDT Appointment [facility] [address] [place] [address] Isaura Rae 11/19/2024 9:45 AM EDT Appointment [facility] [address] [place] [address] Agueda Mccray A 11/26/2024 9:00 AM EDT Appointment [facility] [address] [place] [address] Isaura Rae 11/26/2024 9:45 AM EDT Appointment [facility] [address] [place] [address] Agueda Mccray A 12/03/2024 9:00 AM EDT Appointment [facility] [address] [place] [address] Isaura Rae 12/03/2024 9:45 AM EDT Appointment [facility] [address] [place] [address] Agueda Mccray A 12/10/2024 9:45 AM EDT Appointment [facility] [address] [place] [address] Agueda Mccray A 12/17/2024 9:00 AM EDT Appointment [facility] [address] [place] [address] Isaura Rae 12/17/2024 9:45 AM EDT Appointment [facility] [address] [place] [address] Agueda Mccray A 12/24/2024 9:00 AM EDT Appointment [facility] [address] [place] [address] Isaura Rae 12/24/2024 9:45 AM EDT Appointment [facility] [address] [place] [address] Agueda Mccray 12/31/2024 9:00 AM EDT Appointment [facility] [address] [place] [address] Isaura Rae 12/31/2024 9:45 AM EDT Appointment [facility] [address] [place] [address] Agueda Mccray 01/07/2025 9:00 AM EDT Appointment [facility] [address] [place] [address] Isaura Rae 01/07/2025 9:45 AM EDT Appointment [facility] [address] [place] [address] Agueda Mccray 01/14/2025 9:00 AM EDT Appointment [facility] [address] [place] [address] Isaura Rae 01/14/2025 9:45 AM EDT Appointment [facility] [address] [place] [address] Agueda Mccray 01/21/2025 9:00 AM EDT Appointment [facility] [address] [place] [address] Isaura Rae 01/21/2025 9:45 AM EDT Appointment [facility] [address] [place] [address] Agueda Mccray documented as of this encounter [...] documented as of this encounter Care Teams Videogame Designer Relationship Specialty Start Date End Date Gabe Cohen MD [address] [place] [address] #1 #1 RAZ Ann [id number] PCP - General 09/08/20 documented as of this encounter
--- OUTSIDE RECORDS SUMMARY | 2024-11-03 10:34 | XMS_ITS | Encounter Summary ---
Author Organization [facility] Address [address] [place] [address] Care Team Providers Care Sports Team Manager Name Role Phone Gabe Cohen MD Primary Care Provider [phone] Encounter Details Date Type Department Care Team (Late st Contact Info) Description 09/24/2024 Plan of Care Documentation [facility] [address] [place] [address] Social History Tobacco Use Types Packs/Day Years [...] Info) Description 11/05/2024 9:00 AM EDT Appointment [facility] [address] [place] [address] Isaura Rae 11/05/2024 9:45 AM EDT Appointment [facility] [address] [place] [address] Agueda Mccray 11/12/2024 9:00 AM EDT Appointment [facility] [address] [place] [address] Isaura Rae 11/12/2024 9:45 AM EDT Appointment [facility] [address] [place] [address] Agueda Mccray A 11/19/2024 9:00 AM EDT Appointment [facility] [address] [place] [address] Isaura Rae 11/19/2024 9:45 AM EDT Appointment [facility] [address] [place] [address] Agueda Mccray A 11/26/2024 9:00 AM EDT Appointment [facility] [address] [place] [address] Isaura Rae 11/26/2024 9:45 AM EDT Appointment [facility] [address] [place] [address] Agueda Mccray 12/03/2024 9:00 AM EDT Appointment [facility] [address] [place] [address] Isaura Rae 12/03/2024 9:45 AM EDT Appointment [facility] [address] [place] [address] Agueda Mccray A 12/10/2024 9:45 AM EDT Appointment [facility] [address] [place] [address] Agueda Mccray 12/17/2024 9:00 AM EDT Appointment [facility] [address] [place] [address] Isaura Rae 12/17/2024 9:45 AM EDT Appointment [facility] [address] [place] [address] Agueda Mccray 12/24/2024 9:00 AM EDT Appointment [facility] [address] [place] [address] Isaura Rae 12/24/2024 9:45 AM EDT Appointment [facility] [address] [place] [address] Agueda Mccray 12/31/2024 9:00 AM EDT Appointment [facility] [address] [place] [address] Isaura Rae 12/31/2024 9:45 AM EDT Appointment [facility] [address] [place] [address] Agueda Mccray 01/07/2025 9:00 AM EDT Appointment [facility] [address] [place] [address] Isaura Rae 01/07/2025 9:45 AM EDT Appointment [facility] [address] [place] [address] Agueda Mccray 01/14/2025 9:00 AM EDT Appointment [facility] [address] [place] [address] Isaura Rae 01/14/2025 9:45 AM EDT Appointment [facility] [address] [place] [address] Agueda Mccray 01/21/2025 9:00 AM EDT Appointment [facility] [address] [place] [address] Isaura Rae 01/21/2025 9:45 AM EDT Appointment [facility] [address] [place] [address] Agueda Mccray documented as of this encounter Visit Diagnoses Not on filedocumented in this encounter Additional Health Concerns Assessment Noted Time A fall risk assessment has been complete d for the patient 06/04/2024 1:08 PM EST A Body Mass Index follow-up plan has been documented for the patient 06/04/2024 3:17 PM EST documented as of this encounter Care Teams Sports Team Manager Relationship Specialty Start Date End Date Gabe Cohen MD [address] [place] [address] #1 #1 RAZ Ann [id number] PCP - General 09/08/20 documented as of this encounter
--- NOTE | 2024-11-03 10:36 | US_ITS ---
FINAL REPORT TECHNIQUE: Ultrasound images of the abdomen were obtained. CLINICAL HISTORY: abd / pelvic pain radiating towards back COMPARISON: None FINDINGS: The pancreas is obscured by bowel gas. The liver is unremarkable. The gallbladder is absent. The common duct is normal, measuring 3 mm in diameter. The right kidney measures 11.5 cm in length and is normal in echogenicity without hydronephrosis. The left kidney measures 11.6 cm in length and is normal in echogenicity without hydronephrosis. The spleen is unremarkable. The aorta is normal in caliber. The vena cava is unremarkable. IMPRESSION: Prior cholecystectomy without evidence of biliary ductal dilatation. Reviewed, Interpreted and Dictated by Bridger Geronimo MD Transcribed by Ida White Authenticated and [facility]
--- NOTE | 2024-11-03 11:15 | US_ITS ---
PROCEDURE: US TRANSVAGINAL CLINICAL INDICATION: PELVIC/ABDOMEN PAIN COMPARISON: US TRANVAG US transvaginal from 08/07/2017 US US ABDOMEN COMPLETE from 11/03/2024 FINDINGS: Transvaginal sonographic images of the pelvis were obtained. UTERUS: 6.1cm x 5.1x 4.4cm anteverted with a combined endometrial thickness that was not visualized and likely very thin. Fibroid 1. Anterior fibroid measuring 1.1 cm x 1.1 cm x 1.1 cm Fibroid 2. Fibroid seen on the right side and measures 1.1 cm x 1.0 cm x 1.0 cm Fibroid 3. Located posteriorly measuring 2.9 cm x 3.0 cm x 2.3 cm LEFT OVARY: Not visualized RIGHT OVARY: Not visualized Both ovaries are not seen There is no fluid in the cul-de-sac. IMPRESSION: 1. Anteverted uterus normal in shape and size. Within the uterus there are least 3 fibroids measuring 1.1 cm, 1.1 cm and 3.0 cm. The endometrium is not visualized well. 2. The ovaries could not be visualized today. 3. No fluid in the cul-de-sac. Dictated by: Obey Burt MD 11/03/2024 17:11 Obey Burt MD in OV 11/03/2024 17:11
== END 2024-11-03 23:59 | disposition home or self-care (01) ==
LOC: RAD 10:31
PROVIDERS: PCP Family Medicine; Visit Provider Family Medicine
DX: D25.9 Leiomyoma of uterus, unspecified (principal)
CPT/HCPCS: 76700; 76830